=== PATIENT | male | born 1965 | race Caucasian/White ===

== ENCOUNTER 2023-03-16 07:48 | Outpatient (RCR) | payer OTHER, SELFPAY | END 2023-03-18 14:41 | disposition home or self-care (01) | LOC: CR 07:48 | PROVIDERS: PCP Nurse Practitioner Family; Visit Provider Nurse Practitioner Family | DX: I25.10 Atherosclerotic heart disease of native coronary artery without angina pectoris (principal) ==

== ENCOUNTER 2023-03-23 07:52 | Outpatient (OUT) | payer OTHER, SELFPAY ==
[2023-03-23 09:18] LABS: Alanine Aminotransferase 24 U/L (16-63); Anion Gap 13.3; Aspartate Amino Transferase 15 U/L (15-37); BUN Creatinine Ratio 16.9; Calcium 8.9 mg/dL (8.5-10.1); Carbon Dioxide 27.6 mmol/L (21.0-32.0); Chloride 99 mmol/L (98-107); Chol HDL Ratio 2.4; Cholesterol 95 mg/dL (<=200); Estimated GFR (African America >60 (>=60); Estimated GFR (Non-African Ame >60 (>=60); Glucose 151 mg/dL (74-106); HDL Cholesterol 39 mg/dL (40-60); Potassium 3.9 mmol/L (3.5-5.1); Sodium 136 mmol/L (136-145); Triglycerides 44 mg/dL (<=150); VLDL CHOLESTEROL 8.8 mg/dL
== END 2023-03-23 07:53 ==
LOC: LAB 07:54
PROVIDERS: PCP Nurse Practitioner Family
DX: I25.10 Atherosclerotic heart disease of native coronary artery without angina pectoris (principal); I25.5 Ischemic cardiomyopathy; E78.2 Mixed hyperlipidemia
CPT/HCPCS: 36415; 80048; 80061; 83880; 84450; 84460

== ENCOUNTER 2024-05-19 09:08 | Outpatient (OUT) | payer OTHER, SELFPAY ==
[2024-05-19 09:56] LABS: Basophils Absolute Auto 0.1 10^3/uL (0.0-0.1); Eosinophils Absolute Auto 0.2 10^3/uL (0.0-0.7); Eosinophils Percent Auto 2.5 % (0.9-7.0); Hematocrit 36.9 % (42.0-54.0); Hemoglobin 13.1 g/dL (14.0-18.0); Immature Granulocytes Abs Auto 0.05 10^3/uL (0.00-0.03); Immature Granulocytes Pct Auto 0.6 % (0.0-0.5); Lymphocytes Absolute Auto 1.5 10^3/uL (1.2-3.8); Lymphocytes Percent Auto 17.9 % (20.5-60.0); Mean Corpuscular HGB Conc 35.5 g/dL (29.9-35.2); Mean Corpuscular Hemoglobin 28.9 pg (25.9-34.0); Mean Corpuscular Volume 81.5 fL (80.0-94.0); Mean Platelet Volume 9.4 fL (9.5-13.5); Monocytes Absolute Auto 0.7 10^3/uL (0.3-0.8); Monocytes Percent Auto 8.6 % (1.7-12.0); Neutrophils Absolute Auto 5.6 10^3/uL (1.4-6.5); Neutrophils Percent Auto 69.4 % (43.0-75.0); Platelet Count 276 10^3/uL (150-450); Red Blood Count 4.53 10^6/uL (4.70-6.10); Red Cell Distribution Width 14.4 % (11.0-15.0); White Blood Count 8.1 10^3/uL (4.0-11.0)
[2024-05-19 11:38] LABS: Estimated Average Glucose 108 mg/dL; Glycohemoglobin A1C 5.4 % (4.5-6.2)
[2024-05-19 12:26] LABS: Prostate Specific Antigen Scrn 2.43 ng/mL (<=4.00)
[2024-05-19 12:27] LABS: Alanine Aminotransferase 16 U/L (16-63); Albumin Globulin Ratio 0.9; Albumin Level 3.5 g/dL (3.4-5.0); Alkaline Phosphatase 83 U/L (46-116); Anion Gap 11.7; Aspartate Amino Transferase 11 U/L (15-37); BUN Creatinine Ratio 15.1; Calcium 8.6 mg/dL (8.5-10.1); Carbon Dioxide 27.5 mmol/L (21.0-32.0); Chloride 100 mmol/L (98-107); Chol HDL Ratio 3.1; Cholesterol 126 mg/dL (<=200); Estimated GFR (African America >60 (>=60); Estimated GFR (Non-African Ame >60 (>=60); Free T3 2.48 pg/mL (2.18-3.98); Globulin 3.8 g/dL; Glucose 123 mg/dL (74-106); HDL Cholesterol 41 mg/dL (40-60); LDL Cholesterol Calculated 77.8 mg/dL; Potassium 4.2 mmol/L (3.5-5.1); Sodium 135 mmol/L (136-145); Thyroid Stimulating Hormone 1.186 uIU/mL (0.358-3.740); Total Protein 7.3 g/dL (6.4-8.2); Triglycerides 36 mg/dL (<=150); Uric Acid 3.6 mg/dL (3.5-7.2); VLDL CHOLESTEROL 7.2 mg/dL
[2024-05-20 10:11] LABS: Insulin 10.6 uIU/mL (2.6-24.9)
== END 2024-05-19 09:09 | disposition home or self-care (01) ==
LOC: LAB 09:11
PROVIDERS: PCP Nurse Practitioner Family; Visit Provider Nurse Practitioner Family
DX: R63.4 Abnormal weight loss (principal)
CPT/HCPCS: 36415; 80053; 80061; 83036; 83525; 83540; 84436; 84443; 84481; 84550; 85025; G0103

== ENCOUNTER 2024-10-03 07:33 | Observation (INO) | payer OTHER, SELFPAY ==
[2024-10-03] VITALS (20 sets, daily range): BP systolic 90–128; BP diastolic 46–78; PULSE 61–98; TEMP 36.4–36.8; O2SAT 95–99; BMI 29.8; BMI 30.6
--- OUTSIDE RECORDS SUMMARY | 2024-10-03 07:39 | XMS_ITS | CCD ---
Author Organization [facility] Care Team Providers Care Power Transformer Repairer Name Role Phone MD yLdia Wheat Primary Care Provider [phone] MD Andrew Balbuena Admit Provider MD Andrew Balbuena Attending Provider MD Andrew Balbuena Referring Provider [phone] Lydia Wheat Primary Care Unavailable Andrew Balbuena Referring Unavailable Andrew Balbuena Attending Unavailable Anrdew Balbuena Admitting Unavailable Chelsea Cheatham Unavailable Unavailable Unavailable MISRachel, DR SANDRA Attending Unavailable CHELSEA CHEATHAM Primary Care Unavailable LUIS BERRIOS Consulting Unavailable YOVANA, DR SANDRA Admitting Unavailable CHELSEA CHEATHAM Primary Care Unavailable LUIS BERRIOS Attending Unavailable LUIS BERRIOS Admitting Unavailable LUIS BERRIOS Consulting Unavailable YOVANA, DR SANDRA Attending Unavailable CHELSEA CHEATHAM Consulting Unavailable CHELSEA CHEATHAM Primary Care Unavailable YOVANA, DR SANDRA Admitting Unavailable GLORIA .MADISON Attending Unavailable MADISON BRYANT Admitting Unavailable DR LYDIA ENCISO Primary Care Unavailable DR MELIDA SHEPHERD Consulting Unavailable AFIA Orourke, ROSA Consulting Unavailable GLORIA ., MADISON Consulting Unavailable Gary, Ms. Luis Gavin Attending Paolo Vega, Ms. Luis Gavin Referring Paolo Wheat, Dr. Lydia Kam Primary Care Unavail urbano Vega, Ms. Luis Gavin Attending Paolo Vega, Ms. Luis Gavin Attending Paolo Vega, Ms. Luis Gavin Referring Paolo Wheat, Dr. Lydia Kam Primary Care Unavail urbano Vega, Ms. Luis Gavin Attending Paolo Haile, Dr. Shyam Ruelas Attending Joyce Vega, Ms. Luis Gavin Attending Paolo Vega, MsSharad Gavin Referring Paolo Vega, Ms. Luis Gavin Referring Paolo Vega, MsSharad Gavin Attending Paolo Camp, Dr. Oro Attending Scar Camp, Dr. 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 90 tablet 3 05/25/2024 05/25/2025 Active Start: 11-17-2022 End: 05-25-2024 take 1 tablet by mouth once daily at bedtime atorvastatin (Lipitor) 80 mg tablet Take 1 tablet (80 mg) by mouth once daily at bedtime. 03/15/2023 05/25/2024 Discontinued (Discontinued by another clinician) carvedilol 6.25 mg oral tablet (8 sources) alpha-Adrenergic Keturah, beta-Adrenergic Keturah Start: 06-11-2023 take 1 tablet by mouth twice daily carvedilol (Coreg) 6.25 mg tablet Take 1 tablet (6.25 mg) by mouth 2 times daily (morning and late afternoon). 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 90 tablet 3 11/19/2023 11/18/2024 Active furosemide 20 mg oral tablet (9 sources) Loop Diuretic Start: 07-14-2023 End: 05-25-2024 take 1 tablet by mouth once daily as needed furosemide (Lasix) 20 mg tablet Indications: Cardiomyopathy, ischemic , Essential hypertension, benign Take 1 tablet (20 mg) by mouth once daily as needed (use daily as needed for swelling). 90 tablet 3 07/14/2023 05/25/2024 Discontinued (Discontinued by another clinician) Start: 11-26-2022 Furosemide 20 MG Oral Tablet TAKE 1 TABLET BY MOUTH ONCE DAILY FOR THE NEXT 3 DAYS THEN NEEDED FOR LOWER EXTREMITY EDEMA Quantity: 30 Refills: 2 Ordered: 26-Nov-2022 Romaine Vega APRN-Luis [facility] Start : 26-Nov-2022 Active metFORMIN hydrochloride 500 mg oral tablet (1 source) Biguanide End: 04-01-2023 take 1 tablet by mouth twice daily metFORMIN HCl - 500 MG Oral Tablet Take 1 tablet twice daily Quantity: 28 Refills: 0 Ordered: 18-Mar-2023 DO End : 01-Apr-2023 Active nitroglycerin 0.4 mg sublingual tablet (7 sources) Nitrate Vasodilator Start: 06-23-2023 nitroglycerin (Nitrostat) 0.[address] 1 tablet (0.4 mg) under the tongue every 5 minutes if needed. 06/23/2023 Active Start: 11-26-2022 Nitroglycerin 0.4 MG Sublingual Tablet Sublingual DISSOLVE 1 TABLET UNDER THE TONGUE NEEDED FOR CHEST PAIN. 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 06/11/2023 05/25/2024 Discontinued (Discontinued by another clinician) Start: 11-17-2022 take 25 mg by mouth once daily Spironolactone Active 25 MG PO Daily November 17, 2022 12:00am ticagrelor 90 mg oral tablet (7 sources) Start: 11-17-2022 End: 11-19-2023 take 1 tablet by mouth twice daily Brilinta 90 mg tablet Take 1 tablet (90 mg) by mouth 2 times a day. 0 02/16/2023 11/19/2023 Discontinued (Therapy completed) valsartan 80 mg oral tablet (8 sources) Angiotensin 2 Receptor Keturah Start: 11-24-2023 take 1 tablet by mouth twice daily valsartan (Diovan) 80 mg tablet Indications: Essential hypertension, benign TAKE 1 TABLET BY MOUTH TWICE A DAY 180 tablet 3 11/24/2023 Active Start: 06-11-2023 take 1 tablet by caleb th twice daily valsartan (Diovan) 80 mg tablet Take 1 tablet (80 mg) by mouth 2 times a day. 0 06/11/2023 Active Start: 11-17-2022 take 80 mg by mouth twice kelton y Valsartan Active 80 MG PO Twice daily 60 November 17, 2022 12:00am Problems Active Problems Problem Classification Problem Date Documented Da te Episodic/Chronic Acute myocardial infarction (19 sources) Acute myocardial infarction of anterior wall; Translations: [ST elevation (STEMI) myocardial infarction involving other coronary artery of anterior wall] Onset: 11-15-2022 11-15-2022 Chronic Congestive heart failure; nonhypertensive (2 sources) Heart failure with reduced ejection fraction; Translations: [Unspecified systolic (congestive) heart failure] Onset: 11-15-2022 11-15-2022 Chronic Coronary atherosclerosis and other heart disease (20 sources) Coronary arteriosclerosis; Translations: [Atherosclerotic heart disease of lytton coronary artery without angina pectoris] Onset: 11-15-2022 11-15-2022 Chronic Disorders of lipid metabolism (13 sources) Mixed hyperlipidemia; Translations: [Mixed hyperlipidemia] Onset: 12-11-2022 11-19-2023 Chronic Essential hypertension (11 sources) Benign hypertension; Translations: [Benign essential hypertension] Onset: 07-09-2023 11-19-2023 Chronic Nonspecific chest pain (3 sources) Other chest pain; Translations: [OTHER CHEST PAIN] Onset: 11-15-2022 Episodic Other lower respiratory disease (1 source) Acute pulmonary edema; Translations: [ACUTE PULMONARY EDEMA] Onset: 11-18-2022 Episodic Other nutritional; endocrine; and metabolic disorders (2 sources) Body mass index (BMI) 32.0-32.9, adult; Translations: [Body mass index (BMI) 32.0-32.9, adult] Onset: 05-25-2024 Chronic Other nutritional; endocrine; and metabolic disorders (2 sources) Body mass index 30+ - obesity; Translations: [Body mass index (BMI) 32.0-32.9, adult] Onset: 05-25-2024 05-25-2024 Chronic Residual codes; unclassified (4 sources) Chews tobacco ; Translations: [Tobacco use disorder] Episodic Substance-related disorders (4 sources) Nicotine dependence, chewing tobacco, uncomplicated; Translations: [Nicotine dependence] Onset: 05-25-2024 Chronic Unclassified (1 source) CONTACT W/AND (SUSP) EXPOS COVID-19; Translations: [CONTACT W/AND (SUSP) EXPOS COVID-19] Onset: 11-18-2022 Past or Other Problems Problem Classification Problem Date Documented Da te Episodic/Chronic Coronary atherosclerosis and other heart disease (3 sources) Stented coronary artery; Translations: [Coronary angioplasty status] Onset: 11-19-2023 11-15-2022 Episodic Other nutritional; endocrine; and metabolic disorders (7 sources) Obesity; Translations: [Obesity, unspecified] Onset: 07-09-2023 Resolved: 11-19-2023 11-19-2023 Chronic Other screening for suspected conditions (not mental disorders or infectious disease) (7 sources) Echocardiogram abnormal; Translations: [Nonspecific (abnormal) findings on radiological and other examination of other intrathoracic organs] Onset: 07-09-2023 Resolved: 11-19-2023 11-19-2023 Episodic Unclassified (5 sources) Never smoked tobacco; Translations: [Never a smoker] Results Test Name Value Interpretation Reference Range Facility Tobacco Screening.on 023 Tobacco use status CPHS a) Yes M [facility] [address] DO Work Phone: Tobacco Screening. Yes [facility] [address] DO Work Phone: Echocardiogramon 04-29-[address], [address] [place] [address] TRANSTHORACIC ECHOCARDIOGRAM REPORT Patient Name: CARSON Joey Physician: [id number] Israel Funez MD, [facility] Study Date: 04/29/2023 Referring Physician: LUIS VEGA MRN/PID: [id number] PCP: Accession/Order#: [id number] Department Location: [facility] Date of : 1965 Fellow: Gender: M Nurse: Dayne Wilkins RN Admit Date: Area Relief Pilot: Chata Solitario [facility], T Height: 180.34 cm CC Report to: Weight: 113.85 kg Study Type: Echocardiogram BSA: 2.32 m2 Blood Pressure: 118 /72 mmHg Diagnosis/ICD: I25.10-Atheroscleroti c heart disease of lytton coronary artery without angina pectoris; I25.5-Ischemic cardiomyopathy Indication: Hyperlipidemia, [place] and PTCA-11/15/2022, Chewing Tobacco Use, HTN, Obesity Procedure/CPT: Echo Limited-09412 Study Detail: The following Echo studies were performed: 2D and M-Mode. Optison used as a contrast agent for endocardial border definition. Total contrast used for this procedure was 0.7 mL via IV push. PHYSICIAN INTERPRETATION: Left Ventricle: Left ventricular systolic function is normal, with an estimated ejection fraction of 60-65%. There are no regional wall motion abnormalities. The left ventricular cavity size is normal. Left ventricular diastolic filling was not assessed. Left Atrium: The left atrium is upper limits of normal in size. Right Ventricle: The right ventricle is normal in size. There is normal right ventricular global systolic function. Right Atrium: The right atrium is normal in size. Aortic Valve: The aortic valve appears structurally normal. Aortic valve regurgitation was not assessed. Mitral Valve: The mitral valve is normal in structure. Mitral valve regurgitation was not assessed. Tricuspid Valve: The tricuspid valve is structurally normal. Tricuspid regurgitation was not assessed. Pulmonic Valve: The pulmonic valve is structurally normal. The pulmonic valve regurgitation was not assessed. Pericardium: There is no pericardial effusion noted. Aorta: The aortic root is normal. Systemic Veins: The inferior vena cava appears to be of normal size. In comparison to the previous echocardiogram(s): When compared to a study from 11/16/2022, the previously reported wall motion abnormalities in the LAD territory has completely recovered and ejection fraction has improved from 40% up to 65%. CONCLUSIONS: 1. Left ventricular systolic function is normal with a 60-65% estimated ejection fraction. 2. When compared to a study from 11/16/2022, the previously reported wall motion abnormalities in the LAD territory has completely recovered and ejection fraction has improved from 40% up to 65%. QUANTITATIVE DATA SUMMARY: 2D MEASUREMENTS: Normal Ranges: Ao Root d: 2.90 cm (2.0-3.7cm) LAs: 4.10 cm (2.7-4.0cm) RVIDd: 2.80 cm (0.9-3.6cm) IVSd: 1.10 cm (0.6-1.1cm) LVPWd: 1.10 cm (0.6-1.1cm) LVIDd: 5.10 cm (3.9-5.9cm) LVIDs: 3.80 cm LV Mass Index: 92.1 g/m2 LV % FS 25.5 % LV SYSTOLIC FUNCTION BY 2D PLANIMETRY (MOD): Normal Ranges: EF-A4C View: 60.1 % (>=55%) AORTIC VALVE: Normal Ranges: LVOT Diameter: 2.30 cm (1.8-2.4cm) [id number] Israel Funez MD, [facility] Electronically signed on 04/29/2023 at 3:33:21 PM Final Normal [facility] Tobacco Screening.on 023 Tobacco use status CPHS b) No M [facility] [address] DO Work Phone: Cardiac Stress Teston 2022 Cardiac Stress Test [facility] [place] [address] [facility], [address] [facility], [place] [address] Exercise Stress Test Patient Name: CARSON Ordering Physician: KAMI Study Date: 12/12/2022 Reading Physician: [id number] Wendy Camp MD MRN/PID: [id number] Supervising Physician: [id number] Shruti Flores MD Accession/Order#: [id number] Referring Physician: LUIS VEGA Date of : 1965 PCP: Gender: M Fellow: Height: 180.34 cm Nurse: Faina Moreira RN Weight: 113.85 kg Area Relief Pilot: N/A BSA: 2.32 m2 Technologist: BMI: 35.01 kg/m2 Additional Staff: Age: 57 years cc report to: Study Type: Cardiac Stress Test Diagnosis/ICD: I25.10-Atheroscleroti c heart disease; I21.09-ST elevation (STEMI) myocardial infarction involving other coronary artery of anterior wall Indication: STEMI Procedure/CPT: Stress Test Supervision-[id number] Falls Risk: Low: Patient has low risk for sustaining a fall; environmental safety interventions in place. Study Details: Correct procedure and correct patient verified verbally. Patient Performance: The peak heart rate achieved was 112 bpm, which was 69 % of the age predicted target heart rate of 163 bpm. The resting blood pressure was 100/60 mmHg with a heart rate of 80 bpm. The standing blood pressure was 114/60 mmHg with a heart rate of 84 bpm. The blood pressure response was normal. The test was terminated due to: fatigue. Mild sinus tachycardia. Double Product (HR x BP): 152. Baseline ECG: Resting ECG showed normal sinus rhythm with left anterior fascicular block. Normal sinus rhythm with nondiagnostic ST-T changes. Stress Stage Data: + +-- -+------+-------+ HR Sys BP Mendes BP + +-- -+------+-------+ Baseline Resting 80 100 60 + +-- -+------+-------+ Baseline Standing 84 114 60 + +-- -+------+-------+ Modified 98 120 60 + +-- -+------+-------+ Stage 1/2 109 110 60 + +-- -+------+-------+ Stage I 112 114 60 + +-- -+------+-------+ + +---+--- ---+-------+ HR Sys BP Mendes BP + +---+--- ---+-------+ Recovery I 112 100 60 + +---+--- ---+-------+ Recovery II 103 136 64 + +---+--- ---+-------+ Recovery III 90 130 80 + +---+--- ---+-------+ Recovery IV 86 130 80 + +---+--- ---+-------+ Summary: 1. Submaximal graded exercise stress test with nondiagnostic ST-T changes for ischemia. 2. Patient is reported atypical chest pain during recovery but not during exercise. 3. Appropriate hemodynamic response to exercise. 4. Limited exercise tolerance. 5. Recommend referral to cardiac rehab. [id number] Wendy Camp MD Electronically signed on 12/12/2022 at 3:55:12 PM Final Normal [facility] Cardiac Stress Test [facility] [place] [facility] [address] DO Work Phone: LIPID PROFILEon 12-10-2022 CHOL-HDL RATIO NORM SEE BELOW Normal [facility] Comment on above: Result Comment: 3.3 - 4.4 LOW RISK 4.4 - 7.1 AVERAGE RISK 7.1 - 11.0 MODERATE RISK >11.0 HIGH RISK Performed By: #### A LT, LIPID, AST ####[facility] [address] [place] [id number]. Martin Mello Cholesterol [Mass/Vol] 87 mg/dL Normal <=200 [facility] Comment on above: Performed By: #### A LT, LIPID, AST ####[facility] [address] [place] [id number]. Martin Mello Cholesterol in HDL [Mass/Vol] 33 mg/dL Critically low 40-60 [facility] Comment on above: Performed By: #### A LT, LIPID, AST ####[facility] [address] [place] [id number]. Martin Mello Cholesterol in LDL [Mass/Vol] 45.2 mg/dL Normal [facility] Comment on above: Performed By: #### A LT, LIPID, AST ####[facility] [address] [place] [id number]. Martin Mello Cholesterol.total/Choles terol in HDL [Mass ratio] 2.6 {ratio} Normal [facility] Comment on above: Performed By: #### A LT, LIPID, AST ####[facility] [address] [place] [id number]. Martin Mello HDL NORMAL > or = 60 mg/dl - LO W CARDIOVASCULAR RISK <40 mg/dl - HIGH CARDIOVASCULAR RISK Normal [facility] Comment on above: Performed By: #### A LT, LIPID, AST ####[facility] [address] [place], [place] [address]Yx. Martin Mello LDL CALC NORMAL SEE BELOW Normal [facility] Comment on above: Result Comment: <100 mg/dl OPTIMAL 100 - 129 mg/dl NEAR OR ABOVE OPTIMAL 130 - 159 mg/dl BORDERLINE HIGH 160 - 189 mg/dl HIGH >190 mg/dl VERY HIGH Performed By: #### A LT, LIPID, AST ####[facility] [address] [place] [id number]. Martin Mello Triglyceride [Mass/Vol] 44 mg/dL Normal <=150 [facility] Comment on above: Performed By: #### A LT, LIPID, AST ####[facility] [address] [place] [id number]. Martin Mello VLDL CALC 8.8 mg/dL Normal [facility] Comment on above: Performed By: #### A LT, LIPID, AST ####[facility] [address] [place] [id number]. Martin Mello SGOTon 12-10-2022 AST [Catalytic activity/Vol] 16 U/L Normal 15-37 [facility] Comment on above: Performed By: #### A LT, LIPID, AST ####[facility] [address] [place] [id number]. Martin Mello SGPTon 12-10-2022 ALT [Catalytic activity/Vol] 30 U/L Normal 16-63 [facility] Comment on above: Performed By: #### A LT, LIPID, AST ####[facility] [address] [place] [id number]. Martin Mello GLYCOHEMOGLOBIN A1Con 2022 ADA RECOMMENDATION SEE BELOW Normal [facility] Comment on above: Result Comment: ADA RECOMMENDED LIMIT 4.0 - 6.0 ADA THERAPEUTIC TARGET < 7.0 ACTION SUGGESTED > 7.0 Performed By: #### A 1C #### [facility] [address] [place] [address] Dr. Martin Mello Glucose [Mass/Vol] 163 mg/dL Normal [facility] Comment on above: Performed By: #### A 1C #### [facility] [address] [place] [address] Dr. Martin Mello HbA1c (Bld) [Mass fraction] 7.3 % Critically high 4.5-6.2 [facility] Comment on above: Performed By: #### A 1C #### [facility] [address] [place] [address] Dr. Martin Mello PROF CHEM 8 (BAS METB)on Anion gap [Moles/Vol] 12.4 mmol/L Normal [facility] Comment on above: Performed By: #### B MP #### [facility] [address] [place] [address] Dr. Martin Mello Calcium [Mass/Vol] 9.2 mg/dL Normal 8.5-10.1 [facility] Comment on above: Performed By: #### B MP #### [facility] [address] [place] [address] Dr. Martin Mello Chloride [Moles/Vol] 102 mmol/L Normal 98-107 [facility] Comment on above: Performed By: #### B MP #### [facility] [address] [place] [address] Dr. Martin Mello CO2 [Moles/Vol] 26.6 mmol/L Normal 21.0-32.[address] [facility] Comment on above: Performed By: #### B MP #### [facility] [address] [place] [address] Dr. Martin Mello Creatinine [Mass/Vol] 0.81 mg/dL Normal 0.70-1.30 [facility] Comment on above: Performed By: #### B MP #### [facility] [address] [place] [address] Dr. Martin Mello EGFR-AF SWAZI >60 Normal >=[address] [facility] Comment on above: Performed By: #### B MP #### [facility] [address] [place] [address] [address] Martin Mello EGFR-NON AF SWAZI >60 Normal >=60 [facility] Comment on above: Performed By: #### B MP #### [facility] [address] [place] [address] [address] Martin Mello Glucose [Mass/Vol] 205 mg/dL Critically high 74-106 [facility] Comment on above: Performed By: #### B MP #### [facility] [address] [place] [address] [address] Martin Mello Potassium [Moles/Vol] 4.0 mmol/L Normal 3.5-5.1 [facility] Comment on above: Performed By: #### B MP #### [facility] [address] [place] [address] [address] Martin Mello Sodium [Moles/Vol] 137 mmol/L Normal 136-145 [facility] Comment on above: Performed By: #### B MP #### [facility] [address] [place] [address] [address] Martin Mello Urea nitrogen [Mass/Vol] 10.0 mg/dL Normal 7.0-18.0 [facility] Comment on above: Performed By: #### B MP #### [facility] [address] [place] [address] [address] Martin Mello Urea nitrogen/Creatinine [Mass ratio] 12.3 mg/mg Normal [facility] Comment on above: Performed By: #### B MP #### [facility] [address] [place] [address] [address] Martin Mello Tobacco Screening.on 023 Adult depression screening assessment No [facility] [address] DO Work Phone: [phone] Fall risk assessment c) Not medically indicated [facility] [place] [address] [place] Work Phone: [phone] Tobacco use status CPHS b) No M [facility] [address] DO Work Phone: [phone] Anisocytosis LM Ql (Bld)Orde red By: Andrew Balbuena on 11-17-2022 Anisocytosis Ql (Bld) Moderate [facility] Basic Metabolic Panelon 11-05 Anion gap [Moles/Vol] 9.9 mmol/L Normal 6.0-15.0 [facility] Comment on above: Order Comment: FASTI NG Y Performed By: #### S CAN CBC, BMP, LIPID #### [facility] [address] Calcium [Mass/Vol] 8.8 mg/dL Normal 8.2-10.2 [facility] Comment on above: Order Comment: FASTI NG Y Performed By: #### S CAN CBC, BMP, LIPID #### [facility] [address] Chloride [Moles/Vol] 97 mmol/L Normal 95-114 [facility] Comment on above: Order Comment: FASTI NG Y Performed By: #### S CAN CBC, BMP, LIPID #### [facility] [address] [place] [address] CO2 [Moles/Vol] 27.1 mmol/L Normal 22.0-30.0 [facility] Comment on above: Order Comment: FASTI NG Y Performed By: #### S CAN CBC, BMP, LIPID #### [facility] [address] [place] [address] Creatinine [Mass/Vol] 0.96 mg/dL Normal 0.64-1.27 [facility] Comment on above: Order Comment: FASTI NG Y Performed By: #### S CAN CBC, BMP, LIPID #### [facility] [address] [place] [address] Creatinine Clr Calc Pharmacy 116.86 [facility] Comment on above: Order Comment: FASTI NG Y Performed By: #### S CAN CBC, BMP, LIPID #### [facility] [address] [place] [address] Estimated GFR ( Consuelo > 60 [facility] Comment on above: Order Comment: FASTI NG Y Result Comment: GFR estimated reference range: According to KDOQI guidelines, <60 ml/min/1.73m2 is sufficient to diagnose a patient with chronic kidney disease. Performed By: #### S CAN CBC, BMP, LIPID #### [facility] [address] [place] [address] [place] Estimated GFR (Non- Am > 60 Normal [facility] Comment on above: Order Comment: FASTI NG Y Performed By: #### S CAN CBC, BMP, LIPID #### [facility] [address] [place] [address] [place] Glucose [Mass/Vol] 262 mg/dL High 70-100 [facility] Comment on above: Order Comment: FASTI NG Y Result Comment: [facility] Glucose Reference Range is dependent on time and content of last meal. Glucose of more than 200 mg/dL in a nonstressed, ambulatory subject supports the diagnosis of Diabetes Mellitus. ADA recommended reference range Performed By: #### S CAN CBC, BMP, LIPID #### [facility] [address] Potassium [Moles/Vol] 4.0 mmol/L Normal 3.5-5.1 [facility] Comment on above: Order Comment: FASTI NG Y Performed By: #### S CAN CBC, BMP, LIPID #### [facility] [address] [place] [address] [place] Sodium [Moles/Vol] 130 mmol/L Low 136-146 [facility] Comment on above: Order Comment: FASTI NG Y Performed By: #### S CAN CBC, BMP, LIPID #### [facility] [address] [place] [address] [place] Urea nitrogen [Mass/Vol] 14 mg/dL Normal 9-23 [facility] Comment on above: Order Comment: FASTI NG Y Performed By: #### S CAN CBC, BMP, LIPID #### [facility] [address] [place] [address] [place] Basophils Auto (Bld) [#/Vol] Ordered By: Andrew Balbuena on 11-17-2022 Basophils (Bld) [#/Vol] 0.1 10*3/uL 0.0-0.2 [facility] Basophils/100 WBC Auto (Bld) Ordered By: Andrew Balbuena on 11-17-2022 Basophils/100 WBC (Bld) 0.6 % . [facility] Cholesterol [Mass/volume] in Serum or PlasmaOrdered By: Wendy Camp on 11-17-2022 Cholesterol [Mass/Vol] 107 mg/dL 140-200 [facility] Comment on above: Chol less than 200 m g/dl low riskChol 201-239 mg/dl borderline riskChol 240 mg/dl and greater high risk Cholesterol in LDL Calc [Mas s/Vol]Ordered By: Wendy Camp on 11-17-2022 Cholesterol in LDL [Mass/Vol] 69 mg/dL 0-100 [facility] Comment on above: LDL ATP III CLASSIFI CATIONLDL less than 100 mg/dL OptimalLDL 100-129 mg/dL Near or above optimalLDL 130-159 mg/dL Borderline highLDL 160-189 mg/dL HighLDL greater than 189 mg/dL Very high Cholesterol in VLDL Calc [Ma ss/Vol]Ordered By: Wendy Camp on 11-17-2022 Cholesterol in VLDL [Mass/Vol] 11 mg/dL [facility] Creatinine and Glomerular fi ltration rate.predicted panel (S/P/Bld)Ordered By: Andrew Balbuena on 11-17-2022 Creatinine [Mass/Vol] 0.96 mg/dL 0.64-1.27 [facility] ECH echo transthoracicon ECH echo transthoracic [place] [address] Echocardiogram Signed Patient: Carson Mendoza MR#: [id number] : 1965 Acct:[id number] Age/Sex: 57 / M ADM Date: 11/15/22 Loc: Room: [address] [place] [address] Type: ADM IN Attending Dr: Andrew Balbuena MD Ordering Provider: Andrew Balbuena MD Date of Service: 11/16/2209/26/500 ECH/ECH echo transthoracic: ANTERIOR STEMI Copies to: Israel Funez MD, [facility] Andrew Balbuena MD BSA: 2.5 m2 BP: 121/72 mmHg HR: 105 Reason For Study: ANTERIOR STEMI History: No cardiac history per patient Interpretation Summary Mild concentric left ventricular hypertrophy. There are regional wall motion abnormalities as specified. There is akinesis involving the distal two thirds of the septum extending into the left ventricular apex and the distal lateral wall Ejection Fraction = 40-45%. A variety of Doppler measurements indicate impaired left ventricular relaxation, which is associated with grade I/IV or mild diastolic dysfunction. There is no prior echocardiogram noted for this patient. Procedure/Quality: A two-dimensional transthoracic echocardiogram with color flow, Doppler and injection of contrast agent Definity was performed. The study was technically fair in quality. There is no prior echocardiogram noted for this patient. Left Ventricle: Mild concentric left ventricular hypertrophy. Ejection Fraction = 40-45%. A variety of Doppler measurements indicate impaired left ventricular relaxation, which is associated with grade I/IV or mild diastolic dysfunction. There are regional wall motion abnormalities as specified. There is akinesis involving the distal two thirds of the septum extending into the left ventricular apex and the distal lateral wall. Left Atrium: The left atrium appears normal in size. The atrial septum appears normal. Right Atrium: The right atrium appears normal in size. Right Ventricle: The right ventricular size, thickness and function are normal. Aortic Valve: The aortic valve is normal in structure and function. Mitral Valve: The mitral valve is normal in structure and function. Tricuspid Valve: The tricuspid valve is normal in structure and function. Pulmonic Valve: The pulmonic valve is not well seen, but is grossly normal. Arteries: The aortic root is normal size. Pericardium/Pleura: No pericardial effusion seen. There is no pleural effusion. IVC/Hepatic Viens: The IVC is normal in size with an inspiratory collapse of greater then 50%, suggesting normal right atrial pressure. Miscellaneous: No thrombus, vegetation or mass is seen. Measurements with Normals IVSd: 1.3 cm (0.7-1.1 cm)LVIDd: 4.0 cm (3.7-5.4 cm) LVPWd: 1.4 cm (0.7-1.1 cm)LVIDs: 2.6 cm (2.3-3.6 cm) LA dimension: 4.0 cm (2.3-4.0 cm)Ao root diam: 3.4 cm(2.0-3.6 cm) asc Aorta Diam: 3.5 cm(2.1-3.4cm) Doppler with Normals RVSP(TR): 21.6 mmHg (18-35mmHg) MV E max antonio: 86.5 cm/sec(0.8-1.3m/s) MV A max antonio: 53.1 cm/sec(0.0-0.0m/s) MV E/A: 1.6 (<1.5) MMode/2D Measurements Calculations RVDd: 2.8 cm FS: 34.3 % Ao root area: LVLd ap4: 8.9 cm TAPSE: 1.9 cm EDV(Teich): 9.0 cm2 EDV(MOD-sp4): RV S Antonio: 70.9 ml 200.0 ml 21.5 cm/sec ESV(Teich): LVLs ap4: 7.7 cm 25.6 ml ESV(MOD-sp4): EF(Teich): 63.9 % 131.0 ml EF(MOD-sp4): 34.5 % __ SV(MOD-sp4): LAV(MOD-sp4): LA A4 area: 12.5 cm2 69.0 ml 32.5 ml LA length (vol): 3.6 cm Doppler Measurements Calculations E/E' lat: 9.1 TV max P.0 mmHg TR max antonio: 203.6 cm/sec E/E' med: 11.2 TR max P.6 mmHg RAP systole: 5.0 mmHg Transcribed By: SCV Performed At: 11/17/22 0948 Signed By: Israel Funez MD, [facility] 11/17/22 1052 Normal [facility] Eosinophils Auto (Bld) [#/Vo l]Ordered By: Andrew Balbuena on 11-17-2022 Eosinophils (Bld) [#/Vol] 0.2 10*3/uL 0.0-0.45 [facility] Eosinophils/100 WBC Auto (Bl d)Ordered By: Andrew Balbuena on 11-17-2022 Eosinophils/100 WBC (Bld) 1.3 % . [facility] Erythrocyte distribution wid th Auto (RBC) [Ratio]Ordered By: Andrew Balbuena on 11-17-2022 Erythrocyte distribution width (RBC) [Ratio] 14.2 % 12.0-14.8 [facility] Estimated glomerular filtrat ion rate (GFR) non- AmericanOrdered By: Andrew Balbuena on 11-17-2022 GFR/1.73 sq M.predicted among non-blacks MDRD (S/P/Bld) [Vol rate/Area] > 60 mL/Min [facility] Hematocrit Auto (Bld) [Volum e fraction]Ordered By: Andrew Balbuena on 11-17-2022 Hematocrit (Bld) [Volume fraction] 43.1 % 38.8-50.0 [facility] Hemoglobin [Mass/volume] in BloodOrdered By: Andrew Balbuena on 11-17-2022 Hemoglobin (Bld) [Mass/Vol] 14.9 g/dL 13.0-17.0 [facility] Leukocytes [#/volume] correc nunu for nucleated erythrocytes in Blood by Automated counOrdered By: Andrew Balbuena on 11-17-2022 WBC corrected for nucl RBC Auto (Bld) [#/Vol] 14.0 10*3/uL 4.1-10.5 [facility] Lipid Panelon 11-17-2022 Cholesterol [Mass/Vol] 107 mg/dL Low 140-200 [facility] Comment on above: Order Comment: YOMI Daniels Result Comment: Chol less than 200 mg/dl low risk Chol 201-239 mg/dl borderline risk Chol 240 mg/dl and greater high risk Performed By: #### S CAN CBC, CMP, HS TROP #### [facility] [address] Cholesterol in HDL [Mass/Vol] 26 mg/dL Low 29-71 [facility] Comment on above: Order Comment: YOMI Daniels Result Comment: HDL CHOL ATP-III CLASSIFICATION Cardiovascular Risk HDL > or equal to 60 mg/dL LOW HDL < 40 mg/dL HIGH Performed By: #### S CAN CBC, CMP, HS TROP #### [facility] [address] Cholesterol.total/Choles terol in HDL [Mass ratio] 4.1 {ratio} Normal <5.0 [facility] Comment on above: Order Comment: YOMI Daniels Result Comment: PERF ORMED BY: [place] [address] PATHOLOGIST [employer] JANIYA SERRANO M.D. Performed By: #### S CAN CBC, CMP, HS TROP #### [facility] [address] LDL Cholesterol,Calculated 69 mg/dL Normal 0-100 [facility] Comment on above: Order Comment: YOMI Daniels Result Comment: LDL ATP III CLASSIFICATION LDL less than 100 mg/dL Optimal LDL 100-129 mg/dL Near or above optimal LDL 130-159 mg/dL Borderline high LDL 160-189 mg/dL High LDL greater than 189 mg/dL Very high Performed By: #### S CAN CBC, CMP, HS TROP #### [address] Triglyceride w/Reflex 59 mg/dL Normal 35-149 [facility] Comment on above: Order Comment: YOMI Daniels Result Comment: TRIG ATP III CLASSIFICATION TRIG less than 150 mg/dL Normal TRIG 150-199 mg/dL Borderline high TRIG 200-500 mg/dL High TRIG greater than 500 mg/dL Very high Standard traceable to the Center for Disease Conrtrol and Prevention (CDC) test method. Performed By: #### S CAN CBC, CMP, HS TROP #### [facility] [address] [place] [address] VLDL CHOLESTEROL 11 mg/dL Normal [facility] Comment on above: Order Comment: YOMI Daniels Performed By: #### S CAN CBC, CMP, HS TROP #### [facility] [address] [place] [address] [place] Lymphocytes Auto (Bld) [#/Vo l]Ordered By: Andrew Balbuena on 11-17-2022 Lymphocytes (Bld) [#/Vol] 2.9 10*3/uL 1.00-4.8 [facility] Lymphocytes/100 WBC Auto (Bl d)Ordered By: Andrew Balbuena on 11-17-2022 Lymphocytes/100 WBC (Bld) 20.9 % . [facility] MCH Auto (RBC) [Entitic mass ]Ordered By: Andrew Balbuena on 11-17-2022 MCH (RBC) [Entitic mass] 27.8 pg 27.5-35.2 [facility] MCHC Auto (RBC) [Mass/Vol]Or dered By: Andrew Balbuena on 11-17-2022 MCHC (RBC) [Mass/Vol] 34.6 g/dL 32.5-35.6 [facility] MCV Auto (RBC) [Entitic vol] Ordered By: Andrew Balbuena on 11-17-2022 MCV (RBC) [Entitic vol] 80.4 fL 83.5-101 [facility] Microcytes LM Ql (Bld)Ordere d By: Andrew Balbuena on 11-17-2022 Microcytes Ql (Bld) Moderate [facility] Monocytes Auto (Bld) [#/Vol] Ordered By: Andrew Balbuena on 11-17-2022 Monocytes (Bld) [#/Vol] 1.6 10*3/uL 0.0-0.8 [facility] Monocytes/100 WBC Auto (Bld) Ordered By: Andrew Balbuena on 11-17-2022 Monocytes/100 WBC (Bld) 11.8 % . [facility] Neutrophils Auto (Bld) [#/Vo l]Ordered By: Andrew Balbuena on 11-17-2022 Neutrophils (Bld) [#/Vol] 9.1 10*3/uL 1.8-7.7 [facility] Neutrophils/100 WBC Auto (Bl d)Ordered By: Andrew Balbuena on 11-17-2022 Neutrophils/100 WBC (Bld) 65.4 % . [facility] No Panel InformationOrdered By: Andrew Balbuena on 11-17-2022 Estimated GFR () > 60 mL/Min [facility] Comment on above: GFR estimated refere nce range: According to KDOQI guidelines, <60 ml/min/1.73m2 is sufficient to diagnose a patient with chronic kidney disease. Pharmacy Creatinine Clearance (Chem 116.86 [facility] Nucleated erythrocytes [Pres ence] in Blood by Automated countOrdered By: Andrew Balbuena on 11-17-2022 Nucleated RBC Auto Ql (Bld) 0.1 /100{WBC} 0-0.5 [facility] Platelet adequacy [Presence] in Blood by Light microscopyOrdered By: Andrew Balbuena on 11-17-2022 Platelets LM Ql (Bld) Normal Normal [facility] Platelet mean volume Auto (B ld) [Entitic vol]Ordered By: Andrew Balbuena on 11-17-2022 Platelet mean volume (Bld) [Entitic vol] 7.9 fL 6.6-10.1 [facility] Platelet morphology finding [Identifier] in BloodOrdered By: Andrew Balbuena on 11-17-2022 Platelet morphology finding Nom (Bld) Normal Normal [facility] Platelets Auto (Bld) [#/Vol] Ordered By: Andrew Balbuena on 11-17-2022 Platelets (Bld) [#/Vol] 347 10*3/uL 150-450 [facility] RBC Auto (Bld) [#/Vol]Ordere d By: Andrew Balbuena on 11-17-2022 RBC (Bld) [#/Vol] 5.36 10*6/uL 3.90-5.60 [facility] RBC morphologyOrdered By: St destini Balbuena on 11-17-2022 RBC morphology finding Nom (Bld) N/A [facility] Scan and CBCon 11-17-2022 Anisocytosis Ql (Bld) Moderate Normal [facility] Comment on above: Performed By: #### S CAN CBC, CMP, HS TROP #### [facility] [address] [place] [address] [place] Basophils (Bld) [#/Vol] 0.1 10*3/uL Normal 0.0-0.2 [facility] Comment on above: Performed By: #### S CAN CBC, CMP, HS TROP #### [facility] [address] [place] [address] [place] Basophils/100 WBC (Bld) 0.6 % Normal . [facility] Comment on above: Performed By: #### S CAN CBC, CMP, HS TROP #### [facility] [address] [place] [address] [place] Eosinophils (Bld) [#/Vol] 0.2 10*3/uL Normal 0.0-0.45 [facility] Comment on above: Performed By: #### S CAN CBC, CMP, HS TROP #### [facility] [address] [place] [address] [place] Eosinophils/100 WBC (Bld) 1.3 % Normal . [facility] Comment on above: Performed By: #### S CAN CBC, CMP, HS TROP #### [facility] [address] [place] [address] Erythrocyte distribution width (RBC) [Ratio] 14.2 % Normal 12.0-14.8 [facility] Comment on above: Performed By: #### S CAN CBC, CMP, HS TROP #### [address] Hematocrit (Bld) [Volume fraction] 43.1 % Normal 38.8-50.0 [facility] Comment on above: Performed By: #### S CAN CBC, CMP, HS TROP #### [address] Hemoglobin (Bld) [Mass/Vol] 14.9 g/dL Normal 13.0-17.0 [facility] Comment on above: Performed By: #### S CAN CBC, CMP, HS TROP #### [place] [address] [place] Lymphocytes (Bld) [#/Vol] 2.9 10*3/uL Normal 1.00-4.8 [facility] Comment on above: Performed By: #### S CAN CBC, CMP, HS TROP #### [place] [address] [place] Lymphocytes/100 WBC (Bld) 20.9 % Normal . [facility] Comment on above: Performed By: #### S CAN CBC, CMP, HS TROP #### [address] MCH (RBC) [Entitic mass] 27.8 pg Normal 27.5-35.2 [facility] Comment on above: Performed By: #### S CAN CBC, CMP, HS TROP #### [facility] [address] [place] [address] [place] MCV (RBC) [Entitic vol] 80.4 fL Low 83.5-101 [facility] Comment on above: Performed By: #### S CAN CBC, CMP, HS TROP #### [facility] [address] Mean Corpuscular HGB Conc 34.6 g/dL Normal 32.5-35.6 [facility] Comment on above: Performed By: #### S CAN CBC, CMP, HS TROP #### [facility] [address] Microcytosis Moderate Normal [facility] Comment on above: Performed By: #### S CAN CBC, CMP, HS TROP #### [facility] [address] [place] [address] [place] Monocytes (Bld) [#/Vol] 1.6 10*3/uL High 0.0-0.8 [facility] Comment on above: Performed By: #### S CAN CBC, CMP, HS TROP #### [facility] [address] [place] [address] [place] Monocytes/100 WBC (Bld) 11.8 % Normal . [facility] Comment on above: Performed By: #### S CAN CBC, CMP, HS TROP #### [facility] [address] [place] [address] [place] Neutrophils (Bld) [#/Vol] 9.1 10*3/uL High 1.8-7.7 [facility] Comment on above: Performed By: #### S CAN CBC, CMP, HS TROP #### [facility] [address] [place] [address] [place] Neutrophils/100 WBC (Bld) 65.4 % Normal . [facility] Comment on above: Performed By: #### S CAN CBC, CMP, HS TROP #### [facility] [address] [place] [address] [place] NRBC% 0.1 /100{WBC} Normal 0-0.5 [facility] Comment on above: Performed By: #### S CAN CBC, CMP, HS TROP #### [facility] [address] [place] [address] Platelet Estimate Normal Normal Normal [facility] Comment on above: Performed By: #### S CAN CBC, CMP, HS TROP #### [facility] [address] Platelet mean volume (Bld) [Entitic vol] 7.9 fL Normal 6.6-10.1 [facility] Comment on above: Performed By: #### S CAN CBC, CMP, HS TROP #### [facility] [address] Platelet Morphology Normal Normal Normal [facility] Comment on above: Result Comment: PERF ORMED BY: [place] [address] PATHOLOGIST [employer] JANIYA SERRANO M.D. Performed By: #### S CAN CBC, CMP, HS TROP #### [address] Platelets (Bld) [#/Vol] 347 10*3/uL Normal 150-450 [facility] Comment on above: Performed By: #### S CAN CBC, CMP, HS TROP #### [address] RBC (Bld) [#/Vol] 5.36 10*6/uL Normal 3.90-5.60 [facility] Comment on above: Performed By: #### S CAN CBC, CMP, HS TROP #### [address] WBC (Bld) [#/Vol] 14.0 10*3/uL High 4.1-10.5 [facility] Comment on above: Performed By: #### S CAN CBC, CMP, HS TROP #### [facility] [address] [place] [address] Serum or plasma anion gap de terminationOrdered By: Andrew Balbuena on 11-17-2022 Anion gap [Moles/Vol] 9.9 mmol/L 6.0-15.0 [facility] Serum or plasma calcium eva urement (mass/volume)Ordered By: Andrew Balbuena on 11-17-2022 Calcium [Mass/Vol] 8.8 mg/dL 8.2-10.2 [facility] Serum or plasma chloride caleb surement (moles/volume)Ordered By: Andrew Balbuena on 11-17-2022 Chloride [Moles/Vol] 97 mmol/L 95-114 [facility] Serum or plasma glucose eva urement (mass/volume)Ordered By: Andrew Balbuena on 11-17-2022 Glucose [Mass/Vol] 262 mg/dL 70-100 [facility] Comment on above: ADA recommended refe rence rangeRandom Glucose Reference Range is dependent on time and content of last meal. Glucose of more than 200 mg/dL in a nonstressed, ambulatory subject supports the diagnosis of Diabetes Mellitus. Serum or plasma high density lipoprotein (HDL) cholesterol measurementOrdered By: Wendy Camp on 11-17-2022 Cholesterol in HDL [Mass/Vol] 26 mg/dL 29-71 [facility] Comment on above: HDL CHOL ATP-III CLA SSIFICATION Cardiovascular RiskHDL > or equal to 60 mg/dL LOWHDL < 40 mg/dL HIGH Serum or plasma potassium me asurement (moles/volume)Ordered By: Andrew Balbuena on 11-17-2022 Potassium [Moles/Vol] 4.0 mmol/L 3.5-5.1 [facility] Serum or plasma sodium measu rement (moles/volume)Ordered By: Andrew Balbuena on 11-17-2022 Sodium [Moles/Vol] 130 mmol/L 136-146 [facility] Serum or plasma total carbon dioxide measurement (moles/volume)Ordered By: Andrew Balbuena on 11-17-2022 CO2 [Moles/Vol] 27.1 mmol/L 22.0-30.0 [facility] Serum or plasma total choles terol/high density lipoprotein (HDL) cholesterol mass ratOrdered By: Wendy Camp on 11-17-2022 Cholesterol.total/Choles terol in HDL [Mass ratio] 4.1 {ratio} <5.0 [facility] Serum or plasma urea nitroge n measurement (mass/volume)Ordered By: Andrew Balbuena on 11-17-2022 Urea nitrogen [Mass/Vol] 14 mg/dL 9- [facility] Triglyceride [Mass/volume] i n Serum or PlasmaOrdered By: Wendy Camp on 11-17-2022 Triglyceride [Mass/Vol] 59 mg/dL 35-149 [facility] Comment on above: TRIG ATP III CLASSIF ICATIONTRIG less than 150 mg/dL NormalTRIG 150-199 mg/dL Borderline highTRIG 200-500 mg/dL High TRIG greater than 500 mg/dL Very highStandard traceable to the Center for Disease Conrtrol and Prevention (CDC) test method. WBC Auto (Bld) [#/Vol]Ordere d By: Andrew Balbuena on 11-17-2022 WBC (Bld) [#/Vol] 14.0 10*3/uL 4.1-10.5 [facility] Body fluid albumin measureme nt (mass/volume)Ordered By: Andrew Balbuena on 11-16-2022 Albumin (Body fld) [Mass/Vol] 3.3 g/dL 3.2-5.5 [facility] Comprehensive Metabolic Pane юлия 11-16-2022 Albumin [Mass/Vol] 3.3 g/dL Normal 3.2-5.5 [facility] Comment on above: Performed By: #### S CAN CBC, CMP, HS TROP #### [facility] [address] [place] [address] [place] Albumin/Globulin [Mass ratio] 0.9 {ratio} Normal [facility] Comment on above: Performed By: #### S CAN CBC, CMP, HS TROP #### [facility] [address] [place] [address] [place] ALP [Catalytic activity/Vol] 70 U/L Normal 32-92 [facility] Comment on above: Performed By: #### S CAN CBC, CMP, HS TROP #### [facility] [address] [place] [address] [place] ALT [Catalytic activity/Vol] 34 U/L Normal 10-60 [facility] Comment on above: Performed By: #### S CAN CBC, CMP, HS TROP #### [facility] [address] [place] [address] [place] Anion gap [Moles/Vol] 11.5 mmol/L Normal 6.0-15.0 [facility] Comment on above: Performed By: #### S CAN CBC, CMP, HS TROP #### [facility] [address] [place] [address] [place] AST [Catalytic activity/Vol] 78 U/L High 10-42 [facility] Comment on above: Performed By: #### S CAN CBC, CMP, HS TROP #### [facility] [address] [place] [address] [place] Bilirubin [Mass/Vol] 2.4 mg/dL High 0.3-1.2 [facility] Comment on above: Result Comment: Samp les from patients who have taken Naproxen have shown spurious elevation in Total Bilirubin levels. A metabolite of Naproxen, O-desmethylnaproxen, has been shown to interfere with the Jendrassik-Grof method for measuring Total Bilirubin. Performed By: #### S CAN CBC, CMP, HS TROP #### [facility] [address] [place] [address] [place] Calcium [Mass/Vol] 8.8 mg/dL Normal 8.2-10.2 [facility] Comment on above: Performed By: #### S CAN CBC, CMP, HS TROP #### [facility] [address] [place] [id number] [place] Chloride [Moles/Vol] 97 mmol/L Normal 95-114 [facility] Comment on above: Performed By: #### S CAN CBC, CMP, HS TROP #### [facility] [address] [place] [id number] [place] CO2 [Moles/Vol] 24.0 mmol/L Normal 22.0-30.0 [facility] Comment on above: Performed By: #### S CAN CBC, CMP, HS TROP #### [facility] [address] [place] [id number] [place] Creatinine [Mass/Vol] 0.84 mg/dL Normal 0.64-1.27 [facility] Comment on above: Performed By: #### S CAN CBC, CMP, HS TROP #### [facility] [address] Creatinine Clr Calc Pharmacy 133.78 [facility] Comment on above: Result Comment: PERF ORMED BY: [place] [address] PATHOLOGIST [employer] JANIYA SERRANO M.D. Performed By: #### S CAN CBC, CMP, HS TROP #### [facility] [address] Estimated GFR ( Consuelo > 60 [facility] Comment on above: Result Comment: GFR estimated reference range: According to KDOQI guidelines, <60 ml/min/1.73m2 is sufficient to diagnose a patient with chronic kidney disease. Performed By: #### S CAN CBC, CMP, HS TROP #### [facility] [address] [place] [address] Estimated GFR (Non- Am > 60 [facility] Comment on above: Performed By: #### S CAN CBC, CMP, HS TROP #### [facility] [address] [place] [address] Globulin (S) [Mass/Vol] 3.8 g/dL Normal [facility] Comment on above: Performed By: #### S CAN CBC, CMP, HS TROP #### [facility] [address] [place] [address] Glucose [Mass/Vol] 231 mg/dL High 70-100 [facility] Comment on above: Result Comment: [place] Glucose Reference Range is dependent on time and content of last meal. Glucose of more than 200 mg/dL in a nonstressed, ambulatory subject supports the diagnosis of Diabetes Mellitus. ADA recommended reference range Performed By: #### S CAN CBC, CMP, HS TROP #### [facility] [address] [place] [address] Potassium [Moles/Vol] 3.5 mmol/L Normal 3.5-5.1 [facility] Comment on above: Performed By: #### S CAN CBC, CMP, HS TROP #### [facility] [address] [place] [address] [place] Protein [Mass/Vol] 7.1 g/dL Normal 6.1-7.9 [facility] Comment on above: Performed By: #### S CAN CBC, CMP, HS TROP #### [facility] [address] [place] [address] [place] Sodium [Moles/Vol] 129 mmol/L Low 136-146 [facility] Comment on above: Performed By: #### S CAN CBC, CMP, HS TROP #### [facility] [address] [place] [address] [facility] Urea nitrogen [Mass/Vol] 10 mg/dL Normal 06-27 [facility] Comment on above: Performed By: #### S CAN CBC, CMP, HS TROP #### [facility] [address] [place] [id number] [facility] ECG 12 lead ECGon 11-16-2022 ECG 12 lead ECG [facility] [place] [address] [place] [address] Electrocardiograph Report Signed Patient: Carson Mendoza MR#: [id number] : 1965 Acct:[id number] Age/Sex: 57 / M ADM Date: 11/15/22 Loc: Room: [address] [place] [address] Type: ADM IN Attending Dr: Andrew Balbuena MD Ordering Provider: Andrew Balbuena MD Date of Service: 11/16/2209/26/500 ECG/ECG 12 lead ECG: Post Angioplasty Procedure in AM Copies to: Test Reason : Blood Pressure : / mmHG Vent. Rate : 099 BPM Atrial Rate : 099 BPM P-R Int : 174 ms QRS Dur : 118 ms QT Int : 398 ms P-R-T Axes : 052 -73 080 degrees QTc Int : 510 ms Normal sinus rhythm Incomplete right bundle branch block Left anterior fascicular block Cannot rule out Anteroseptal infarct , age undetermined Prolonged QT Abnormal ECG No previous ECGs available Confirmed by DOMI KELLEY, WENDY ([facility]) on 11/16/2022 11:15:53 AM Referred By: Andrew Tann Electronically Signed By:WENDY CAMP MD Transcribed By: MUS Signed By Wendy Camp MD 0 11/16/22 1115 Normal [facility] Globulin Calc (S) [Mass/Vol] Ordered By: Andrew Balbuena on 11-16-2022 Globulin (S) [Mass/Vol] 3.8 g/dL [facility] Polychromasia [Presence] in Blood by Light microscopyOrdered By: Andrew Balbuena on 11-16-2022 Polychromasia LM Ql (Bld) Slight [facility] Protein [Mass/volume] in Ser um or PlasmaOrdered By: Andrew Balbuena on 11-16-2022 Protein [Mass/Vol] 7.1 g/dL 6.1-7.9 [facility] Scan and CBCon 11-16-2022 Basophils (Bld) [#/Vol] 0.1 10*3/uL Normal 0.0-0.2 [facility] Comment on above: Performed By: #### S CAN CBC, CMP, HS TROP #### [facility] [address] [place] [address] [place] Basophils/100 WBC (Bld) 0.5 % Normal . [facility] Comment on above: Performed By: #### S CAN CBC, CMP, HS TROP #### [facility] [address] [place] [address] [place] Eosinophils (Bld) [#/Vol] 0.1 10*3/uL Normal 0.0-0.45 [facility] Comment on above: Performed By: #### S CAN CBC, CMP, HS TROP #### [facility] [address] [place] [id number] [place] Eosinophils/100 WBC (Bld) 0.6 % Normal . [facility] Comment on above: Performed By: #### S CAN CBC, CMP, HS TROP #### [facility] [address] [place] [address] [place] Erythrocyte distribution width (RBC) [Ratio] 14.3 % Normal 12.0-14.8 [facility] Comment on above: Performed By: #### S CAN CBC, CMP, HS TROP #### [facility] [address] Hematocrit (Bld) [Volume fraction] 41.9 % Normal 38.8-50.0 [facility] Comment on above: Performed By: #### S CAN CBC, CMP, HS TROP #### [facility] [address] Hemoglobin (Bld) [Mass/Vol] 14.7 g/dL Normal 13.0-17.0 [facility] Comment on above: Performed By: #### S CAN CBC, CMP, HS TROP #### [facility] [address] Lymphocytes (Bld) [#/Vol] 3.4 10*3/uL Normal 1.00-4.8 [facility] Comment on above: Performed By: #### S CAN CBC, CMP, HS TROP #### [facility] [address] [place] [address] Lymphocytes/100 WBC (Bld) 20.4 % Normal . [facility] Comment on above: Performed By: #### S CAN CBC, CMP, HS TROP #### [facility] [address] MCH (RBC) [Entitic mass] 27.9 pg Normal 27.5-35.2 [facility] Comment on above: Performed By: #### S CAN CBC, CMP, HS TROP #### [facility] [address] [place] [address] MCV (RBC) [Entitic vol] 79.4 fL Low 83.5-101 [facility] Comment on above: Performed By: #### S CAN CBC, CMP, HS TROP #### [facility] [address] Mean Corpuscular HGB Conc 35.1 g/dL Normal 32.5-35.6 [facility] Comment on above: Performed By: #### S CAN CBC, CMP, HS TROP #### [facility] [address] [place] [address] [place] Monocytes (Bld) [#/Vol] 1.7 10*3/uL High 0.0-0.8 [facility] Comment on above: Performed By: #### S CAN CBC, CMP, HS TROP #### [facility] [address] [place] [address] [place] Monocytes/100 WBC (Bld) 10.5 % Normal . [facility] Comment on above: Performed By: #### S CAN CBC, CMP, HS TROP #### [facility] [address] Neutrophils (Bld) [#/Vol] 11.3 10*3/uL High 1.8-7.7 [facility] Comment on above: Performed By: #### S CAN CBC, CMP, HS TROP #### [facility] [address] [place] [address] Neutrophils/100 WBC (Bld) 68.0 % Normal . [facility] Comment on above: Performed By: #### S CAN CBC, CMP, HS TROP #### [facility] [address] [place] [address] NRBC% 0.5 /100{WBC} Normal 0-0.5 [facility] Comment on above: Performed By: #### S CAN CBC, CMP, HS TROP #### [facility] [address] [place] [address] Platelet Estimate Normal Normal Normal [facility] Comment on above: Performed By: #### S CAN CBC, CMP, HS TROP #### [facility] [address] [place] [address] Platelet mean volume (Bld) [Entitic vol] 7.8 fL Normal 6.6-10.1 [facility] Comment on above: Performed By: #### S CAN CBC, CMP, HS TROP #### [facility] [address] [place] [address] Platelet Morphology Normal Normal Normal [facility] Comment on above: Result Comment: PERF ORMED BY: [place] [address] PATHOLOGIST [employer] JANIYA SERRANO M.D. Performed By: #### S CAN CBC, CMP, HS TROP #### [facility] [address] [place] [address] [place] Platelets (Bld) [#/Vol] 357 10*3/uL Normal 150-450 [facility] Comment on above: Performed By: #### S CAN CBC, CMP, HS TROP #### [facility] [address] Polychromasia Slight Normal [facility] Comment on above: Performed By: #### S CAN CBC, CMP, HS TROP #### [facility] [address] RBC (Bld) [#/Vol] 5.28 10*6/uL Normal 3.90-5.60 [facility] Comment on above: Performed By: #### S CAN CBC, CMP, HS TROP #### [facility] [address] RBC morphology finding Nom (Bld) Normal Normal Normal [facility] Comment on above: Performed By: #### S CAN CBC, CMP, HS TROP #### [facility] [address] WBC (Bld) [#/Vol] 16.6 10*3/uL High 4.1-10.5 [facility] Comment on above: Performed By: #### S CAN CBC, CMP, HS TROP #### [facility] [address] Serum or plasma alanine urias otransferase measurement without P-5'-P (enzymatic activiOrdered By: Andrew Balbuena on 11-16-2022 ALT No additional P-5'-P [Catalytic activity/Vol] 34 U/L 10-60 [facility] Serum or plasma albumin/glob ulin mass ratioOrdered By: Andrew Balbuena on 11-16-2022 Albumin/Globulin [Mass ratio] 0.9 {ratio} [facility] Serum or plasma alkaline yoni sphatase measurement (enzymatic activity/volume)Ordered By: Andrew Balbuena on 11-16-2022 ALP [Catalytic activity/Vol] 70 U/L 32-92 [facility] Serum or plasma aspartate am inotransferase measurement (enzymatic activity/volume)Ordered By: Andrew Balbuena on 11-16-2022 AST [Catalytic activity/Vol] 78 U/L 10-42 [facility] Serum or plasma total biliru bin measurement (mass/volume)Ordered By: Andrew Balbuena on 11-16-2022 Bilirubin [Mass/Vol] 2.4 mg/dL 0.3-1.2 [facility] Comment on above: Samples from patient s who have taken Naproxen have shown spurious elevation in Total Bilirubin levels. A metabolite of Naproxen, O-desmethylnaproxen, has been shown to interfere with the Todik-Lazaro method for measuring Total Bilirubin. Troponin I High Sensitivityo n 11-16-2022 Troponin I High Sensitivity 82463 pg/mL Off scale high 0-20 [facility] Comment on above: Result Comment: Resu lts called at 0512 on 11/16/22 PERFORMED BY: [place] [address] PATHOLOGIST [employer] J[employer]OR JANIYA SERRANO M.D. Performed By: #### S CAN CBC, CMP, HS TROP #### [facility] [address] Troponin I.cardiac [Mass/vol ume] in Serum or Plasma by High sensitivity methodOrdered By: Andrew Balbuena on 11-16-2022 Troponin I.cardiac High sensitivity method [Mass/Vol] 73434 pg/mL 0-20 [facility] Comment on above: Results calledat 051 2 on 11/16/22 BNPon 11-15-2022 Natriuretic peptide B (Bld) [Mass/Vol] 2281.0 pg/mL Critically high <=900.0 [facility] Comment on above: Performed By: #### B MARKET PRESIDENT, CMADM, CMP #### [facility] [address] [place], [place] [address] Dr. Martin Mello CARDIAC ANICETO ADMITon 023 CK [Catalytic activity/Vol] 705 U/L Critically high 39-308 [facility] Comment on above: Performed By: #### B MARKET PRESIDENT, CMADM, CMP ####[facility] [address] [place], [place] [address]Bx. Martin Mello CK.MB [Mass/Vol] 33.94 ng/mL Critically high <=3.60 [facility] Comment on above: Performed By: #### B MARKET PRESIDENT, CMADM, CMP ####[facility] [address] [place] [address]DrSharad Mello HSTROP 48208.6 pg/mL Critically high 4.0-76.1 [facility] Comment on above: Result Comment: CUT- OFF POINTS HAVE BEEN ESTABLISHED BASED ON THE FOURTH UNIVERSAL DEFINITIONS OF MYOCARDIAL INFARCTION. THE UPPER REFERENCE LIMIT (URL) OF TROPONIN, DEFINED THE 99TH PERCENTILE OF cTnI DISTRIBUTION IN A REFERENCE POPULATION, HAS BEEN CONFIRMED THE DECISION THRESHOLD FOR [place] DIAGNOSIS. Performed By: #### B MARKET PRESIDENT, CMADM, CMP ####[facility] [address] [place] [address]DrSharad Mello MARKELL 458 ng/mL Critically high 16-96 [facility] Comment on above: Performed By: #### B MARKET PRESIDENT, CMADM, CMP ####[facility] [address] [place] [address]DrSharad Mello CBC AUTO DIFFon 11-15-2022 BASO # 0.1 103/ul Normal 0.0-0.1 [facility] Comment on above: Performed By: #### C BC #### [facility] [address] [place] [address] [address] Martin Mello Basophils/100 WBC (Bld) 0.5 % Normal 0.2-2.0 [facility] Comment on above: Performed By: #### C BC #### [facility] [address] [place] [address] [address] Martin Mello EO # 0.1 103/ul Normal 0.0-0.7 [facility] Comment on above: Performed By: #### C BC #### [facility] [address] [place] [address] [address] Martin Mello Eosinophils/100 WBC (Bld) 0.3 % Critically low 0.9-7.0 [facility] Comment on above: Performed By: #### C BC #### [facility] [address] [place] [address] Dr. Martin Mello Erythrocyte distribution width (RBC) [Ratio] 13.3 % Normal 11.0-15.0 [facility] Comment on above: Performed By: #### C BC #### [facility] [address] [place] [address] Dr. Martin Mello Hematocrit (Bld) [Volume fraction] 44.1 % Normal 42.0-54.0 [facility] Comment on above: Performed By: #### C BC #### [facility] [address] [place] [address] Dr. Martin Mello Hemoglobin (Bld) [Mass/Vol] 16.0 g/dL Normal 14.0-18.0 [facility] Comment on above: Performed By: #### C BC #### [facility] [address] [place] [address] Dr. Martin Mello IG # 0.11 10e3/ul Critically high 0.00-0.03 [facility] Comment on above: Performed By: #### C BC #### [facility] [address] [place] [address] Dr. Martin Mello IG % 0.7 % Critically high 0.0-0.5 [facility] Comment on above: Performed By: #### C BC #### [facility] [address] [place] [address] Dr. Martin Mello LYMPH # 2.1 103/ul Normal 1.2-3.8 [facility] Comment on above: Performed By: #### C BC #### [facility] [address] [place] [address] Dr. Martin Mello Lymphocytes/100 WBC (Bld) 12.4 % Critically low 20.5-60.0 [facility] Comment on above: Performed By: #### C BC #### [facility] [address] [place] [address] Dr. Martin Mello MANUAL DIFF REQ NO Normal [facility] Comment on above: Performed By: #### C BC #### [facility] [address] [place] [address] Dr. Martin Mello MCH (RBC) [Entitic mass] 28.1 pg Normal 25.9-34.0 [facility] Comment on above: Performed By: #### C BC #### [facility] [address] [place] [address] [address] Martin Mello MCHC (RBC) [Mass/Vol] 36.3 g/dL Critically high 29.9-35.2 [facility] Comment on above: Performed By: #### C BC #### [facility] [address] [place] [address] Dr. Martin Mello MCV (RBC) [Entitic vol] 77.5 fL Critically low 80.0-94. 0 [facility] Comment on above: Performed By: #### C BC #### [facility] [address] [place] [address] Dr. Martin Mello MONO # 1.0 103/ul Critically high 0.3-0.8 [facility] Comment on above: Performed By: #### C BC #### [facility] [address] [place] [address] Dr. Martin Mello Monocytes/100 WBC (Bld) 6.0 % Normal 1.7-12.0 [facility] Comment on above: Performed By: #### C BC #### [facility] [address] [place] [address] Dr. Martin Mello NEUT # 13.3 103/ul Critically high 1.4-6.[address] [facility] Comment on above: Performed By: #### C BC #### [facility] [address] [place] [address] Dr. Martin Mello Neutrophils/100 WBC (Bld) 80.1 % Critically high 43.0-75.0 [facility] Comment on above: Performed By: #### C BC #### [facility] [address] [place] [address] Dr. Martin Mello Platelet mean volume (Bld) [Entitic vol] 9.3 fL Critically low 9.5-13.5 [facility] Comment on above: Performed By: #### C BC #### [facility] [address] [place] [address] [address] Martin Mello PLT 375 103/ul Normal 150-450 [facility] Comment on above: Performed By: #### C BC #### [facility] [address] [place] [address] Dr. Martin Mello RBC 5.69 106/ul Normal 4.70-6.10 [facility] Comment on above: Performed By: #### C BC #### [facility] [address] [place] [address] [address] Martin Mello WBC 16.6 103/ul Critically high 4.0-11.[address] [facility] Comment on above: Performed By: #### C BC #### [facility] [address] [place] [address] Dr. Martin Mello Covid-19 PCR (CVDTB)on 11-05 SARS-CoV-2 (COVID-19) RNA PRIYANKA+probe Ql (Unsp spec) Not detected Normal NOT DETECTED [facility] Comment on above: Result Comment: When diagnostic testing is negative, the possibility of a false negative should be considered in the context of a patient's recent exposures and the presence of clinical signs and symptoms consistent with SARS-CoV-2. This test is not yet approved or cleared by the [place] FDA. When there are no FDA-approved or cleared tests available, and other criteria are met, FDA can make tests available under an emergency access mechanism called an Emergency Use Authorization (EUA). The EUA for this test is supported by the [place] of Health and Human Service's declaration that circumstances exist to justify the emergency use of in vitro diagnostics for the detection and/or diagnosis of the virus that causes COVID-19. This EUA will remain in effect for the duration of the COVID-19 declaration justifying emergency of IVDs, unless it is terminated or revoked by the FDA (after which the test may no longer be used). Performed By: #### C VDTBH #### [facility] [address] [place] [address] Dr. Martin Mello D-DIMERon 11-15-2022 D-DIMER 0.33 mg/L FEU Normal <=0.59 [facility] Comment on above: Performed By: #### D DIM #### [facility] [address] [place] [address] [address] Martin Mello D-DIMER COMMENTS SEE BELOW Normal [facility] Comment on above: Result Comment: Incr eases in D-Dimer concentration observed with thromboembolic events can be variable due to localization, size, and age of the thrombus. Therefore, a thromboembolic event cannot be diagnosed with certainty on the basis of the reference range. D-Dimers may also be elevated for a variety of disorders including: advanced age, , coronary disease, cancer, liver disease, infection, inflammation, hematoma, DIC, trauma, post-surgery, diabetes, thrombolytic or anticoagulant therapy, stress, and generalized hospitalization. Performed By: #### D DIM #### [facility] [address] [place] [address] [address] Martin Mello ECG 12 lead ECGon 11-15-2022 ECG 12 lead ECG [facility] [address] Electrocardiograph Report Signed Patient: Carson Mendoza MR#: [id number] : 1965 Acct:[id number] Age/Sex: 57 / M ADM Date: 11/15/22 Loc: Room: [address] [place] [address] Type: ADM IN Attending Dr: Andrew Balbuena MD Ordering Provider: Andrew Balbuena MD Date of Service: 11/15/2208/27/1017 ECG/ECG 12 lead ECG: Post Angioplasty Procedure Copies to: Test Reason : Blood Pressure : / mmHG Vent. Rate : 103 BPM Atrial Rate : 103 BPM P-R Int : 184 ms QRS Dur : 120 ms QT Int : 382 ms P-R-T Axes : 059 -66 084 degrees QTc Int : 500 ms Sinus tachycardia Left anterior fascicular block Anteroseptal infarct Abnormal ECG No previous ECGs available Confirmed by WENDY CAMP MD ([id number]) on 11/16/2022 6:58:05 AM Referred By: Andrew Balbuena Electronically Signed By:WENDY CAMP MD Transcribed By: MUS Signed By Wendy Camp MD 0 11/16/22 0658 Normal [facility] PROF 14(COMP METB)on 023 Albumin [Mass/Vol] 3.5 g/dL Normal 3.4-5.0 [facility] Comment on above: Performed By: #### B MARKET PRESIDENT, CMADM, CMP #### [facility] [address] [place] [address] [address] Martin Mello Albumin/Globulin [Mass ratio] 0.8 {ratio} Normal [facility] Comment on above: Performed By: #### B MARKET PRESIDENT, CMADM, CMP #### [facility] [address] [place] [address] [address] Martin Mello ALP [Catalytic activity/Vol] 94 U/L Normal 46-116 [facility] Comment on above: Performed By: #### B MARKET PRESIDENT, CMADM, CMP #### [facility] [address] [place] [address] Dr. Martin Mello ALT [Catalytic activity/Vol] 27 U/L Normal 16-63 [facility] Comment on above: Performed By: #### B MARKET PRESIDENT, CMADM, CMP #### [facility] [address] [place] [address] [address] Martin Mello Anion gap [Moles/Vol] 16.0 mmol/L Normal [facility] Comment on above: Performed By: #### B MARKET PRESIDENT, CMADM, CMP #### [facility] [address] [place] [address] [address] Martin Mello AST [Catalytic activity/Vol] 96 U/L Critically high 15-37 [facility] Comment on above: Performed By: #### B MARKET PRESIDENT, CMADM, CMP #### [facility] [address] [place] [address] [address] Martin Mello Bilirubin [Mass/Vol] 1.2 mg/dL Critically high 0.2-1.0 [facility] Comment on above: Performed By: #### B MARKET PRESIDENT, CMADM, CMP #### [facility] [address] [place] [address] [address] Martin Mello Calcium [Mass/Vol] 9.2 mg/dL Normal 8.5-10.1 [facility] Comment on above: Performed By: #### B MARKET PRESIDENT, CMADM, CMP #### [facility] [address] [place] [address] [address] Martin Mello Chloride [Moles/Vol] 97 mmol/L Critically low 98-107 [facility] Comment on above: Performed By: #### B MARKET PRESIDENT, CMADM, CMP #### [facility] [address] [place] [address] [address] Martin Mello CO2 [Moles/Vol] 25.6 mmol/L Normal 21.0-32.0 [facility] Comment on above: Performed By: #### B MARKET PRESIDENT, CMADM, CMP #### [facility] [address] [place] [address] Dr. Martin Mello Creatinine [Mass/Vol] 0.80 mg/dL Normal 0.70-1.30 [facility] Comment on above: Performed By: #### B MARKET PRESIDENT, CMADM, CMP #### [facility] [address] [place] [address] Dr. Martin Mello EGFR-AF SWAZI >60 Normal >=60 [facility] Comment on above: Performed By: #### B MARKET PRESIDENT, CMADM, CMP #### [facility] [address] [place] [address] Dr. Martin Mello EGFR-NON AF SWAZI >60 Normal >=60 [facility] Comment on above: Performed By: #### B MARKET PRESIDENT, CMADM, CMP #### [facility] [address] [place] [address] Dr. Martin Mello Globulin (S) [Mass/Vol] 4.6 g/dL Normal [facility] Comment on above: Performed By: #### B MARKET PRESIDENT, CMADM, CMP #### [facility] [address] [place] [address] Dr. Martin Mello Glucose [Mass/Vol] 248 mg/dL Critically high 74-106 [facility] Comment on above: Performed By: #### B MARKET PRESIDENT, CMADM, CMP #### [facility] [address] [place] [address] Dr. Martin Mello Potassium [Moles/Vol] 3.6 mmol/L Normal 3.5-5.1 [facility] Comment on above: Performed By: #### B MARKET PRESIDENT, NELY, CMP #### [facility] [address] [place] [address] Dr. Martin Mello Protein [Mass/Vol] 8.1 g/dL Normal 6.4-8.2 [facility] Comment on above: Performed By: #### B MARKET PRESIDENT, NELY, CMP #### [facility] [address] [place] [address] [address] Martin Mello Sodium [Moles/Vol] 135 mmol/L Critically low 136-145 [facility] Comment on above: Performed By: #### B MARKET PRESIDENT, NELY, CMP #### [facility] [address] [place] [address] Dr. Martin Mello Urea nitrogen [Mass/Vol] 8.0 mg/dL Normal 7.0-18.0 [facility] Comment on above: Performed By: #### B MARKET PRESIDENT, NELY, CMP #### [facility] [address] [place] [address] Dr. Martin Mello Urea nitrogen/Creatinine [Mass ratio] 10.0 mg/mg Normal [facility] Comment on above: Performed By: #### B MARKET PRESIDENT, NELY, CMP #### [facility] [address] [place] [address] Dr. Martin Mello PROTIMEon 11-15-2022 INR Coag (PPP) [Relative time] 1.01 {INR} Normal [facility] Comment on above: Performed By: #### P TT, PT #### [facility] [address] [place] [address] Dr. Martin Mello INR GUIDELINES SEE BELOW Normal [facility] Comment on above: Result Comment: DANELLE RED INR: 2.0 - 3.0 CONDITIONS NOT LISTED BELOW 2.5 - 3.5 FOR PROSTHETIC HEART VALVE REPLACEMENT 2.5 - 3.5 RECURRENT THROMBOSIS Performed By: #### P TT, PT #### [facility] Laboratory [address] [place] [address] Dr. Martin Mello PT Coag (PPP) [Time] 10.7 s Normal 9.0-11.6 [facility] Comment on above: Performed By: #### P TT, PT #### [facility] [address], [place] [address] Dr. Martin Mello PTTon 11-15-2022 aPTT Coag (Bld) [Time] 29.4 s Normal 22.3-36.2 Th [facility] Comment on above: Performed By: #### P TT, PT #### [facility] [address], [place] [address] Dr. Martin Mello Troponin I High Sensitivityo n 11-15-2022 Troponin I High Sensitivity 91784 pg/mL Off scale high 0-20 [facility] Comment on above: Result Comment: Critical value result called at 2039 on 11/15/22 PERFORMED BY: [place] [address] PATHOLOGIST CORONER'S JUROR JANIYA SERRANO M.D. Performed By: #### H S TROP #### [facility] [address] [place] [address] Troponin I High Sensitivity 72712 pg/mL Off scale high 0-20 [facility] Comment on above: Result Comment: Critical value result called at 1726 on 11/15/22 PERFORMED BY: [place] [address] PATHOLOGIST CORONER'S JUROR JANIYA SERRANO M.D. Performed By: #### H S TROP #### [facility] [address] [place] [address] Troponin I High Sensitivity 421572 pg/mL Off scale high 0-20 [facility] Comment on above: Result Comment: Critical value result called at 1527 on 11/15/22 PERFORMED BY: [place] [address] PATHOLOGIST CORONER'S JUROR JANIYA SERRANO M.D. Performed By: #### S CAN CBC, CMP, HS TROP #### [facility] [address] [place] [address] [place] Troponin I High Sensitivity 789575 pg/mL Off scale high 0-20 [facility] Comment on above: Result Comment: Resu lts called at 1303 on 11/15/22 PERFORMED BY: [place] [address] PATHOLOGIST CORONER'S JUROR JANIYA SERRANO M.D. Performed By: #### H S TROP #### [address] XR CHEST 1 Von 11-15-2022 XR CHEST 1 V EXAMINATION: XR CHES T 1 V HISTORY: CHEST PAIN, UNSPECIFIED COMPARISON: No relevant comparison available. FINDINGS: LUNGS: Mild haziness throughout the lungs with diffuse stranding within lung bases. VASCULATURE: No increased pulmonary vasculature. PLEURA: No pneumothorax, effusion, or pleural thickening. CARDIAC: No cardiomegaly or cardiac silhouette abnormality. MEDIASTINUM: No visible mass or adenopathy. BONES: No fracture or visible bone lesion. OTHER: Negative. IMPRESSION: 1. Bilateral moderate pulmonary edema versus multifocal pneumonia. Electronically authenticated by: MELIDA SHEPHERD Date: 2022-11-15 07:48 Normal [facility] Vital Signs Date Time Vital Sign Value Performing Clinician Facility 05-25-2024 10:12040 Body height 182.9 cm Shyam Haile DO Work Phone: [facility] 05-25-2024 10:12-040 Body mass index (BMI) [Ratio] 32.36 kg/m2 Shyam Haile DO Work Phone: [facility] 05-25-2024 10:12 Body weight 108.23 kg Shyam Haile DO Work Phone: [facility] 05-25-2024 10:12-040 Diastolic blood pressure 70 mm[Hg] Shyam Haile DO Work Phone: [facility] 05-25-2024 10:12-040 Heart rate 72 /min Shyam Haile DO Work Phone: [facility] 05-25-2024 10:12-040 Systolic blood pressure 120 mm[Hg] Shyam Haile DO Work Phone: [facility] 11-19-2023 11:41-0500 Body height 182.9 cm Shyam Haile DO Work Phone: [facility] 11-19-2023 11:41-0500 Body mass index (BMI) [Ratio] 35.26 kg/m2 Shyam Haile DO Work Phone: [facility] 11-19-2023 11:41-0500 Body weight 117.94 kg Shyam Haile DO Work Phone: [facility] 11-19-2023 11:41-0500 Diastolic blood pressure 66 mm[Hg] Shyam Haile DO Work Phone: [facility] 11-19-2023 11:41-0500 Heart rate 82 /min Shyam Haile DO Work Phone: [facility] 11-19-2023 11:41-0500 Systolic blood pressure 112 mm[Hg] Shyam Haile DO Work Phone: [facility] 05-04-2023 09:14-0400 Body height 180.34 cm Chelsea S Ki Work Phone: [facility] DO Work Phone: 05-04-2023 09:14-0400 Body mass index (BMI) [Ratio] 35.57 kg/m2 Chelsea S Ki Work Phone: [facility] 250 DO Work Phone: 05-04-2023 09:14-0400 Body surface area Derived from formula 2.34 m2 Chelsea S Ki Work Phone: [facility] [facility] DO Work Phone: 05-04-2023 09:14-0400 Body weight 115.67 kg Chelsea S Ki Work Phone: [facility] DO Work Phone: 05-04-2023 09:14-0400 Diastolic blood pressure 86 mm[Hg] Chelsea S Ki Work Phone: [facility] DO Work Phone: 05-04-2023 09:14-0400 Heart rate 94 /min Chelsea S Ki Work Phone: [facility] DO Work Phone: 05-04-2023 09:14-0400 Systolic blood pressure 114 mm[Hg] Chelsea S Ki Work Phone: [facility] DO Work Phone: 03-18-2023 09:28-0400 Body height 180.34 cm Chelsea S Ki Work Phone: [facility] DO Work Phone: 03-18-2023 09:28-0400 Body mass index (BMI) [Ratio] 35.01 kg/m2 Chelsea S Ki Work Phone: [facility] DO Work Phone: 03-18-2023 09:28-0400 Body surface area Derived from formula 2.32 m2 Chelsea S Ki Work Phone: [facility] DO Work Phone: 03-18-2023 09:28-0400 Body weight 113.85 kg Chelsea S Ki Work Phone: [facility] DO Work Phone: 03-18-2023 09:28-0400 Diastolic blood pressure 68 mm[Hg] Chelsea S Ki Work Phone: [facility] [facility] DO Work Phone: 03-18-2023 09:28-0400 Heart rate 100 /min Chelsea S Ki Work Phone: [facility] DO Work Phone: 03-18-2023 09:28-0400 Systolic blood pressure 112 mm[Hg] Chelsea S Ki Work Phone: [facility] DO Work Phone: 11-26-2022 09:56-0500 Body height 180.34 cm Chelsea Presleymer Work Phone: [facility] 250 DO Work Phone: 11-26-2022 09:56-0500 Body mass index (BMI) [Ratio] 35.01 kg/m2 Chelsea Presleymer Work Phone: [facility] 250 DO Work Phone: 11-26-2022 09:56-0500 Body surface area Derived from formula 2.32 m2 Chelsea Presleymer Work Phone: [facility] [facility] DO Work Phone: 11-26-2022 09:56-0500 Body weight 113.85 kg Chelsea Cheatham Work Phone: [facility] DO Work Phone: 11-26-2022 09:56-0500 Diastolic blood pressure 70 mm[Hg] Chelsea Presleymer Work Phone: [facility] [facility] DO Work Phone: 11-26-2022 09:56-0500 Heart rate 68 /min Chelsea Presleymer Work Phone: [facility] [facility] DO Work Phone: 11-26-2022 09:56-0500 Systolic blood pressure 112 mm[Hg] Chelsea Mckeon Ki Work Phone: [facility] DO Work Phone: 11-17-2022 08:00-0500 Body temperature 98.6 [degF] MD Lydia Wheat Work Phone: [facility] 11-17-2022 08:00-0500 Diastolic blood pressure 72 mm[Hg] MD Lydia Wheat Work Phone: [facility] 11-17-2022 08:00-0500 Heart rate 104 /min MD Lydia Wheat Work Phone: [facility] 11-17-2022 08:00-0500 Respiratory rate 22 /min MD Lydia Wheat Work Phone: [facility] 11-17-2022 08:00-0500 SaO2% (BldA) [Mass fraction] 95 % MD Lydia Wheat Work Phone: [facility] 11-17-2022 08:00-0500 Systolic blood pressure 121 mm[Hg] MD Lydia Wheat Work Phone: [facility] 11-17-2022 06:00-0500 Body weight 126.4 kg MD Lydia Wheat Work Phone: [facility] 11-16-2022 00:00-0500 45 1 Chelsea Cheatham Work Phone: [facility] [facility] DO Work Phone: Comment on above: [id number] 11-15-2022 12:00-0500 Body height 182.88 cm MD Lydia Wheat Work Phone: [facility] Encounters Encounter Date Encounter Type Care Provider Facility Start: 05-25-2024 End: 05-25-2024 ambulatory [facility] Ambulatory Start: 05-25-2024 End: 05-25-2024 Office outpatient visit 25 minutes Shyam Haile DO Work Phone: [facility] Comment on above: Coronary artery dise ase involving lytton coronary 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; ST elevation myocardial infarction (STEMI) of anterolateral wall (Multi); H/O percutaneous transluminal coronary angioplasty; Mixed hyperlipidemia; Essential hypertension; BMI 32.0-32.9,adult; Chewing tobacco nicotine dependence without complication Start: 11-19-2023 End: 11-19-2023 Office outpatient visit 15 minutes Shyam Haile DO Work Phone: [facility] Comment on above: 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 Luis Vega Facility: Start: 05-04-2023 Office outpatient vi sit 15 minutes Chelsea S Ki Work Phone: [facility] [facility] DO Work Phone: Start: 05-04-2023 Patient encounter procedure Chelsea S Ki Work Phone: [facility] [facility] DO Work Phone: Start: 04-30-2023 Chart Update Chelsea S Crame r Work Phone: [facility] [facility] DO Work Phone: Start: 04-29-2023 ambulatory Ms. Luis Vega Facility:[id number] Start: 03-18-2023 ambulatory Ms. Luis Vega Facility: Start: 03-18-2023 Office outpatient vi sit 25 minutes Chelsea S Ki Work Phone: [facility] DO Work Phone: Start: 02-17-[address] Shyam Haile Facility: Start: 12-25-[address] DOCTOR YEN Facility :H1 Start: 12-23-2022 ambulatory Ms. Luis Vega Facility: Start: 12-15-2022 Chart Update Chelsea S Crame r Work Phone: [facility] [facility] DO Work Phone: Start: 12-12-2022 ambulatory Ms. Luis Vega Facility:[id number] Start: 12-10-2022 End: 12-11-2022 ambulatory CHELSEA CHEATHAM Facility:H1 Start: 11-28-2022 End: 11-29-[address] DOCTOR YEN Facility:H1 Start: 11-26-2022 ambulatory Ms. Luis Vega Facility: Start: 11-17-[address] Wendy Camp Facility:90 Start: 11-16-[address] Wendy Camp Facility:[id number] Start: 11-15-2022 End: 11-17-2022 Evaluation and management of inpatient Lydia Wheat Facility:[facility] Start: 11-15-2022 End: 11-17-2022 Evaluation and management of inpatient MD Lydia Wheat Work Phone: [facility] Work Phone: Start: 11-15-2022 End: 11-15-2022 ambulatory MADISON CASTRO . Facility:H1 Procedures Date Procedure Procedure Detail Performing Clinician Start: 11-19-2023 Lipid panel SHYAM FAIRCHILD Start: 11-19-2023 History of percutane ous transluminal coronary angioplasty H/O percutaneous transluminal coronary angioplasty Shyam Haile DO Work Phone: Start: 04-29-2023 Echocardiography Chelsea Cheatham Work Phone: Start: 11-15-2022 CL LHC & COR Angio MD Jessie Wheat Work Phone: Start: 11-15-2022 CL PCI AMI 1st Vesse l LAD SUMMER MD Lydia Wheat Work Phone: Start: 11-15-2022 MD Lydia Wheat Work Phone: Cardiac catheterization Tamie Serrato Work Phone: History of percutane ous transluminal coronary angioplasty H/O percutaneous transluminal coronary angioplasty Shyam Haile DO Work Phone: Operative procedure on knee Chelsea Cheatham Work Phone: NEGATED: Highlighted row has not occurred! Total colonoscopy Chelsea Cheatham Work Phone: Plan of Treatment Date Care Activity Detail Author Start: 05-25-2025 End: 05-25-2025 Patient encounter procedure 05/25/2025 10:00 AM EDT Office Visit [facility] [address] [facility] [address] [place] [id number] Shyam Halie DO [address] [facility] [address] [place] [address] [facility] Start: 06-05-2024 Influenza vaccination Influenza Vacc ine (#1) [facility] Start: 05-25-2024 End: 05-25-2024 Patient encounter procedure 05/25/2024 10:00 AM EDT Office Visit [facility] [address] [facility] [address] [place] [id number] Shyam Haile DO [address] [facility] [address], [facility] [address] [place] [address] [facility] Start: 05-19-2024 End: 11-19-2024 Lipid 1996 panel - Serum or Plasma Lipid Panel Lab Routine Coronary artery disease involving lytton coronary 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 Mixed hyperlipidemia H/O percutaneous transluminal coronary angioplasty Expected: 05/19/2024 (Approximate), Expires: 11/19/2024 [facility] Service Area Work Phone: Comment on above: Expected: 05/19/2024 (Approximate), Expires: 11/19/2024 Start: 11-04-2023 FUV, Provider: Shyam Haile, Status: Pen, Time: 9:50 AM FUV, Provider: Shyam Haile, Status: Pen, Time: 9:50 AM [facility] 250 DO Work Phone: Start: 06-05-2023 COVID-19 Vaccine ( season) COVID-19 Vaccine ( season) [facility] Start: 06-05-2023 Influenza vaccination Influenza Vacc ine (#1) [facility] Start: 05-04-2023 FUV, Provider: Luis Duenas, Status: Pen, Time: 9:00 AM FUV, Provider: Luis Duenas, Status: Pen, Time: 9:00 AM -[facility] [facility] DO Work Phone: Start: 04-22-2023 FUV, Provider: Luis Duenas, Status: Pen, Time: 10:30 AM FUV, Provider: Luis Duenas, Status: Pen, Time: 10:30 AM [facility] [facility] DO Work Phone: Start: 04-17-2023 ECHO, Provider: TORI TIERNEY [facility] 01,[id number], Status: Pen, Time: 8:30 AM ECHO, Provider: [facility] 01,[id number], Status: Pen, Time: 8:30 AM -[facility] DO Work Phone: Start: 02-17-2023 FUV, Provider: Shyam Haile, Status: Pen, Time: 10:00 AM FUV, Provider: Shyam Haile, Status: Pen, Time: 10:00 AM [facility] 250 DO Work Phone: Start: 12-23-2022 FUV, Provider: Luis Duenas, Status: Pen, Time: 1:00 PM FUV, Provider: uLis Duenas, Status: Pen, Time: 1:00 PM -[facility] [facility] DO Work Phone: Start: 11-20-2022 Blood chemistry [facility] Start: 11-20-2022 [facility] Start: 11-19-2022 Blood chemistry [facility] Start: 11-19-2022 [facility] Start: 11-18-2022 Blood chemistry [facility] Start: 11-18-2022 [facility] Start: 11-17-2022 [facility] Start: 11-15-2022 Referral to cardiac rehabilitation program [facility] Start: 11-15-2022 [facility] Start: 11-15-2022 Hospital admission [facility] Start: 2015 Zoster Vaccines (1 of 2) Zoster Vacc doni (1 of 2) [facility] Start: 1987 DTaP/Tdap/Td Vaccine s (1 - Tdap) DTaP/Tdap/Td Vaccines (1 - Tdap) [facility] Start: 1984 Hepatitis B Vaccines (1 of 3 - 19+ 3-dose series) Hepatitis B Vaccines (1 of 3 - 19+ 3-dose series) [facility] Start: 1983 Diabetes mellitus screening Diabetes Screening [facility] Start: 1983 Hepatitis C screening Hepatitis C Sc reening [facility] Start: 1971 Pneumococcal Vaccine : Pediatrics (0 to 5 Years) and At-Risk Patients (6 to 64 Years) (1 - PCV) Pneumococcal Vaccine: Pediatrics (0 to 5 Years) and At-Risk Patients (6 to 64 Years) (1 - PCV) [facility] Start: 1971 Pneumococcal Vaccine : Pediatrics (0 to 5 Years) and At-Risk Patients (6 to 64 Years) (1 of 2 - PCV) Pneumococcal Vaccine: Pediatrics (0 to 5 Years) and At-Risk Patients (6 to 64 Years) (1 of 2 - PCV) [facility] Start: 1966 MMR Vaccines (1 of 1 - Standard series) MMR Vaccines (1 of 1 - Standard series) [facility] Start: 04-13-1966 COVID-19 Vaccine (#1) COVID-19 Vacci ne (#1) [facility] Start: 1965 Hepatitis B Vaccines (1 of 3 - 3-dose series) Hepatitis B Vaccines (1 of 3 - 3-dose series) [facility] Start: 1965 HIV screening HIV Screening [facility] Start: 1965 Lipid panel Lipid Panel [facility] Start: 1965 Screening for malign ant neoplasm of colon [facility] Start: 1965 Yearly Adult Physical Yearly Adult P hysical [facility] Patient Education Coronary Angio plasty (DC) Coronary Stenting (DC) Angina (DC) Chest Pain (DC) Drug Eluting Stents [facility] Work Phone: Patient referral [facility] Work Phone: Payers Date Payer Category Payer Self-pay 2020 Unknown 1965 Unknown [id number] 2.16.84 [id number] 1965 Unknown [id number] 2.16.84 [id number] 1965 Unknown [id number] 2.16.84 [id number] 1965 Unknown [id number] 2.16.84 [id number] 1965 Unknown [id number] 2.16.8 [id number] 1965 Unknown [id number] 2.16.8 [id number] 1965 Unknown [id number] 2.16. [id number] 1965 Unknown [id number] 2.16. [id number] 1965 Unknown [id number] 2.16. [id number] 1965 Unknown [id number] 2.16. [id number] 1965 Unknown [id number] 2.16. [id number] 1965 Unknown [id number] 2.16. [id number] 1965 Unknown [id number] 2.16. [id number] 1965 Unknown [id number] 2.16. [id number] 1965 Unknown [id number] 2.16.8 [id number] 1965 Unknown [id number] 2.16.8 [id number] 1959 Medicaid [id number] Medicaid [id number] Unknown [id number] 2.16.8 [id number] Social History Date Type Detail Facility Start: 11-15-2022 Tobacco smoking stat us TNIS Unknown if ever smoked [facility] Start: 1965 Sex Assigned At Male F [facility] Start: 11-19-2023 Never a smoker Never a smoker -[facility] [place] 250 DO Work Phone: Comment on above: Mt Dew rarely non ca ffeined soda; Start: 11-19-2023 End: 05-25-2024 Tobacco smoking status NHIS Never smoked tobacco [facility] Start: 11-19-2023 Tobacco use and exposure Smokeless tobacco non-user [facility] Work Phone: Start: 11-19-2023 End: 05-25-2024 Alcohol intake Lifetime non-drinker (finding) [facility] Work Phone: Start: 1965 Sex Assigned At Not on file [facility] Work Phone: Start: 11-19-2023 Gender identity Not on file [facility] Work Phone: Start: 11-09-2023 End: 05-25-2024 Exposure to SARS-CoV-2 (event) Not sure [facility] Start: 05-25-2024 Tobacco use and exposure User of smokeless tobacco [facility] Work Phone: History of tobacco use Snuff User [facility] Work Phone: Medical Equipment Procedure Code Equipment Code Equipment Origin al Text Equipment Identifier Dates Drug-eluting coronary artery stent, vbo-[id number]-el lymer-coated ([id number] FDA Start: 11-15-2022 Goals Date Patient Goal Desired Activity /State Functional Status Date Assessment Result Facility 11-17-2022 Functional status [facility] at [facility] Work Phone: Mental Status Date Assessment Result Facility 11-17-2022 Cognitive function Cognitive Sta tus Patient at Baseline [facility] Work Phone: Clinical Notes 11-15-2022 to 05-25-2024 Shyam Haile, DO - 05/25/2024 10:00 AM EDTPatient InstructionsAttachTiffanie Haile, DO - 11/19/2023 11:40 AM ESTPatient Instructions Note Date & Type Note Facility 05-25-2024 History of Present illness Narrative Subjective Carson Mendoza is a 58 y.o. male Chief Complaint Follow-up 58-year-old gentleman returns for annual follow-up he is doing well he denies any cardiovascular events, complaints, nitrate usage or hospitalizations. He remains on appropriate GDMT other than for some reason atorvastatin is fallen off his list. He is undergoing GI workup for lack of appetite. There is no history of diabetes, he does smoke marijuana and chews snuff and we have counseled him for 3 to 5 minutes today on abstention from inhaled products including nicotine products. He has a history of large anterior WA in November [address] Balbuena with primary revascularization of the ostial/proximal LAD initially with severe LV dysfunction and subsequent normalization of his LV function There is no evidence of heart failure or recurrent ACS or anginal complaints or nitrate usage Recommendations: Obtain lipid panel, continue counseling on dietary discretion weight loss and aerobic activity and exercise, reinitiate atorvastatin 40 mg daily with lipid panel to follow, follow-up in 1 year Review of Systems Cardiovascular: Positive for chest pain. Vitals: 05/25/24 1012 BP: 120/70 BP Location: Right arm Patient Position: Sitting Pulse: 72 Weight: 108 kg (238 lb 9.6 oz) Height: 1.829 m (6') Objective Physical Exam Constitutional: Appearance: Normal appearance. HENT: Nose: Nose normal. Neck: Vascular: No carotid bruit. Cardiovascular: Rate and Rhythm: Normal rate. Pulses: Normal pulses. Heart sounds: Normal heart sounds. Pulmonary: Effort: Pulmonary effort is normal. Abdominal: General: Bowel sounds are normal. Palpations: Abdomen is soft. Musculoskeletal: General: Normal range of motion. Cervical back: Normal range of motion. Right lower leg: No edema. Left lower leg: No edema. Skin: General: Skin is warm and dry. Neurological: General: No focal deficit present. Mental Status: He is alert. Psychiatric: Mood and Affect: Mood normal. Behavior: Behavior normal. Thought Content: Thought content normal. Judgment: Judgment normal. Allergies Patient has no known allergies. Current Medications Current Outpatient Medications: aspirin 81 mg chewable tablet, TAKE 1 TABLET BY MOUTH EVERY DAY, Disp: 90 tablet, Rfl: 3 carvedilol (Coreg) 6.25 mg tablet, Take 1 tablet (6.25 mg) by mouth 2 times daily (morning and late afternoon)., Disp: , Rfl: clopidogrel (Plavix) 75 mg tablet, Take 1 tablet (75 mg) by mouth once daily., Disp: 90 tablet, Rfl: 3 furosemide (Lasix) 20 mg tablet, Take 1 tablet (20 mg) by mouth if needed (as needed for lower extremity edema)., Disp: 90 tablet, Rfl: 0 nitroglycerin (Nitrostat) 0.4 mg SL tablet, Place 1 tablet (0.4 mg) under the tongue every 5 minutes if needed., Disp: , Rfl: valsartan (Diovan) 80 mg tablet, TAKE 1 TABLET BY MOUTH TWICE A DAY, Disp: 180 tablet, Rfl: 3 atorvastatin (Lipitor) 40 mg tablet, Take 1 tablet (40 mg) by mouth once daily., Disp: 90 tablet, Rfl: 3 Assessment/Plan 1. Coronary artery disease involving lytton coronary 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 Follow Up In Cardiology atorvastatin (Lipitor) 40 mg tablet Follow Up In Cardiology 2. ST elevation myocardial infarction (STEMI) of anterolateral wall (Multi) Follow Up In Cardiology atorvastatin (Lipitor) 40 mg tablet 3. H/O percutaneous transluminal coronary angioplasty atorvastatin (Lipitor) 40 mg tablet 4. Mixed hyperlipidemia atorvastatin (Lipitor) 40 mg tablet 5. Essential hypertension 6. BMI 32.0-32.9,adult 7. Chewing tobacco nicotine dependence without complication Scribe Attestation By signing my name below, I, Neela Tank JONES , Scribe attest that this documentation has been prepared under the direction and in the presence of Shyam Haile DO. Provider Attestation - Scribe documentation All medical record entries made by the Scribe were at my direction and personally dictated by me. I have reviewed the chart and agree that the record accurately reflects my personal performance of the history, physical exam, discussion and plan. documented in this encounter [facility] Work Phone: 05-25-2024 Instructions Neela Rodriguez LPN - 05/25/2024 10:00 AM EDT Please bring all medicines, vitamins, and herbal supplements with you when you come to the office. Prescriptions will not be filled unless you are compliant with your follow up appointments or have a follow up appointment scheduled as per instruction of your physician. Refills should be requested at the time of your visit. BMI was above normal measurement. Current weight: 108 kg (238 lb 9.6 oz) Weight change since last visit (-) denotes wt loss -21.4 lbs Weight loss needed to achieve BMI 25: 54.7 Lbs Weight loss needed to achieve BMI 30: 17.9 Lbs Provided instructions on dietary changes Provided instructions on exercise. The following attachments cannot be sent through Care Everywhere.Heart Healthy Diet (South Korean)documented in this encounter [facility] Work Phone: 11-19-2023 History of Present illness Narrative Subjective Carson Mendoza is a 58 y.o. male Chief Complaint Follow-up 58-year-old gentleman seen for the first time by myself, with a previous history of large anterior WA in November [address] Balbuena with primary revascularization of the ostial/proximal LAD initially with severe LV dysfunction and subsequent normalization of his LV function on guideline directed medical therapies. He is a non-smoker, nondiabetic, maintaining compliance with medical therapies He is followed up with nurse practitioner x 4 over the past year now seeing me on the 1 year anniversary. He remains modestly overweight, does not exercise on a regular basis, performed cardiac rehab sparingly. Recommendations: Discontinue ticagrelor, switch to clopidogrel once his ticagrelor prescription is completed in the next 60 days, continue GDMT as reviewed, obtain appropriate laboratories follow-up in 6 months Review of Systems All other systems reviewed and are negative. Vitals: 11/19/23 1141 BP: 112/66 BP Location: Left arm Patient Position: Sitting Pulse: 82 Weight: 118 kg (260 lb) Height: 1.829 m (6') Objective Physical Exam Constitutional: Appearance: Normal appearance. He is normal weight. HENT: Nose: Nose normal. Neck: Vascular: No carotid bruit. Cardiovascular: Rate and Rhythm: Normal rate. Pulses: Normal pulses. Heart sounds: Normal heart sounds. Pulmonary: Effort: Pulmonary effort is normal. Abdominal: General: Bowel sounds are normal. Palpations: Abdomen is soft. Genitourinary: Rectum: Normal. Musculoskeletal: General: Normal range of motion. Cervical back: Normal range of motion. Right lower leg: No edema. Left lower leg: No edema. Skin: General: Skin is warm and dry. Neurological: General: No focal deficit present. Mental Status: He is alert. Psychiatric: Mood and Affect: Mood normal. Behavior: Behavior normal. Thought Content: Thought content normal. Judgment: Judgment normal. Allergies Patient has no known allergies. Current Medications Current Outpatient Medications: aspirin 81 mg chewable tablet, Chew 1 tablet (81 mg) once daily., Disp: , Rfl: atorvastatin (Lipitor) 80 mg tablet, Take 1 tablet (80 mg) by mouth once daily at bedtime., Disp: , Rfl: carvedilol (Coreg) 6.25 mg tablet, Take 1 tablet (6.25 mg) by mouth 2 times a day with meals., Disp: , Rfl: furosemide (Lasix) 20 mg tablet, Take 1 tablet (20 mg) by mouth once daily as needed (use daily as needed for swelling)., Disp: 90 tablet, Rfl: 3 furosemide (Lasix) 20 mg tablet, Take 1 tablet (20 mg) by mouth if needed (as needed for lower extremity edema)., Disp: 90 tablet, Rfl: 0 nitroglycerin (Nitrostat) 0.4 mg SL tablet, Place 1 tablet (0.4 mg) under the tongue every 5 minutes if needed., Disp: , Rfl: spironolactone (Aldactone) 25 mg tablet, Take 1 tablet (25 mg) by mouth once daily., Disp: , Rfl: valsartan (Diovan) 80 mg tablet, Take 1 tablet (80 mg) by mouth 2 times a day., Disp: , Rfl: Scribe Attestation By signing my name below, I, Neela Fu LPN , Scribe attest that this documentation has been prepared under the direction and in the presence of Shyam Haile DO. Assessment/Plan 1. Coronary artery disease involving lytton coronary 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 2. Cardiomyopathy, ischemic 3. Essential hypertension, benign 4. Mixed hyperlipidemia 5. ST elevation myocardial infarction (STEMI) of anterolateral wall (CMS/HCC) 6. H/O percutaneous transluminal coronary angioplasty documented in this encounter [facility] Work Phone: 11-19-2023 Instructions Neela Rodriguez LPN - 11/19/2023 11:40 AM EST Please bring all medicines, vitamins, and herbal supplements with you when you come to the office. Prescriptions will not be filled unless you are compliant with your follow up appointments or have a follow up appointment scheduled as per instruction of your physician. Refills should be requested at the time of your visit. Finish brilinta then fill rx for plavix 75mg daily BMI was above normal measurement. Current weight: 118 kg (260 lb) Weight change since last visit (-) denotes wt loss 5 lbs Weight loss needed to achieve BMI 25: 76.1 Lbs Weight loss needed to achieve BMI 30: 39.3 Lbs Provided instructions on dietary changes Provided instructions on exercise. documented in this encounter [facility] Work Phone: 11-17-2022 Discharge summary Note Date/Time November 17, 2022 10:17am [facility] [address] [place] [address] Discharge Summary Signed Patient: Carson Mendoza MR#: [id number] : 1965 Acct:[id number] Age/Sex: 57 / M Adm Date: 3 Loc: Room: [address] [place] [address]: Andrew Balbuena MD Copies to: MD Andrew Magaña MD W Scott Sheldon, DO~ Providers Date of Discharge: 11/17/22 Discharging Provider: Gato Haile Primary Care Provider: Lydia Wheat Consults: 11/15/22 10:17 Consult to Cardiac Rehabilitation Routine Discharge Diagnosis (1) ST elevation myocardial infarction (STEMI) of anterior wall: Final Diagnosis Final Discharge Diagnosis: 1. Anterior STEMI 2. Severe ischemic cardiomyopathy 3. Nicotine use Summary Hospital Course Hospital course: 57-year-old gentleman transferred from [facility] Thursday morning with ST elevation myocardial infarction involving anterior wall and underwent rapid revascularization of proximal LAD with drug-eluting stent with Dr. Andrew Juarez. Left ventricular function is severely reduced at 20 to 25% with anteroapical akinesis. Patient has had no postinfarction complications, remains on appropriate guideline directed medical therapies He is a non-smoker but chews tobacco Smoking cessation counseling performed for 3 to 10 minutes this morning, counseling on medication compliance, follow-up in cardiac rehab also performed Patient be discharged on current therapies as reviewed, follow-up with cardiology within the next 1 to 2 weeks. Work-related weight limitations will be imposed and discussed with the patient including workout exercises (bench pressing etc.) Time spent discussing smoking cessation with patient: 3 to 10 minutes Condition Condition at Discharge: Stable Status at Discharge Functional status at discharge: independent ambulation Overall status at discharge: patient is progressing back to baseline Time Spent with Patient Time spent providing/coordinating discharge services (# min): 30 Specific discharge activities: Light duty Surgeries and Procedures Operation Date: 11/15/22 09:00 Actual Procedures p CL LHC & COR Angio - Andrew Balbuena MD p CL PCI AMI 1st Vessel LAD SUMMER - Andrew Balbuena MD Complications Complications: None Diagnostic Studies Completed and Pending Studies Pending studies at discharge: 11/15/22 10:17 CPR cardiac rehab ed Routine 11/16/22 05:00 ECH echo transthoracic IN AM 11/18/22 05:00 Basic Metabolic Panel [CHEM] IN AM Complete Blood Count Auto Diff IN AM 11/19/22 05:00 Basic Metabolic Panel [CHEM] IN AM Complete Blood Count Auto Diff IN AM 11/20/22 05:00 Basic Metabolic Panel [CHEM] IN AM Complete Blood Count Auto Diff IN AM Labs on day of discharge: 11/17/22 03:55: PHA Creatinine Clear 116.86, Sodium 130 L, Potassium 4.0, Chloride 97, Carbon Dioxide 27.1, Anion Gap 9.9, BUN 14, Creatinine 0.96, Est GFR ( Amer) > 60, Est GFR (Non-Af Amer) > 60, Glucose 262 H, Calcium 8.8, Triglycerides 59, Cholesterol 107 L, LDL Cholesterol, Calc 69, VLDL Cholesterol 11, HDL Cholesterol 26 L, Cholesterol/HDL Ratio 4.1 11/17/22 03:55: Corrected WBC 14.0 H, Uncorrected WBC Count 14.0 H, RBC 5.36, Hgb 14.9, Hct 43.1, MCV 80.4 L, MCH 27.8, MCHC 34.6, RDW 14.2, Plt Count 347, MPV 7.9, Neut % (Auto) 65.4, Lymph % (Auto) 20.9, Wilbarger % (Auto) 11.8, Eos % (Auto) 1.3, Baso % (Auto) 0.6, Nucleat RBC Rel Count 0.1, Neut # (Auto) 9.1 H, Lymph # (Auto) 2.9, Wilbarger # (Auto) 1.6 H, Eos # (Auto) 0.2, Baso # (Auto) 0.1, Platelet Estimate Normal, Plt Morphology Comment Normal, RBC Morphology N/A, Anisocytosis Moderate, Microcytosis Moderate Exam Physical Exam Vital Signs: Temp Pulse Resp BP Pulse Ox O2 Del Method 98.6 F 104 H 22 121/72 95 Room Air 11/17/22 08:00 11/17/22 08:00 11/17/22 08:00 11/17/22 08:00 11/17/22 08:00 11/17/22 08:00 Discharge Plan Discharge Plan Patient Disposition: Home Diet: Low-Cholesterol Additional Instructions: DISCHARGE INSTRUCTIONS FOR ANGIOPLASTY/CORONARY/PERIPHERAL/STENT IMPLANT FOR ADULT ANTICOAGULATION -Since the greatest risk of a blood clot forming with the stent occurs in the first 2-3 weeks after implantation, you will need to take anticoagulants for at least 1 year ANTICOAGULATION MEDICATION [INSERT MEDICATION NAME: Aspirin 81mg once a day, Ticagrelor (Brilinta) 90mg twice a day] STATIN MEDICATION [INSERT MEDICATION NAME: atorvastatin (Lipitor) 80 mg [Drug-Eluting Stent (SUMMER) duration] DO NOT discontinue Brilinta/Aspirin during the first few months regardless of what you are advised by your family doctor or pharmacist, without first calling the outbound sales executive who implanted the stent. If you require pain relief during this time, please take only ACETAMINOPHEN (TYLENOL)- NO additional aspirin or ibuprofen. DISCHARGE ACTIVITIES ARE FOLLOWS: First week after discharge: -Take it easy at home, no strenuous activity. -Do not lift or pull objects over 10-15 pounds, including children, and groceries for four weeks. If puncture site is at wrist do NOT lift more than three pounds for three days. - May walk up stairs. -May shower. -No excessive scrubbing of the affected site (groin). -May ride in car. -May resume sexual intercourse after 1-2 weeks. -No MRI for 12 days. -May drive in 4-7 days. -If puncture site is at the wrist do not manipulate the wrist for 24 hours, and no soaking wrist for three days. Second Week: -May take a bath -May start walking 3 times a week for 15-20 minutes at a leisurely pace. You should be able to carry on a conversation comfortably without feeling winded. -No strenuous activity as in jogging, running, weight lifting, stair steppers, etc. until the outbound sales executive approves these activities. Check with the outbound sales executive on your first follow-up visit.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 use and encouraged to abstain. * Would benefit from cardiac rehab and once again encouraged him to attend. * Overall patient is pleased with current state of cardiovascular health. At this time there are no indications for additional cardiovascular testing or need for medication changes. 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 DATE CREATED AUTHOR AUTHOR'S ORGANIZ ATION 05/01/2023 [facility] DATE CREATED AUTHOR AUTHOR'S ORGANIZ ATION 05/04/[address] [facility] DATE CREATED AUTHOR AUTHOR'S ORGANIZ ATION 05/27/2024 [facility] Ambulatory Reason for Visit (unrecogniz ed section and content) Reason Comments Follow-up 6 month Reason Comments Follow-up 6m Specialty Diagnoses / Procedures Referred By Janet t Referred To Contact Cardiology Diagnoses Coronary artery disease involving lytton coronary 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 ST elevation myocardial infarction (STEMI) of anterolateral wall (Multi) Procedures Follow Up In Cardiology Shyam Haile, [address] [facility] 2, [address] [place] [address] Shyam Haile, DO [address] [place] [address] Referral ID Status Reason Start Date Expiration Date V isits Requested Visits Authorized [id number] Authorized 11/19/2023 11/18/2024 1 1 FOR RECORDS PERTAINING TO PATIENTS WHO ARE OR HAVE BEEN ENROLLED IN A CHEMICAL DEPENDENCY/SUBSTANCEABUSE PROGRAM, SOME INFORMATION MAY BE OMITTED. This clinical summary was aggregated from multiple sources. Caution should be exercised in using it in the provision of clinical care. This summary normalizes information from multiple sources, and as a consequence, information in this document may materially change the coding, format and clinical context of patient data. In addition, data may be omitted in some cases. CLINICAL DECISIONS SHOULD BE BASED ON THE PRIMARY CLINICAL RECORDS. [facility]. provides no warranty or guarantee of the accuracy or completeness of information in this document.
--- NOTE | 2024-10-03 07:45 | ECG_ITS ---
[facility] Test Date: 2024-10-03 Pat Name: CARSON MENDOZA Department: Room: - Gender: Male Credit Representative: : 1965 Requested By: CY CHEATHAM Order Number: [id number] Reading MD: CATHIE SEVERINO Measurements Intervals Tamiment Rate: 78 P: 21 SC: 186 QRS: -41 QRSD: 118 T: 67 QT: 408 QTc: 441 Interpretive Statements 1100 Sinus rhythm 2440 Incomplete right bundle branch block 3434 Septal myocardial infarction, age undetermined 7200 Abnormal left axis deviation 8102 Low QRS voltage in chest leads 9150 abnormal ECG Electronically Signed On 10-04-2024 6:58:46 EST by CATHIE SEVERINO
--- NOTE | 2024-10-03 07:45 | XR_ITS ---
[address] [address] Patient Name: CARSON MENDOZA MRN: [id number] date: 1965 Sex: M Assigned Patient Location: ER Current Patient Location: ED.MAIN Accession/Order Number: [id number] Exam Date: 10/03/2024 08:00 Report Date: 10/03/2024 08:18 At the request of: JORGE ONEAL Procedure: XR chest 1V EXAMINATION: XR chest 1V HISTORY: syncope COMPARISON: XR chest 11/15/2022 FINDINGS: LUNGS: No significant pulmonary parenchymal abnormalities. VASCULATURE: No increased pulmonary vasculature. PLEURA: No pneumothorax, effusion, or pleural thickening. CARDIAC: No cardiomegaly or cardiac silhouette abnormality. MEDIASTINUM: No visible mass or adenopathy. BONES: No fracture or visible bone lesion. OTHER: Negative. XR/XR chest 1V IMPRESSION: 1. No acute cardiopulmonary process. Electronically authenticated by: MELIDA SHEPHERD Date: 10/03/2024 08:18
--- NOTE | 2024-10-03 07:47 | CT_ITS ---
[address] [address] Patient Name: CARSON MENDOZA MRN: [id number] date: 1965 Sex: M Assigned Patient Location: ER Current Patient Location: ER Accession/Order Number: [id number] Exam Date: 10/03/2024 08:00 Report Date: 10/03/2024 08:38 At the request of: JORGE ONEAL Procedure: CT cervical spine wo con EXAMINATION: CT cervical spine wo con HISTORY: fall COMPARISON: No relevant comparison available. TECHNIQUE: Axial, Coronal, and Sagittal images were created without IV contrast. Dose reduction techniques were achieved by using automated exposure control and/or adjustment of mA and/or kV according to patient size and/or use of iterative reconstruction technique. FINDINGS: VERTEBRAL BODIES: No fracture or spondylolisthesis. Multilevel mild-moderate degenerative facet arthropathy. Prominent uncovertebral joint spurring projecting into the right C3-4 foramen causing marked stenosis. FACET JOINTS: No disruption or abnormal widening. DISCS: Multilevel mild narrowing. CENTRAL CANAL: No evidence of hemorrhage. PARASPINAL AREA: No visible mass. CT/CT cervical spine wo con IMPRESSION: 1. No appreciable acute abnormality. 2. Degenerative changes as detailed above. Electronically authenticated by: MELIDA SHEPHERD Date: 10/03/2024 08:38
--- NOTE | 2024-10-03 07:47 | CT_ITS ---
[address] [address] Patient Name: CARSON MENDOZA MRN: [id number] date: 1965 Sex: M Assigned Patient Location: ER Current Patient Location: ER Accession/Order Number: [id number] Exam Date: 10/03/2024 08:00 Report Date: 10/03/2024 08:24 At the request of: JORGE ONEAL Procedure: CT head/brain wo con EXAMINATION: CT head/brain wo con HISTORY: syncope head injury COMPARISON: No relevant comparison available. TECHNIQUE: Axial CT images were obtained without IV contrast. Dose reduction techniques were achieved by using automated exposure control and/or adjustment of mA and/or kV according to patient size and/or use of iterative reconstruction technique. FINDINGS: BRAIN: No edema, hemorrhage, mass, acute infarction, or inappropriate atrophy. CSF SPACES: No hydrocephalus, subarachnoid hemorrhage, or mass. Appropriate for age. SKULL: No fracture, mass, or other significant visible lesion. SINUSES: No significant mucosal thickening or fluid on the limited views. ORBITS: No appreciable abnormality on the limited views. OTHER: Negative CT/CT head/brain wo con IMPRESSION: 1. Normal CT appearance of the brain. 2. No fracture of the calvarium or scalp hematoma. Electronically authenticated by: MELIDA SHEPHERD Date: 10/03/2024 08:24
--- NOTE | 2024-10-03 07:52 | ED_ITS ---
HPI HPI - General Adult General Chief complaint: Weakness Stated complaint: DIZZINESS FALL Time Seen by Provider: 10/03/24 07:34 Source: patient Mode of arrival: walk-in Limitations: no limitations History of Present Illness HPI narrative: Patient presents to ED complaining of syncopal episode with head injury. Apparently he yelled out for his at home and she got up out of bed to find him and he was laying on the floor in the bathroom. He thinks he was trying to use the bathroom but he does not remember passing out. She said there was blood on the floor and blood in the doorway and he has a scrape on the top of his head. He said lately he has been feeling more fatigued and he has been losing weight. He does have a history of an ME with stent placement about a year ago, last November. He said last night when he laid down in bed he had a little bit of chest pain but that went away. He said he could not sleep all night because he was lightheaded. He said the dog kept him up all night. No fever no cough no shortness of breath. He said he was diaphoretic when the found him she said his shirt was wet and he was very sweaty. Pain. He does have a scrape on the top of his head. He denies neck pain. No weakness in his arms or legs. The does report he has been losing recently and he reports his appetite is decreased. He denies any dark stool or blood in the stool. He is on aspirin and Plavix status post stents Related Data Home Medications ?Medication ?Instructions ?Recorded ?Confirmed aspirin 81 mg chewable tablet 81 mg PO DAILY 10/03/24 10/03/24 (Emy Chewable Low Dose Aspirin) atorvastatin 40 mg tablet 40 mg PO DAILY 10/03/24 10/03/24 clopidogrel 75 mg tablet 75 mg PO DAILY 10/03/24 10/03/24 valsartan 80 mg tablet 80 mg PO Q12H 10/03/24 10/03/24 Allergies Allergy/AdvReac Type Severity Reaction Status Date / Time No Known Drug Allergies Allergy Verified 10/03/24 07:37 Opioid HPI Opioid Management Most Recent Opioid Data: No Data to Display Review of Systems ROS Status of ROS 10 or more systems reviewed and unremark able except as noted in history and below PFSH PFSH Social History Little interest or pleasure in doing things: not at all Feeling down, depressed, or hopeless: not at all Exam Narrative Exam Narrative: Time Seen: [] Vital Signs: [Per nurse's notes.] General: [Alert] Skin: [Warm, dry, no rash.] Head: [Normocephalic, atraumatic.] Neck: [Supple, trachea midline.] Eye: [Pupils are equal, round and reactive to light, extraocular movements are intact, normal conjunctiva.] Ears, nose, mouth and throat: oral mucosa moist. Cardiovascular: [Regular rate and rhythm, no murmur.] Respiratory: [Lungs are clear to auscultation, respirations are non-labored, breath sounds are equal.] Chest wall: [No tenderness, no deformity.] Gastrointestinal: [Soft, nontender, non distended, normal bowel sounds.] MSK: 5 out of 5 muscle strength x 4 extremities no calf pain or edema Lymphatics: [No lymphadenopathy.] Psychiatric: [Cooperative, appropriate mood & affect.] Neurological: [Alert and oriented to person, place, time, and situation, no focal neurological deficit observed.] Constitutional Vital Signs, click to edit/add: Last Vital Signs Temp 97.9 F 10/03/24 07:37 Pulse 71 10/03/24 08:20 Resp 13 10/03/24 08:20 BP 108/65 10/03/24 08:30 Pulse Ox 99 10/03/24 08:20 O2 Del Method Room Air 10/03/24 07:37 Course Vital Signs Vital signs: Vital Signs Temperature 97.9 F 10/03/24 07:37 Pulse Rate 80 10/03/24 07:37 Respiratory Rate 18 10/03/24 07:37 Blood Pressure 103/66 10/03/24 07:37 Pulse Oximetry 99 10/03/24 07:37 Oxygen Delivery Method Room Air 10/03/24 07:37 Temperature 97.9 F 10/03/24 07:37 Pulse Rate 71 10/03/24 08:20 Respiratory Rate 13 10/03/24 08:20 Blood Pressure 108/65 10/03/24 08:30 Pulse Oximetry 99 10/03/24 08:20 Oxygen Delivery Method Room Air 10/03/24 07:37 Medical Decision Making MDM Narrative Medical decision making narrative: Patient CT brain and CT C-spine were negative for any acute findings. Labs are negative for any acute findings as well. Given the fact that this patient had a syncopal episode with head injury and unknown length of loss of consciousness, he should be admitted for further evaluation and monitoring. Patient's troponins negative x 1 although he did have some mild chest pain last night while he was trying to go to bed. I spoke to Dr. Wheat and he agrees. He was in ED to evaluate the patient. Patient and family were updated that the patient will be staying for observation and further cardiac monitoring. They are comfortable with care plan for admission. Differential Diagnosis Differential Diagnosis: Syncope, head injury, ACS, electrolyte abnormality, anemia Lab Data Lab results reviewed: Yes I reviewed the patient's lab results Labs: Lab Results 10/03/24 10/03/24 10/03/24 Range/Units 07:45 07:47 07:58 WBC 10.7 (4.0-11.0) 10^3/uL RBC 4.45 L (4.70-6.10) 10^6/uL Hgb 12.9 L (14.0-18.0) g/dL Hct 36.8 L (42.0-54.0) % MCV 82.7 (80.0-94.0) fL MCH 29.0 (25.9-34.0) pg MCHC 35.1 (29.9-35.2) g/dL RDW 13.6 (11.0-15.0) % Plt Count 312 (150-450) 10^3/uL MPV 9.3 L (9.5-13.5) fL Neut % (Auto) 54.0 (43.0-75.0) % Lymph % (Auto) 33.0 (20.5-60.0) % [place] % (Auto) 8.4 (1.7-12.0) % Eos % (Auto) 2.7 (0.9-7.0) % Baso % (Auto) 1.2 (0.2-2.0) % Neut # (Auto) 5.8 (1.4-6.5) 10^3/uL Lymph # (Auto) 3.5 (1.2-3.8) 10^3/uL [place] # (Auto) 0.9 H (0.3-0.8) 10^3/uL Eos # (Auto) 0.3 (0.0-0.7) 10^3/uL Baso # (Auto) 0.1 (0.0-0.1) 10^3/uL Abs Immat Gran (auto) 0.07 H (0.00-0.03) 10^3/uL Imm/Tot Granulo (auto) 0.7 H (0.0-0.5) % PT (9.0-11.6) sec INR Sodium 141 (136-145) mmol/L Potassium 3.3 L (3.5-5.1) mmol/L Chloride 103 (98-107) mmol/L Carbon Dioxide 28.8 (21.0-32.0) mmol/L Anion Gap 12.5 BUN 9.0 (7.0-18.0) mg/dL Creatinine 1.07 (0.70-1.30) mg/dL Est GFR ( Amer) >60 (>=60 mL/min/1.73m^2) Est GFR (Non-Af Amer) >60 (>=60 mL/min/1.73m^2) BUN/Creatinine Ratio 8.4 Glucose 181 H (74-106) mg/dL Calcium 8.8 (8.5-10.1) mg/dL Total Bilirubin 1.1 H (0.2-1.0) mg/dL AST 12 L (15-37) U/L ALT 15 L (16-63) U/L Alkaline Phosphatase 106 (46-116) U/L Troponin I High Sens 18.1 (4.0-76.1) pg/mL Total Protein 7.1 (6.4-8.2) g/dL Albumin 3.6 (3.4-5.0) g/dL Globulin 3.5 g/dL Albumin/Globulin Ratio 1.0 Influenza Type A Ag Negative Influenza Type B Ag Negative SARS-CoV-2 Ag (CV2AG) Negative (NEGATIVE) POC Glucose 179 H (74-106) mg/dL 10/03/24 Range/Units 08:15 WBC (4.0-11.0) 10^3/uL RBC (4.70-6.10) 10^6/uL Hgb (14.0-18.0) g/dL Hct (42.0-54.0) % MCV (80.0-94.0) fL MCH (25.9-34.0) pg MCHC (29.9-35.2) g/dL RDW (11.0-15.0) % Plt Count (150-450) 10^3/uL MPV (9.5-13.5) fL Neut % (Auto) (43.0-75.0) % Lymph % (Auto) (20.5-60.0) % [place] % (Auto) (1.7-12.0) % Eos % (Auto) (0.9-7.0) % Baso % (Auto) (0.2-2.0) % Neut # (Auto) (1.4-6.5) 10^3/uL Lymph # (Auto) (1.2-3.8) 10^3/uL [place] # (Auto) (0.3-0.8) 10^3/uL Eos # (Auto) (0.0-0.7) 10^3/uL Baso # (Auto) (0.0-0.1) 10^3/uL Abs Immat Gran (auto) (0.00-0.03) 10^3/uL Imm/Tot Granulo (auto) (0.0-0.5) % PT 11.3 (9.0-11.6) sec INR 1.07 Sodium (136-145) mmol/L Potassium (3.5-5.1) mmol/L Chloride (98-107) mmol/L Carbon Dioxide (21.0-32.0) mmol/L Anion Gap BUN (7.0-18.0) mg/dL Creatinine (0.70-1.30) mg/dL Est GFR ( Amer) (>=60 mL/min/1.73m^2) Est GFR (Non-Af Amer) (>=60 mL/min/1.73m^2) BUN/Creatinine Ratio Glucose (74-106) mg/dL Calcium (8.5-10.1) mg/dL Total Bilirubin (0.2-1.0) mg/dL AST (15-37) U/L ALT (16-63) U/L Alkaline Phosphatase (46-116) U/L Troponin I High Sens (4.0-76.1) pg/mL Total Protein (6.4-8.2) g/dL Albumin (3.4-5.0) g/dL Globulin g/dL Albumin/Globulin Ratio Influenza Type A Ag Influenza Type B Ag SARS-CoV-2 Ag (CV2AG) (NEGATIVE) POC Glucose (74-106) mg/dL Imaging Data Chest x-ray: Radiologist's impression: ITS Impressions Chest X-Ray 10/03/24 07:45 IMPRESSION: 1. No acute cardiopulmonary process. Electronically authenticated by: MELIDA SHEPHERD Date: 10/03/2024 08:[address] 10/03/24 07:47 IMPRESSION: 1. No appreciable acute abnormality. 2. Degenerative changes as detailed above. Electronically authenticated by: MELIDA SHEPHERD Date: 10/03/2024 08:[address] 10/03/24 07:47 IMPRESSION: 1. Normal CT appearance of the brain. 2. No fracture of the calvarium or scalp hematoma. Electronically authenticated by: MELIDA SHEPHERD Date: 10/03/2024 08:24 ECG Data Attestation: I personally reviewed and interpreted this ECG as follows: Interpretation: EKG INTERPRETATION Time: [] 740 Rate: [] 78 Rhythm: _ [] Normal sinus rhythm ST segments: _ [] T waves: _ [] Ectopy: _ [] P wave/VA interval: _ [] QRS interval: _ [] QT interval: _ [] Comparison: _ [] Comparison EKG date: [] Performed by: [self] incomplete right bundle branch block no acute ST elevation or depression Discharge Plan Discharge Chief Complaint: Weakness Clinical Impression: Syncope, Weakness Patient Disposition: Admitted as Observation Time of Disposition Decision: 09:37 Condition: Fair Prescriptions / Home Meds: No Action aspirin [Emy Chewable Aspirin] 81 mg tablet,chewable 81 mg PO DAILY atorvastatin 40 mg tablet 40 mg PO DAILY clopidogrel 75 mg tablet 75 mg PO DAILY valsartan 80 mg tablet 80 mg PO Q12H Print Language: Bengali Referrals: CY CHEATHAM [Primary Care Provider] - 1 week
[2024-10-03 07:55] LABS: Glucometer 179 mg/dL (74-106)
[2024-10-03 07:57] LABS: Basophils Absolute Auto 0.1 10^3/uL (0.0-0.1); Basophils Percent Auto 1.2 % (0.2-2.0); Eosinophils Absolute Auto 0.3 10^3/uL (0.0-0.7); Eosinophils Percent Auto 2.7 % (0.9-7.0); Hematocrit 36.8 % (42.0-54.0); Hemoglobin 12.9 g/dL (14.0-18.0); Immature Granulocytes Abs Auto 0.07 10^3/uL (0.00-0.03); Immature Granulocytes Pct Auto 0.7 % (0.0-0.5); Lymphocytes Absolute Auto 3.5 10^3/uL (1.2-3.8); Mean Corpuscular HGB Conc 35.1 g/dL (29.9-35.2); Mean Corpuscular Volume 82.7 fL (80.0-94.0); Mean Platelet Volume 9.3 fL (9.5-13.5); Monocytes Absolute Auto 0.9 10^3/uL (0.3-0.8); Monocytes Percent Auto 8.4 % (1.7-12.0); Neutrophils Absolute Auto 5.8 10^3/uL (1.4-6.5); Platelet Count 312 10^3/uL (150-450); Red Blood Count 4.45 10^6/uL (4.70-6.10); Red Cell Distribution Width 13.6 % (11.0-15.0); White Blood Count 10.7 10^3/uL (4.0-11.0)
[2024-10-03] MEDS: 0.9 % SODIUM CHLORIDE 500 ML IV (08:00)
[2024-10-03 08:16] LABS: Alanine Aminotransferase 15 U/L (16-63); Albumin Level 3.6 g/dL (3.4-5.0); Alkaline Phosphatase 106 U/L (46-116); Anion Gap 12.5; Aspartate Amino Transferase 12 U/L (15-37); BUN Creatinine Ratio 8.4; Bilirubin Total 1.1 mg/dL (0.2-1.0); Calcium 8.8 mg/dL (8.5-10.1); Carbon Dioxide 28.8 mmol/L (21.0-32.0); Chloride 103 mmol/L (98-107); Estimated GFR (African America >60 (>=60 mL/min/1.73m^2); Estimated GFR (Non-African Ame >60 (>=60 mL/min/1.73m^2); Globulin 3.5 g/dL; Glucose 181 mg/dL (74-106); Potassium 3.3 mmol/L (3.5-5.1); Sodium 141 mmol/L (136-145); Total Protein 7.1 g/dL (6.4-8.2); Troponin I High Sensitivity 18.1 pg/mL (4.0-76.1)
[2024-10-03 08:33] LABS: Influenza Virus A Antigen Negative; Influenza Virus B Antigen Negative; Internal Control Within Normal Limits; SARS-CoV-2 Ag NEGATIVE (NEGATIVE)
[2024-10-03 08:34] LABS: INR 1.07; Prothrombin Time 11.3 sec (9.0-11.6)
[2024-10-03] MEDS: POTASSIUM CHLORIDE 10 MEQ ER TABLET 40 MEQ PO (09:05)
--- NOTE | 2024-10-03 09:54 | P.HP_ITS ---
HPI H&P: HPI History of Present Illness Chief complaint: DIZZINESS FALL Narrative: Patient states he had a normal day yesterday, not been sleeping as much lately, went to the bathroom no other suspecting around 8:00, does not remember getting off the toilet, remembers waking up on the floor this is approximately 45 minutes later as estimated by family, at that time patient was still he states very weak, does not remember all the exact details, family agreed just generalized weakness, no focal neurological deficits When I saw patient in the emergency room, still having a lot of lethargy, is alert and oriented, this is my first time seeing him, but family agrees still seems very fatigued Opioid HPI Opioid Management Most Recent Pain and Opioid Data: No Data to Display Review of Systems ROS Status of ROS 10 or more systems reviewed and unremark able except as noted in history and below PFSH PFSH Social History Little interest or pleasure in doing things: not at all Feeling down, depressed, or hopeless: not at all Meds Home Medications and Allergies Home Medications ?Medication ?Instructions ?Recorded ?Confirmed ?Type aspirin 81 mg chewable tablet 81 mg PO DAILY 10/03/24 10/03/24 History (Emy Chewable Low Dose Aspirin) atorvastatin 40 mg tablet 40 mg PO DAILY 10/03/24 10/03/24 History clopidogrel 75 mg tablet 75 mg PO DAILY 10/03/24 10/03/24 History valsartan 80 mg tablet 80 mg PO Q12H 10/03/24 10/03/24 History Allergies Allergy/AdvReac Type Severity Reaction Status Date / Time No Known Drug Allergies Allergy Verified 10/03/24 07:37 Exam Constitutional Vital Signs, click to edit/add: Last Vital Signs Temp 97.9 F 10/03/24 07:37 Pulse 71 10/03/24 08:20 Resp 13 10/03/24 08:20 BP 108/65 10/03/24 08:30 Pulse Ox 99 10/03/24 08:20 O2 Del Method Room Air 10/03/24 07:37 Documenting provider has reviewed patient's vital signs: yes Common normals: no apparent distress (Seems very fatigued, no slurred speech but very slow) HENMT Common normals: negative for normocephalic (Abrasion on top of head) Lymph Lymphatic: no lymphadenopathy noted Chest Common normals: inspection of chest normal Respiratory Common normals: normal respiratory effort and no retractions Cardio Common normals: regular rate and regular rhythm GI Common normals: Normal to inspection, nondistended, normoactive bowel sounds present and soft to palpation Neuro Common normals: oriented x3, CN's II-XII intact bilaterally, moves all extremities and no focal motor deficits Sensorium/orientation: awake (But very fatigued) Results Labs Labs: Short CBC 10/03/24 Range/Units 07:45 WBC 10.7 (4.0-11.0) 10^3/uL Hgb 12.9 L (14.0-18.0) g/dL Hct 36.8 L (42.0-54.0) % Plt Count 312 (150-450) 10^3/uL BMP 10/03/24 07:45 Sodium 141 Potassium 3.3 L Chloride 103 Carbon Dioxide 28.8 BUN 9.0 Creatinine 1.07 Glucose 181 H Calcium 8.8 Liver Function 10/03/24 Range/Units 07:45 Total Bilirubin 1.1 H (0.2-1.0) mg/dL AST 12 L (15-37) U/L ALT 15 L (16-63) U/L Alkaline Phosphatase 106 (46-116) U/L Albumin 3.6 (3.4-5.0) g/dL Assessment and Plan Assessment and Plan (1) Weakness: (2) Syncope: Plan Admission findings: Head abrasion, CT scans all negative, does have some mild iron deficiency anemia and hypokalemia but patient very slow with his speech, no focal neurological deficits Syncope-possible seizure and currently in a postictal state, will place patient on telemetry, consulted teleneurology, check EEG, check urine drug screen, if he improves over the next 2 to 3 hours with suspect seizure, no history of seizures Coronary artery disease-status post [place] in the past, no chest pain no shortness of breath like he had when he had heart trouble Hypertension-continue with home medications Hypercholesterolemia continue with home medications Admission status: Patient with syncopal episode, placed on telemetry, EEG, teleneurology, medically necessary treatment likely to span only 1 midnight, observation status, if anything comes of the workup and medically necessary treatment will then span 2 midnights, will change patient to inpatient status
--- OUTSIDE RECORDS SUMMARY | 2024-10-03 10:35 | XMS_ITS | CCD ---
Author Organization [facility] Care Team Providers Care Senior Materials Planner Name Role Phone MD Lydia Wheat Primary Care Provider [phone] MD Andrew Balbuena Admit Provider MD Andrew Balbuena Attending Provider MD Andrew Balbuena Referring Provider Lydia Wheat Primary Care Unavailable Andrew Balbuena Referring Unavailable Andrew Balbuena Attending Unavailable Andrew Balbuena Admitting Unavailable Chelsea Cheatham Unavailable Unavailable [...] Scar Camp, Dr. Oro Attending Scar Cheatham PURCHASING MANAGER-Chelsea [facility] Primary Care Provider SHYAM HAILE Attending [...] chewable tablet Indications: Coronary artery disease involving [place] coronary artery of [place] heart without angina pectoris TAKE 1 TABLET BY MOUTH EVERY DAY 90 tablet 3 12/29/2023 Active Start: 06-18-2023 aspirin 81 mg chewable tablet Chew 1 tablet (81 mg) once daily. 0 06/18/2023 Active Start: 11-17-2022 take 1 tablet by caelb once daily Aspirin (Children's Aspirin) 81 mg Tablet,Chewable Active 81 MG PO Daily 90 90 November 17, 2022 12:00am atorvastatin 40 mg oral tablet (9 sources) HMG-CoA Reductase Inhibitor Start: 05-25-2024 End: 05-25-2025 take 1 tablet by mouth once daily atorvastatin (Lipitor) 40 mg tablet Indications: Coronary artery disease involving [place] coronary artery of [place] heart without angina pectoris , ST elevation [...] mg tablet Indications: Coronary artery disease involving [place] coronary artery of [place] heart without angina pectoris , ST elevation [...] 1 Refills: 3 Ordered: 26-Nov-2022 Romaine Vega PURCHASING MANAGER-ACCIDENT INVESTIGATOR Luis Start : 26-Nov-2022 Active spironolactone 25 [...] Coronary arteriosclerosis; Translations: [Atherosclerotic heart disease of savoonga coronary artery without angina pectoris] Onset: 11-15-2022 [...] Tobacco use status CPHS a) Yes M [facility] [place] [address] DO Work Phone: Tobacco Screening. Yes MP-[facility] [address] [place] Work Phone: Echocardiogramon 04-29-[address], [address] [place] [address] TRANSTHORACIC ECHOCARDIOGRAM REPORT Patient Name: CARSON Joey Physician: [id number] Israel Funez MD, [facility] Study Date: 04/29/2023 Referring Physician: LUIS VEGA MRN/PID: [id number] PCP: Accession/Order#: [id number] Department Location: [facility] Date of : 1965 Fellow: Gender: M Nurse: Dayne Wilkins RN Admit Date: Clutch Operator: Chata Solitario [facility], T Height: 180.34 cm CC Report to: Weight: 113.85 kg Study Type: Echocardiogram BSA: 2.32 m2 Blood Pressure: 118 /72 mmHg Diagnosis/ICD: I25.10-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 [place] [address], [address] [facility] [place] [address] Exercise Stress Test Patient Name: CARSON Ordering Physician: KAMI Study Date: 12/12/2022 Reading Physician: [id number] Wendy Camp MD MRN/PID: [id number] Supervising Physician: [id number] Shruti Flores MD Accession/Order#: [id number] Referring Physician: LUIS VEGA Date of : 1965 PCP: Gender: M Fellow: Height: 180.34 cm Nurse: Faina Moreira RN Weight: 113.85 kg Clutch Operator: N/A BSA: 2.32 m2 Technologist: BMI: 35.01 kg/m2 Additional Staff: Age: 57 years cc report to: Study Type: Cardiac Stress Test Diagnosis/ICD: I25.10-Atheroscleroti c heart disease; I21.09-ST elevation (STEMI) myocardial infarction involving other coronary artery of anterior wall Indication: STEMI Procedure/CPT: Stress Test Supervision-[id number] Falls Risk: Low: Patient has low risk [...] tolerance. 5. Recommend referral to cardiac rehab. [id number] Wendy Camp MD Electronically signed on 12/12/2022 at 3:55:12 PM Final Normal [facility] Cardiac Stress Test [facility] [address] DO Work Phone: LIPID PROFILEon 12-10-2022 CHOL-HDL RATIO NORM SEE BELOW Normal [facility] Comment on above: Result Comment: 3.3 - 4.4 LOW RISK 4.4 - 7.1 AVERAGE RISK 7.1 - 11.0 MODERATE RISK >11.0 HIGH RISK Performed By: #### A LT, LIPID, AST ####[facility] [address] [place] [id number]. Martin Mello Cholesterol [Mass/Vol] 87 mg/dL Normal <=200 [facility] Comment on above: Performed By: #### A LT, LIPID, AST ####[facility] [address] [place] [id number]. Martin Mello Cholesterol in HDL [Mass/Vol] 33 mg/dL Critically low 40-60 [facility] Comment on above: Performed By: #### A LT, LIPID, AST ####[facility] [address] [place] [id number]. Martin Mello Cholesterol in LDL [Mass/Vol] 45.2 mg/dL Normal [facility] Comment on above: Performed By: #### A LT, LIPID, AST ####[facility] [address] [place] [id number]. Martin Mello Cholesterol.total/Choles terol in HDL [Mass ratio] 2.6 {ratio} Normal [facility] Comment on above: Performed By: #### A LT, LIPID, AST ####[facility] [address] [place] [id number]. Martin Mello HDL NORMAL > or = 60 mg/dl - LO W CARDIOVASCULAR RISK <40 mg/dl - HIGH CARDIOVASCULAR RISK Normal [facility] Comment on above: Performed By: #### A LT, LIPID, AST ####[facility] [address] [place], [place] [address]Fo. Martin Mello LDL CALC NORMAL SEE BELOW Normal [facility] Comment on above: Result Comment: <100 mg/dl OPTIMAL 100 - 129 mg/dl NEAR OR ABOVE OPTIMAL 130 - 159 mg/dl BORDERLINE HIGH 160 - 189 mg/dl HIGH >190 mg/dl VERY HIGH Performed By: #### A LT, LIPID, AST ####[facility] [address] [place] [id number]. Martin Mello Triglyceride [Mass/Vol] 44 mg/dL Normal <=150 [facility] Comment on above: Performed By: #### A LT, LIPID, AST ####[facility] [address] [place] [id number]. Martin Mello VLDL CALC 8.8 mg/dL Normal [facility] Comment on above: Performed By: #### A LT, LIPID, AST ####[facility] [address] [place] [id number]. Martin Mello SGOTon 12-10-2022 AST [Catalytic activity/Vol] 16 U/L Normal 15-37 [facility] Comment on above: Performed By: #### A LT, LIPID, AST ####[facility] [address] [place] [id number]. Martin Mello SGPTon 12-10-2022 ALT [Catalytic activity/Vol] 30 U/L Normal 16-63 [facility] Comment on above: Performed By: #### A LT, LIPID, AST ####[facility] [address] [place] [id number]. Martin Mello GLYCOHEMOGLOBIN A1Con 2022 ADA RECOMMENDATION SEE BELOW Normal [facility] Comment on above: Result Comment: ADA RECOMMENDED LIMIT 4.0 - 6.0 ADA THERAPEUTIC TARGET < 7.0 ACTION SUGGESTED > 7.0 Performed By: #### A 1C #### [facility] [address] [place] [address] Dr. Martin Mello Glucose [Mass/Vol] 163 mg/dL Normal [facility] Comment on above: Performed By: #### A 1C #### [facility] [address] [place] [address] Dr. Martin Mello HbA1c (Bld) [Mass fraction] 7.3 % Critically high 4.5-6.2 [facility] Comment on above: Performed By: #### A 1C #### [facility] [address] [place] [address] Dr. Martin Mello PROF CHEM 8 (BAS METB)on Anion gap [Moles/Vol] 12.4 mmol/L Normal [facility] Comment on above: Performed By: #### B MP #### [facility] [address] [place] [address] Dr. Martin Mello Calcium [Mass/Vol] 9.2 mg/dL Normal 8.5-10.1 [facility] Comment on above: Performed By: #### B MP #### [facility] [address] [place] [address] Dr. Martin Mello Chloride [Moles/Vol] 102 mmol/L Normal 98-107 [facility] Comment on above: Performed By: #### B MP #### [facility] [address] [place] [address] Dr. Martin Mello CO2 [Moles/Vol] 26.6 mmol/L Normal 21.0-32.0 [facility] Comment on above: Performed By: #### B MP #### [facility] [address] [place] [address] Dr. Martin Mello Creatinine [Mass/Vol] 0.81 mg/dL Normal 0.70-1.30 [facility] Comment on above: Performed By: #### B MP #### [facility] [address] [place] [address] Dr. Martin Mello EGFR-AF CHINESE >60 Normal >=60 [facility] Comment on above: Performed By: #### B MP #### [facility] [address] [place] [address] [address] Martin Mello EGFR-NON AF CHINESE >60 Normal >=60 [facility] Comment on above: Performed By: #### B MP #### [facility] [address] [place] [address] [address] Martin Mello Glucose [Mass/Vol] 205 mg/dL Critically high 74-106 [facility] Comment on above: Performed By: #### B MP #### [facility] [address] [place] [address] [address] Martin Mello Potassium [Moles/Vol] 4.0 mmol/L Normal 3.5-5.1 [facility] Comment on above: Performed By: #### B MP #### [facility] [address] [place] [address] [address] Martin Mello Sodium [Moles/Vol] 137 mmol/L Normal 136-145 [facility] Comment on above: Performed By: #### B MP #### [facility] [address] [place] [address] [address] Martin Mello Urea nitrogen [Mass/Vol] 10.0 mg/dL Normal 7.0-18.0 [facility] Comment on above: Performed By: #### B MP #### [facility] [address] [place] [address] [address] Martin Mello Urea nitrogen/Creatinine [Mass ratio] 12.3 mg/mg Normal [facility] Comment on above: Performed By: #### B MP #### [facility] [address] [place] [address] [address] Martin Mello Tobacco Screening.on 023 Adult depression screening assessment No [facility] [address] DO Work Phone: [phone] risk assessment c) Not medically indicated [facility] [place] [address] [place] Work Phone: [phone] Tobacco use status CPHS b) No M [facility] [address] DO Work Phone: [phone] Anisocytosis LM Ql (Bld)Orde red By: Andrew Balbuena on 11-17-2022 Anisocytosis Ql (Bld) Moderate [facility] Basic Metabolic Panelon 11-05 Anion gap [Moles/Vol] 9.9 mmol/L Normal 6.0-15.0 [facility] Comment on above: Order Comment: FASTI NG Y Performed By: #### S CAN CBC, BMP, LIPID #### [facility] [address] Calcium [Mass/Vol] 8.8 mg/dL Normal 8.2-10.2 [facility] Comment on above: Order Comment: FASTI NG Y Performed By: #### S CAN CBC, BMP, LIPID #### [facility] [address] Chloride [Moles/Vol] 97 mmol/L Normal 95-114 [facility] Comment on above: Order Comment: FASTI NG Y Performed By: #### S CAN CBC, BMP, LIPID #### [facility] [address] [place] [address] CO2 [Moles/Vol] 27.1 mmol/L Normal 22.0-30.0 [facility] Comment on above: Order Comment: FASTI NG Y Performed By: #### S CAN CBC, BMP, LIPID #### [facility] [address] [place] [address] Creatinine [Mass/Vol] 0.96 mg/dL Normal 0.64-1.27 [facility] Comment on above: Order Comment: FASTI NG Y Performed By: #### S CAN CBC, BMP, LIPID #### [facility] [address] [place] [address] Creatinine Clr Calc Pharmacy 116.86 [facility] Comment on above: Order Comment: FASTI NG Y Performed By: #### S CAN CBC, BMP, LIPID #### [facility] [address] [place] [address] Estimated GFR ( Consuelo > 60 [facility] Comment on above: Order Comment: FASTI NG Y Result Comment: GFR estimated reference range: According to KDOQI guidelines, <60 ml/min/1.73m2 is sufficient to diagnose a patient with chronic kidney disease. Performed By: #### S CAN CBC, BMP, LIPID #### [facility] [address] [place] [address] [place] Estimated GFR (Non- Am > 60 [facility] Comment on above: Order Comment: FASTI NG Y Performed By: #### S CAN CBC, BMP, LIPID #### [facility] [address] [place] [address] [place] Glucose [Mass/Vol] 262 mg/dL High 70-100 [facility] Comment on above: Order Comment: FASTI NG Y Result Comment: [facility] Glucose Reference Range is dependent on time and content of last meal. Glucose of more than 200 mg/dL in a nonstressed, ambulatory subject supports the diagnosis of Diabetes Mellitus. ADA recommended reference range Performed By: #### S CAN CBC, BMP, LIPID #### [facility] [address] Potassium [Moles/Vol] 4.0 mmol/L Normal 3.5-5.1 [facility] Comment on above: Order Comment: FASTI NG Y Performed By: #### S CAN CBC, BMP, LIPID #### [facility] [address] [place] [address] [place] Sodium [Moles/Vol] 130 mmol/L Low 136-146 [facility] Comment on above: Order Comment: FASTI NG Y Performed By: #### S CAN CBC, BMP, LIPID #### [facility] [address] [place] [address] [place] Urea nitrogen [Mass/Vol] 14 mg/dL Normal 9-23 [facility] Comment on above: Order Comment: FASTI NG Y Performed By: #### S CAN CBC, BMP, LIPID #### [facility] [address] [place] [address] [place] Basophils Auto (Bld) [#/Vol] Ordered By: Andrew Balbuena on 11-17-2022 Basophils (Bld) [#/Vol] 0.1 10*3/uL 0.0-0.2 [facility] Basophils/100 WBC Auto (Bld) Ordered By: Andrew Balbuena on 11-17-2022 Basophils/100 WBC (Bld) 0.6 % . [facility] Cholesterol [Mass/volume] in Serum or PlasmaOrdered By: Wendy Camp on 11-17-2022 Cholesterol [Mass/Vol] 107 mg/dL 140-200 [facility] Comment on above: Chol less than 200 m g/dl low riskChol 201-239 mg/dl borderline riskChol 240 mg/dl and greater high risk Cholesterol in LDL Calc [Mas s/Vol]Ordered By: Wendy Camp on 11-17-2022 Cholesterol in LDL [Mass/Vol] 69 mg/dL 0-100 [facility] Comment on above: LDL ATP III CLASSIFI CATIONLDL less than 100 mg/dL OptimalLDL 100-129 mg/dL Near or above optimalLDL 130-159 mg/dL Borderline highLDL 160-189 mg/dL HighLDL greater than 189 mg/dL Very high Cholesterol in VLDL Calc [Ma ss/Vol]Ordered By: Wendy Camp on 11-17-2022 Cholesterol in VLDL [Mass/Vol] 11 mg/dL [facility] Creatinine and Glomerular fi ltration rate.predicted panel (S/P/Bld)Ordered By: Andrew Balbuena on 11-17-2022 Creatinine [Mass/Vol] 0.96 mg/dL 0.64-1.27 [facility] ECH echo transthoracicon ECH echo transthoracic [facility] [place] [address] Echocardiogram Signed Patient: Carson Mendoza MR#: [id number] : 1965 Acct:[id number] Age/Sex: 57 / M ADM Date: 11/15/22 Loc: Room: [address] [place] [address] Type: ADM IN Attending Dr: Andrew Balbuena MD Ordering Provider: Andrew Balbuena MD Date of Service: 11/16/2209/26/500 ECH/ECH echo transthoracic: ANTERIOR STEMI Copies to: Israel Funez MD, [facility] Andrew Balbuena MD BSA: 2.5 m2 BP: [...] 11/17/22 0948 Signed By: Israel Funez MD, [facility] 11/17/22 1052 Normal [facility] Eosinophils Auto (Bld) [#/Vo l]Ordered By: Andrew Balbuena on 11-17-2022 Eosinophils (Bld) [#/Vol] 0.2 10*3/uL 0.0-0.45 [facility] Eosinophils/100 WBC Auto (Bl d)Ordered By: Andrew Balbuena on 11-17-2022 Eosinophils/100 WBC (Bld) 1.3 % . [facility] Erythrocyte distribution wid th Auto (RBC) [Ratio]Ordered By: Andrew Balbuena on 11-17-2022 Erythrocyte distribution width (RBC) [Ratio] 14.2 % 12.0-14.8 [facility] Estimated glomerular filtrat ion rate (GFR) non- AmericanOrdered By: Andrew Balbuena on 11-17-2022 GFR/1.73 sq M.predicted among non-blacks MDRD (S/P/Bld) [Vol rate/Area] > 60 mL/Min [facility] Hematocrit Auto (Bld) [Volum e fraction]Ordered By: Andrew Balbuena on 11-17-2022 Hematocrit (Bld) [Volume fraction] 43.1 % 38.8-50.0 [facility] Hemoglobin [Mass/volume] in BloodOrdered By: Andrew Balbuena on 11-17-2022 Hemoglobin (Bld) [Mass/Vol] 14.9 g/dL 13.0-17.0 [facility] Leukocytes [#/volume] correc nunu for nucleated erythrocytes in Blood by Automated counOrdered By: Andrew Balbuena on 11-17-2022 WBC corrected for nucl RBC Auto (Bld) [#/Vol] 14.0 10*3/uL 4.1-10.5 [facility] Lipid Panelon 11-17-2022 Cholesterol [Mass/Vol] 107 mg/dL Low 140-200 [facility] Comment on above: Order Comment: YOMI Daniels Result Comment: Chol less than 200 mg/dl low risk Chol 201-239 mg/dl borderline risk Chol 240 mg/dl and greater high risk Performed By: #### S CAN CBC, CMP, HS TROP #### [facility] [address] Cholesterol in HDL [Mass/Vol] 26 mg/dL Low 29-71 [facility] Comment on above: Order Comment: YOMI Daniels Result Comment: HDL CHOL ATP-III CLASSIFICATION Cardiovascular Risk HDL > or equal to 60 mg/dL LOW HDL < 40 mg/dL HIGH Performed By: #### S CAN CBC, CMP, HS TROP #### [facility] [address] Cholesterol.total/Choles terol in HDL [Mass ratio] 4.1 {ratio} Normal <5.0 [facility] Comment on above: Order Comment: YOMI Daniels Result Comment: PERF ORMED BY: [place] [address] PATHOLOGIST FINE DINING SERVER JANIYA SERRANO M.D. Performed By: #### S CAN CBC, CMP, HS TROP #### [facility] [address] LDL Cholesterol,Calculated 69 mg/dL Normal 0-100 [facility] Comment on above: Order Comment: YOMI Daniels Result Comment: LDL ATP III CLASSIFICATION LDL less than 100 mg/dL Optimal LDL 100-129 mg/dL Near or above optimal LDL 130-159 mg/dL Borderline high LDL 160-189 mg/dL High LDL greater than 189 mg/dL Very high Performed By: #### S CAN CBC, CMP, HS TROP #### [address] Triglyceride w/Reflex 59 mg/dL Normal 35-149 [facility] Comment on above: Order Comment: YOMI Daniels Result Comment: TRIG ATP III CLASSIFICATION TRIG less than 150 mg/dL Normal TRIG 150-199 mg/dL Borderline high TRIG 200-500 mg/dL High TRIG greater than 500 mg/dL Very high Standard traceable to the Center for Disease Conrtrol and Prevention (CDC) test method. Performed By: #### S CAN CBC, CMP, HS TROP #### [facility] [address] [place] [address] VLDL CHOLESTEROL 11 mg/dL Normal [facility] Comment on above: Order Comment: YOMI Daniels Performed By: #### S CAN CBC, CMP, HS TROP #### [facility] [address] [place] [address] [place] Lymphocytes Auto (Bld) [#/Vo l]Ordered By: Andrew Balbuena on 11-17-2022 Lymphocytes (Bld) [#/Vol] 2.9 10*3/uL 1.00-4.8 [facility] Lymphocytes/100 WBC Auto (Bl d)Ordered By: Andrew Balbuena on 11-17-2022 Lymphocytes/100 WBC (Bld) 20.9 % . [facility] MCH Auto (RBC) [Entitic mass ]Ordered By: Andrew Balbuena on 11-17-2022 MCH (RBC) [Entitic mass] 27.8 pg 27.5-35.2 [facility] MCHC Auto (RBC) [Mass/Vol]Or dered By: Andrew Balbuena on 11-17-2022 MCHC (RBC) [Mass/Vol] 34.6 g/dL 32.5-35.6 [facility] MCV Auto (RBC) [Entitic vol] Ordered By: Andrew Balbuena on 11-17-2022 MCV (RBC) [Entitic vol] 80.4 fL 83.5-101 F [facility] Microcytes LM Ql (Bld)Ordere d By: Andrew Balbuena on 11-17-2022 Microcytes Ql (Bld) Moderate [facility] Monocytes Auto (Bld) [#/Vol] Ordered By: Andrew Balbuena on 11-17-2022 Monocytes (Bld) [#/Vol] 1.6 10*3/uL 0.0-0.8 [facility] Monocytes/100 WBC Auto (Bld) Ordered By: Andrew Balbuena on 11-17-2022 Monocytes/100 WBC (Bld) 11.8 % . F [facility] Neutrophils Auto (Bld) [#/Vo l]Ordered By: Andrew Balbuena on 11-17-2022 Neutrophils (Bld) [#/Vol] 9.1 10*3/uL 1.8-7.7 [facility] Neutrophils/100 WBC Auto (Bl d)Ordered By: Andrew Balbuena on 11-17-2022 Neutrophils/100 WBC (Bld) 65.4 % . [facility] No Panel InformationOrdered By: Andrew Balbuena on 11-17-2022 Estimated GFR () > 60 mL/Min [facility] Comment on above: GFR estimated refere nce range: According to KDOQI guidelines, <60 ml/min/1.73m2 is sufficient to diagnose a patient with chronic kidney disease. Pharmacy Creatinine Clearance (Chem 116.86 [facility] Nucleated erythrocytes [Pres ence] in Blood by Automated countOrdered By: Andrew Balbuena on 11-17-2022 Nucleated RBC Auto Ql (Bld) 0.1 /100{WBC} 0-0.5 [facility] Platelet adequacy [Presence] in Blood by Light microscopyOrdered By: Andrew Balbuena on 11-17-2022 Platelets LM Ql (Bld) Normal Normal [facility] Platelet mean volume Auto (B ld) [Entitic vol]Ordered By: Andrew Balbuena on 11-17-2022 Platelet mean volume (Bld) [Entitic vol] 7.9 fL 6.6-10.1 [facility] Platelet morphology finding [Identifier] in BloodOrdered By: Andrew Balbuena on 11-17-2022 Platelet morphology finding Nom (Bld) Normal Normal [facility] Platelets Auto (Bld) [#/Vol] Ordered By: Andrew Balbuena on 11-17-2022 Platelets (Bld) [#/Vol] 347 10*3/uL 150-450 [facility] RBC Auto (Bld) [#/Vol]Ordere d By: Andrew Balbuena on 11-17-2022 RBC (Bld) [#/Vol] 5.36 10*6/uL 3.90-5.60 [facility] RBC morphologyOrdered By: St dsetini Balbuena on 11-17-2022 RBC morphology finding Nom (Bld) N/A [facility] Scan and CBCon 11-17-2022 Anisocytosis Ql (Bld) Moderate Normal [facility] Comment on above: Performed By: #### S CAN CBC, CMP, HS TROP #### [facility] [address] [place] [address] [place] Basophils (Bld) [#/Vol] 0.1 10*3/uL Normal 0.0-0.2 [facility] Comment on above: Performed By: #### S CAN CBC, CMP, HS TROP #### [facility] [address] [place] [address] [place] Basophils/100 WBC (Bld) 0.6 % Normal . F [facility] Comment on above: Performed By: #### S CAN CBC, CMP, HS TROP #### [facility] [address] [place] [address] [place] Eosinophils (Bld) [#/Vol] 0.2 10*3/uL Normal 0.0-0.45 [facility] Comment on above: Performed By: #### S CAN CBC, CMP, HS TROP #### [facility] [address] [place] [address] [place] Eosinophils/100 WBC (Bld) 1.3 % Normal . [facility] Comment on above: Performed By: #### S CAN CBC, CMP, HS TROP #### [facility] [address] [place] [address] Erythrocyte distribution width (RBC) [Ratio] 14.2 % Normal 12.0-14.8 [facility] Comment on above: Performed By: #### S CAN CBC, CMP, HS TROP #### [address] Hematocrit (Bld) [Volume fraction] 43.1 % Normal 38.8-50.0 [facility] Comment on above: Performed By: #### S CAN CBC, CMP, HS TROP #### [address] Hemoglobin (Bld) [Mass/Vol] 14.9 g/dL Normal 13.0-17.0 [facility] Comment on above: Performed By: #### S CAN CBC, CMP, HS TROP #### [place] [address] [place] Lymphocytes (Bld) [#/Vol] 2.9 10*3/uL Normal 1.00-4.8 [facility] Comment on above: Performed By: #### S CAN CBC, CMP, HS TROP #### [place] [address] [place] Lymphocytes/100 WBC (Bld) 20.9 % Normal . [facility] Comment on above: Performed By: #### S CAN CBC, CMP, HS TROP #### [address] [facility] (RBC) [Entitic mass] 27.8 pg Normal 27.5-35.2 [facility] Comment on above: Performed By: #### S CAN CBC, CMP, HS TROP #### [facility] [address] [place] [address] [place] MCV (RBC) [Entitic vol] 80.4 fL Low 83.5-101 F [facility] Comment on above: Performed By: #### S CAN CBC, CMP, HS TROP #### [facility] [address] Mean Corpuscular HGB Conc 34.6 g/dL Normal 32.5-35.6 [facility] Comment on above: Performed By: #### S CAN CBC, CMP, HS TROP #### [facility] [address] Microcytosis Moderate Normal [facility] Comment on above: Performed By: #### S CAN CBC, CMP, HS TROP #### [facility] [address] [place] [address] [place] Monocytes (Bld) [#/Vol] 1.6 10*3/uL High 0.0-0.8 [facility] Comment on above: Performed By: #### S CAN CBC, CMP, HS TROP #### [facility] [address] [place] [address] [place] Monocytes/100 WBC (Bld) 11.8 % Normal . F [facility] Comment on above: Performed By: #### S CAN CBC, CMP, HS TROP #### [facility] [address] [place] [address] [place] Neutrophils (Bld) [#/Vol] 9.1 10*3/uL High 1.8-7.7 [facility] Comment on above: Performed By: #### S CAN CBC, CMP, HS TROP #### [facility] [address] [place] [address] [place] Neutrophils/100 WBC (Bld) 65.4 % Normal . [facility] Comment on above: Performed By: #### S CAN CBC, CMP, HS TROP #### [facility] [address] [place] [address] [place] NRBC% 0.1 /100{WBC} Normal 0-0.5 [facility] Comment on above: Performed By: #### S CAN CBC, CMP, HS TROP #### [facility] [address] [place] [address] Platelet Estimate Normal Normal Normal [facility] Comment on above: Performed By: #### S CAN CBC, CMP, HS TROP #### [facility] [address] Platelet mean volume (Bld) [Entitic vol] 7.9 fL Normal 6.6-10.1 [facility] Comment on above: Performed By: #### S CAN CBC, CMP, HS TROP #### [facility] [address] Platelet Morphology Normal Normal Normal [facility] Comment on above: Result Comment: PERF ORMED BY: [place] [address] PATHOLOGIST FINE DINING SERVER JANIYA SERRANO M.D. Performed By: #### S CAN CBC, CMP, HS TROP #### [address] Platelets (Bld) [#/Vol] 347 10*3/uL Normal 150-450 [facility] Comment on above: Performed By: #### S CAN CBC, CMP, HS TROP #### [address] RBC (Bld) [#/Vol] 5.36 10*6/uL Normal 3.90-5.60 [facility] Comment on above: Performed By: #### S CAN CBC, CMP, HS TROP #### [address] WBC (Bld) [#/Vol] 14.0 10*3/uL High 4.1-10.5 [facility] Comment on above: Performed By: #### S CAN CBC, CMP, HS TROP #### [facility] [address] [place] [address] Serum or plasma anion gap de terminationOrdered By: Andrew Balbuena on 11-17-2022 Anion gap [Moles/Vol] 9.9 mmol/L 6.0-15.0 [facility] Serum or plasma calcium eva urement (mass/volume)Ordered By: Andrew Balbuena on 11-17-2022 Calcium [Mass/Vol] 8.8 mg/dL 8.2-10.2 [facility] Serum or plasma chloride caleb surement (moles/volume)Ordered By: Andrew Balbuena on 11-17-2022 Chloride [Moles/Vol] 97 mmol/L 95-114 [facility] Serum or plasma glucose eva urement (mass/volume)Ordered By: Andrew Balbuena on 11-17-2022 Glucose [Mass/Vol] 262 mg/dL 70-100 [facility] Comment on above: ADA recommended refe rence rangeRandom Glucose Reference Range is dependent on time and content of last meal. Glucose of more than 200 mg/dL in a nonstressed, ambulatory subject supports the diagnosis of Diabetes Mellitus. Serum or plasma high density lipoprotein (HDL) cholesterol measurementOrdered By: Wendy Camp on 11-17-2022 Cholesterol in HDL [Mass/Vol] 26 mg/dL 29-71 [facility] Comment on above: HDL CHOL ATP-III CLA SSIFICATION Cardiovascular RiskHDL > or equal to 60 mg/dL LOWHDL < 40 mg/dL HIGH Serum or plasma potassium me asurement (moles/volume)Ordered By: Andrew Balbuena on 11-17-2022 Potassium [Moles/Vol] 4.0 mmol/L 3.5-5.1 [facility] Serum or plasma sodium measu rement (moles/volume)Ordered By: Andrew Balbuena on 11-17-2022 Sodium [Moles/Vol] 130 mmol/L 136-146 [facility] Serum or plasma total carbon dioxide measurement (moles/volume)Ordered By: Andrew Balbuena on 11-17-2022 CO2 [Moles/Vol] 27.1 mmol/L 22.0-30.0 [facility] Serum or plasma total choles terol/high density lipoprotein (HDL) cholesterol mass ratOrdered By: Wendy Camp on 11-17-2022 Cholesterol.total/Choles terol in HDL [Mass ratio] 4.1 {ratio} <5.0 [facility] Serum or plasma urea nitroge n measurement (mass/volume)Ordered By: Andrew Balbuena on 11-17-2022 Urea nitrogen [Mass/Vol] 14 mg/dL 9- [facility] Triglyceride [Mass/volume] i n Serum or PlasmaOrdered By: Wendy Camp on 11-17-2022 Triglyceride [Mass/Vol] 59 mg/dL 35-149 F [facility] Comment on above: TRIG ATP III CLASSIF ICATIONTRIG less than 150 mg/dL NormalTRIG 150-199 mg/dL Borderline highTRIG 200-500 mg/dL High TRIG greater than 500 mg/dL Very highStandard traceable to the Center for Disease Conrtrol and Prevention (CDC) test method. WBC Auto (Bld) [#/Vol]Ordere d By: Andrew Balbuena on 11-17-2022 WBC (Bld) [#/Vol] 14.0 10*3/uL 4.1-10.5 [facility] Body fluid albumin measureme nt (mass/volume)Ordered By: Andrew Balbuena on 11-16-2022 Albumin (Body fld) [Mass/Vol] 3.3 g/dL 3.2-5.5 [facility] Comprehensive Metabolic Pane юлия 11-16-2022 Albumin [Mass/Vol] 3.3 g/dL Normal 3.2-5.5 [facility] Comment on above: Performed By: #### S CAN CBC, CMP, HS TROP #### [facility] [address] [place] [address] [place] Albumin/Globulin [Mass ratio] 0.9 {ratio} Normal [facility] Comment on above: Performed By: #### S CAN CBC, CMP, HS TROP #### [facility] [address] [place] [address] [place] ALP [Catalytic activity/Vol] 70 U/L Normal 32-92 [facility] Comment on above: Performed By: #### S CAN CBC, CMP, HS TROP #### [facility] [address] [place] [address] [place] ALT [Catalytic activity/Vol] 34 U/L Normal 10-60 [facility] Comment on above: Performed By: #### S CAN CBC, CMP, HS TROP #### [facility] [address] [place] [address] [place] Anion gap [Moles/Vol] 11.5 mmol/L Normal 6.0-15.0 [facility] Comment on above: Performed By: #### S CAN CBC, CMP, HS TROP #### [facility] [address] [place] [address] [place] AST [Catalytic activity/Vol] 78 U/L High 10-42 [facility] Comment on above: Performed By: #### S CAN CBC, CMP, HS TROP #### [facility] [address] [place] [address] [place] Bilirubin [Mass/Vol] 2.4 mg/dL High 0.3-1.2 [facility] Comment on above: Result Comment: Samp les from patients who have taken Naproxen have shown spurious elevation in Total Bilirubin levels. A metabolite of Naproxen, O-desmethylnaproxen, has been shown to interfere with the Jendrassik-Grof method for measuring Total Bilirubin. Performed By: #### S CAN CBC, CMP, HS TROP #### [facility] [address] [place] [address] [place] Calcium [Mass/Vol] 8.8 mg/dL Normal 8.2-10.2 [facility] Comment on above: Performed By: #### S CAN CBC, CMP, HS TROP #### [facility] [address] [place] [id number] [place] Chloride [Moles/Vol] 97 mmol/L Normal 95-114 [facility] Comment on above: Performed By: #### S CAN CBC, CMP, HS TROP #### [facility] [address] [place] [id number] [place] CO2 [Moles/Vol] 24.0 mmol/L Normal 22.0-30.0 [facility] Comment on above: Performed By: #### S CAN CBC, CMP, HS TROP #### [facility] [address] [place] [id number] [place] Creatinine [Mass/Vol] 0.84 mg/dL Normal 0.64-1.27 [facility] Comment on above: Performed By: #### S CAN CBC, CMP, HS TROP #### [facility] [address] Creatinine Clr Calc Pharmacy 133.78 [facility] Comment on above: Result Comment: PERF ORMED BY: [place] [address] PATHOLOGIST FINE DINING SERVER JANIYA SERRANO M.D. Performed By: #### S CAN CBC, CMP, HS TROP #### [facility] [address] Estimated GFR ( Consuelo > 60 [facility] Comment on above: Result Comment: GFR estimated reference range: According to KDOQI guidelines, <60 ml/min/1.73m2 is sufficient to diagnose a patient with chronic kidney disease. Performed By: #### S CAN CBC, CMP, HS TROP #### [facility] [address] [place] [address] Estimated GFR (Non- Am > 60 [facility] Comment on above: Performed By: #### S CAN CBC, CMP, HS TROP #### [facility] [address] [place] [address] Globulin (S) [Mass/Vol] 3.8 g/dL Normal [facility] Comment on above: Performed By: #### S CAN CBC, CMP, HS TROP #### [facility] [address] [place] [address] Glucose [Mass/Vol] 231 mg/dL High 70-100 [facility] Comment on above: Result Comment: [facility] Glucose Reference Range is dependent on time and content of last meal. Glucose of more than 200 mg/dL in a nonstressed, ambulatory subject supports the diagnosis of Diabetes Mellitus. ADA recommended reference range Performed By: #### S CAN CBC, CMP, HS TROP #### [facility] [address] [place] [address] Potassium [Moles/Vol] 3.5 mmol/L Normal 3.5-5.1 [facility] Comment on above: Performed By: #### S CAN CBC, CMP, HS TROP #### [facility] [address] [place] [address] [place] Protein [Mass/Vol] 7.1 g/dL Normal 6.1-7.9 [facility] Comment on above: Performed By: #### S CAN CBC, CMP, HS TROP #### [facility] [address] [place] [address] [place] Sodium [Moles/Vol] 129 mmol/L Low 136-146 [facility] Comment on above: Performed By: #### S CAN CBC, CMP, HS TROP #### [facility] [address] [place] [address] [facility] Urea nitrogen [Mass/Vol] 10 mg/dL Normal 06-27 [facility] Comment on above: Performed By: #### S CAN CBC, CMP, HS TROP #### [facility] [address] [place] [id number] [facility] ECG 12 lead ECGon 11-16-2022 ECG 12 lead ECG [facility] [place] [address] [place] [address] Electrocardiograph Report Signed Patient: Carson Mendoza MR#: [id number] : 1965 Acct:[id number] Age/Sex: 57 / M ADM Date: 11/15/22 Loc: Room: [address] [place] [address] Type: ADM IN Attending Dr: Andrew Balbuena [...] ECGs available Confirmed by DOMI KELLEY, WENDY ([facility]) on 11/16/2022 11:15:53 AM Referred By: Andrew Tann Electronically Signed By:WENDY CAMP MD Transcribed By: MUS Signed By Wendy Camp MD 0 11/16/22 1115 Normal [facility] Globulin Calc (S) [Mass/Vol] Ordered By: Andrew Balbuena on 11-16-2022 Globulin (S) [Mass/Vol] 3.8 g/dL F [facility] Polychromasia [Presence] in Blood by Light microscopyOrdered By: Andrew Balbuena on 11-16-2022 Polychromasia LM Ql (Bld) Slight [facility] Protein [Mass/volume] in Ser um or PlasmaOrdered By: Andrew Balbuena on 11-16-2022 Protein [Mass/Vol] 7.1 g/dL 6.1-7.9 [facility] Scan and CBCon 11-16-2022 Basophils (Bld) [#/Vol] 0.1 10*3/uL Normal 0.0-0.2 [facility] Comment on above: Performed By: #### S CAN CBC, CMP, HS TROP #### [facility] [address] [place] [address] [place] Basophils/100 WBC (Bld) 0.5 % Normal . F [facility] Comment on above: Performed By: #### S CAN CBC, CMP, HS TROP #### [facility] [address] [place] [address] [place] Eosinophils (Bld) [#/Vol] 0.1 10*3/uL Normal 0.0-0.45 [facility] Comment on above: Performed By: #### S CAN CBC, CMP, HS TROP #### [facility] [address] [place] [id number] [place] Eosinophils/100 WBC (Bld) 0.6 % Normal . [facility] Comment on above: Performed By: #### S CAN CBC, CMP, HS TROP #### [facility] [address] [place] [address] [place] Erythrocyte distribution width (RBC) [Ratio] 14.3 % Normal 12.0-14.8 [facility] Comment on above: Performed By: #### S CAN CBC, CMP, HS TROP #### [facility] [address] Hematocrit (Bld) [Volume fraction] 41.9 % Normal 38.8-50.0 [facility] Comment on above: Performed By: #### S CAN CBC, CMP, HS TROP #### [facility] [address] Hemoglobin (Bld) [Mass/Vol] 14.7 g/dL Normal 13.0-17.0 [facility] Comment on above: Performed By: #### S CAN CBC, CMP, HS TROP #### [facility] [address] Lymphocytes (Bld) [#/Vol] 3.4 10*3/uL Normal 1.00-4.8 [facility] Comment on above: Performed By: #### S CAN CBC, CMP, HS TROP #### [facility] [address] [place] [address] Lymphocytes/100 WBC (Bld) 20.4 % Normal . [facility] Comment on above: Performed By: #### S CAN CBC, CMP, HS TROP #### [facility] [address] MCH (RBC) [Entitic mass] 27.9 pg Normal 27.5-35.2 [facility] Comment on above: Performed By: #### S CAN CBC, CMP, HS TROP #### [facility] [address] [place] [address] MCV (RBC) [Entitic vol] 79.4 fL Low 83.5-101 F [facility] Comment on above: Performed By: #### S CAN CBC, CMP, HS TROP #### [facility] [address] Mean Corpuscular HGB Conc 35.1 g/dL Normal 32.5-35.6 [facility] Comment on above: Performed By: #### S CAN CBC, CMP, HS TROP #### [facility] [address] [place] [address] [place] Monocytes (Bld) [#/Vol] 1.7 10*3/uL High 0.0-0.8 [facility] Comment on above: Performed By: #### S CAN CBC, CMP, HS TROP #### [facility] [address] [place] [address] [place] Monocytes/100 WBC (Bld) 10.5 % Normal . F [facility] Comment on above: Performed By: #### S CAN CBC, CMP, HS TROP #### [facility] [address] Neutrophils (Bld) [#/Vol] 11.3 10*3/uL High 1.8-7.7 [facility] Comment on above: Performed By: #### S CAN CBC, CMP, HS TROP #### [facility] [address] [place] [address] Neutrophils/100 WBC (Bld) 68.0 % Normal . [facility] Comment on above: Performed By: #### S CAN CBC, CMP, HS TROP #### [facility] [address] [place] [address] NRBC% 0.5 /100{WBC} Normal 0-0.5 [facility] Comment on above: Performed By: #### S CAN CBC, CMP, HS TROP #### [facility] [address] [place] [address] Platelet Estimate Normal Normal Normal [facility] Comment on above: Performed By: #### S CAN CBC, CMP, HS TROP #### [facility] [address] [place] [address] Platelet mean volume (Bld) [Entitic vol] 7.8 fL Normal 6.6-10.1 [facility] Comment on above: Performed By: #### S CAN CBC, CMP, HS TROP #### [facility] [address] [place] [address] Platelet Morphology Normal Normal Normal [facility] Comment on above: Result Comment: PERF ORMED BY: [place] [address] PATHOLOGIST FINE DINING SERVER JANIYA SERRANO M.D. Performed By: #### S CAN CBC, CMP, HS TROP #### [facility] [address] [place] [address] [place] Platelets (Bld) [#/Vol] 357 10*3/uL Normal 150-450 [facility] Comment on above: Performed By: #### S CAN CBC, CMP, HS TROP #### [facility] [address] Polychromasia Slight Normal [facility] Comment on above: Performed By: #### S CAN CBC, CMP, HS TROP #### [facility] [address] RBC (Bld) [#/Vol] 5.28 10*6/uL Normal 3.90-5.60 [facility] Comment on above: Performed By: #### S CAN CBC, CMP, HS TROP #### [facility] [address] RBC morphology finding Nom (Bld) Normal Normal Normal [facility] Comment on above: Performed By: #### S CAN CBC, CMP, HS TROP #### [facility] [address] WBC (Bld) [#/Vol] 16.6 10*3/uL High 4.1-10.5 [facility] Comment on above: Performed By: #### S CAN CBC, CMP, HS TROP #### [facility] [address] Serum or plasma alanine urias otransferase measurement without P-5'-P (enzymatic activiOrdered By: Andrew Balbuena on 11-16-2022 ALT No additional P-5'-P [Catalytic activity/Vol] 34 U/L 10-60 [facility] Serum or plasma albumin/glob ulin mass ratioOrdered By: Andrew Balbuena on 11-16-2022 Albumin/Globulin [Mass ratio] 0.9 {ratio} [facility] Serum or plasma alkaline yoni sphatase measurement (enzymatic activity/volume)Ordered By: Andrew Balbuena on 11-16-2022 ALP [Catalytic activity/Vol] 70 U/L 32-92 [facility] Serum or plasma aspartate am inotransferase measurement (enzymatic activity/volume)Ordered By: Andrew Balbuena on 11-16-2022 AST [Catalytic activity/Vol] 78 U/L 10-42 [facility] Serum or plasma total biliru bin measurement (mass/volume)Ordered By: Andrew Balbuena on 11-16-2022 Bilirubin [Mass/Vol] 2.4 mg/dL 0.3-1.2 [facility] Comment on above: Samples from patient s who have taken Naproxen have shown spurious elevation in Total Bilirubin levels. A metabolite of Naproxen, O-desmethylnaproxen, has been shown to interfere with the Todik-Lazaro method for measuring Total Bilirubin. Troponin I High Sensitivityo n 11-16-2022 Troponin I High Sensitivity 25037 pg/mL Off scale high 0-20 [facility] Comment on above: Result Comment: Resu lts called at 0512 on 11/16/22 PERFORMED BY: [place] [address] PATHOLOGIST FINE DINING SERVER JANIYA SERRANO M.D. Performed By: #### S CAN CBC, CMP, HS TROP #### [facility] [address] Troponin I.cardiac [Mass/vol ume] in Serum or Plasma by High sensitivity methodOrdered By: Andrew Balbuena on 11-16-2022 Troponin I.cardiac High sensitivity method [Mass/Vol] 06351 pg/mL 0-20 [facility] Comment on above: Results calledat 051 2 on 11/16/22 BNPon 11-15-2022 Natriuretic peptide B (Bld) [Mass/Vol] 2281.0 pg/mL Critically high <=900.0 [facility] Comment on above: Performed By: #### B ESTHETICIAN AND MANAGER MEDICAL SPA, CMADM, CMP #### [facility] [address] [place], [place] [address] Dr. Martin Mello CARDIAC ANICETO ADMITon 023 CK [Catalytic activity/Vol] 705 U/L Critically high 39-308 [facility] Comment on above: Performed By: #### B ESTHETICIAN AND MANAGER MEDICAL SPA, CMADM, CMP ####[facility] [address] [place], [place] [address]Hq. Martin Mello CK.MB [Mass/Vol] 33.94 ng/mL Critically high <=3.60 [facility] Comment on above: Performed By: #### B ESTHETICIAN AND MANAGER MEDICAL SPA, CMADM, CMP ####[facility] [address] [place] [address]DrSharad Mello HSTROP 988[address].6 pg/mL Critically high 4.0-76.1 [facility] Comment on above: Result Comment: CUT- OFF POINTS HAVE BEEN ESTABLISHED BASED ON THE FOURTH UNIVERSAL DEFINITIONS OF MYOCARDIAL INFARCTION. THE UPPER REFERENCE LIMIT (URL) OF TROPONIN, DEFINED THE 99TH PERCENTILE OF cTnI DISTRIBUTION IN A REFERENCE POPULATION, HAS BEEN CONFIRMED THE DECISION THRESHOLD FOR [place] DIAGNOSIS. Performed By: #### B ESTHETICIAN AND MANAGER MEDICAL SPA, CMADM, CMP ####[facility] [address] [place] [address]DrSharad Mello MARKELL 458 ng/mL Critically high 16-96 [facility] Comment on above: Performed By: #### B ESTHETICIAN AND MANAGER MEDICAL SPA, CMADM, CMP ####[facility] [address] [place] [address]DrSharad Mello CBC AUTO DIFFon 11-15-2022 BASO # 0.1 103/ul Normal 0.0-0.1 [facility] Comment on above: Performed By: #### C BC #### [facility] [address] [place] [address] [address] Martin Mello Basophils/100 WBC (Bld) 0.5 % Normal 0.2-2.0 [facility] Comment on above: Performed By: #### C BC #### [facility] [address] [place] [address] [address] Martin Mello EO # 0.1 103/ul Normal 0.0-0.7 [facility] Comment on above: Performed By: #### C BC #### [facility] [address] [place] [address] [address] Martin Mello Eosinophils/100 WBC (Bld) 0.3 % Critically low 0.9-7.0 [facility] Comment on above: Performed By: #### C BC #### [facility] [address] [place] [address] Dr. Martin Mello Erythrocyte distribution width (RBC) [Ratio] 13.3 % Normal 11.0-15.0 [facility] Comment on above: Performed By: #### C BC #### [facility] [address] [place] [address] Dr. Martin Mello Hematocrit (Bld) [Volume fraction] 44.1 % Normal 42.0-54.0 [facility] Comment on above: Performed By: #### C BC #### [facility] [address] [place] [address] Dr. Martin Mello Hemoglobin (Bld) [Mass/Vol] 16.0 g/dL Normal 14.0-18.0 [facility] Comment on above: Performed By: #### C BC #### [facility] [address] [place] [address] Dr. Martin Mello IG # 0.11 10e3/ul Critically high 0.00-0.03 [facility] Comment on above: Performed By: #### C BC #### [facility] [address] [place] [address] Dr. Martin Mello IG % 0.7 % Critically high 0.0-0.5 [facility] Comment on above: Performed By: #### C BC #### [facility] [address] [place] [address] Dr. Martin Mello LYMPH # 2.1 103/ul Normal 1.2-3.8 [facility] Comment on above: Performed By: #### C BC #### [facility] [address] [place] [address] Dr. Martin Mello Lymphocytes/100 WBC (Bld) 12.4 % Critically low 20.5-60.0 [facility] Comment on above: Performed By: #### C BC #### [facility] [address] [place] [address] Dr. Martin Mello MANUAL DIFF REQ NO Normal [facility] Comment on above: Performed By: #### C BC #### [facility] [address] [place] [address] Dr. Martin Mello MCH (RBC) [Entitic mass] 28.1 pg Normal 25.9-34.0 [facility] Comment on above: Performed By: #### C BC #### [facility] [address] [place] [address] [address] Martin Mello MCHC (RBC) [Mass/Vol] 36.3 g/dL Critically high 29.9-35.2 [facility] Comment on above: Performed By: #### C BC #### [facility] [address] [place] [address] Dr. Martin Mello MCV (RBC) [Entitic vol] 77.5 fL Critically low 80.0-94. 0 [facility] Comment on above: Performed By: #### C BC #### [facility] [address] [place] [address] Dr. Martin Mello MONO # 1.0 103/ul Critically high 0.3-0.8 [facility] Comment on above: Performed By: #### C BC #### [facility] [address] [place] [address] Dr. Martin Mello Monocytes/100 WBC (Bld) 6.0 % Normal 1.7-12.0 [facility] Comment on above: Performed By: #### C BC #### [facility] [address] [place] [address] Dr. Martin Mello NEUT # 13.3 103/ul Critically high 1.4-6.5 [facility] Comment on above: Performed By: #### C BC #### [facility] [address] [place] [address] Dr. Martin Mello Neutrophils/100 WBC (Bld) 80.1 % Critically high 43.0-75.0 [facility] Comment on above: Performed By: #### C BC #### [facility] [address] [place] [address] Dr. Martin Mello Platelet mean volume (Bld) [Entitic vol] 9.3 fL Critically low 9.5-13.5 [facility] Comment on above: Performed By: #### C BC #### [facility] [address] [address] [address] Martin Mello PLT 375 103/ul Normal 150-450 [facility] Comment on above: Performed By: #### C BC #### [facility] [address] [place] [address] Dr. Martin Mello RBC 5.69 106/ul Normal 4.70-6.10 [facility] Comment on above: Performed By: #### C BC #### [facility] [address] [address] [address] Martin Mello WBC 16.6 103/ul Critically high 4.0-11.0 [facility] Comment on above: Performed By: #### C BC #### [facility] [address] [place] [address] Dr. Martin Mello Covid-19 PCR (CVDTB)on 11-05 SARS-CoV-2 (COVID-19) RNA PRIYANKA+probe Ql (Unsp spec) Not detected Normal NOT DETECTED [facility] Comment on above: Result Comment: When [...] for this test is supported by the [employer] of [employer] and Human Service's declaration that [...] used). Performed By: #### C VDTBH #### [facility] [address] [place] [address] Dr. Martin Mello D-DIMERon 11-15-2022 D-DIMER 0.33 mg/L FEU Normal <=0.59 [facility] Comment on above: Performed By: #### D DIM #### [facility] [address] [address] [address] Martin Mello D-DIMER COMMENTS SEE BELOW Normal [facility] Comment on above: Result Comment: Incr [...] hospitalization. Performed By: #### D DIM #### [facility] [address] [address] [address] Martin Mello ECG 12 lead ECGon 11-15-2022 ECG 12 lead ECG [place] [address] Electrocardiograph Report Signed Patient: Carson Mendoza MR#: [id number] : 1965 Acct:[id number] Age/Sex: 57 / M ADM Date: 11/15/22 Loc: Room: [address] [place] [address] Type: ADM IN Attending Dr: Andrew Balbuena [...] Wendy Camp MD 0 11/16/22 0658 [facility] 14(COMP METB)on 023 Albumin [Mass/Vol] 3.5 g/dL Normal 3.4-5.0 [facility] Comment on above: Performed By: #### B ESTHETICIAN AND MANAGER MEDICAL SPA, CMADM, CMP #### [facility] [address] [address] [address] Martin Mello Albumin/Globulin [Mass ratio] 0.8 {ratio} Normal [facility] Comment on above: Performed By: #### B ESTHETICIAN AND MANAGER MEDICAL SPA, CMADM, CMP #### [facility] [address] [address] [address] Martin Mello ALP [Catalytic activity/Vol] 94 U/L Normal 46-116 [facility] Comment on above: Performed By: #### B ESTHETICIAN AND MANAGER [employer] SPA, CMADM, CMP #### [facility] [address] [place] [address] Dr. Martin Mello ALT [Catalytic activity/Vol] 27 U/L Normal 16-63 [facility] Comment on above: Performed By: #### B ESTHETICIAN AND MANAGER MEDICAL SPA, CMADM, CMP #### [facility] [address] [address] [address] Martin Mello Anion gap [Moles/Vol] 16.0 mmol/L Normal [facility] Comment on above: Performed By: #### B ESTHETICIAN AND MANAGER MEDICAL SPA, CMADM, CMP #### [facility] [address] [address] [address] Martin Mello AST [Catalytic activity/Vol] 96 U/L Critically high 15-37 [facility] Comment on above: Performed By: #### B ESTHETICIAN AND MANAGER MEDICAL SPA, CMADM, CMP #### [facility] [address] [address] [address] Martin Mello Bilirubin [Mass/Vol] 1.2 mg/dL Critically high 0.2-1.0 [facility] Comment on above: Performed By: #### B ESTHETICIAN AND MANAGER MED[employer] SPA, CMADM, CMP #### [facility] [address] [address] [address] Martin Mello Calcium [Mass/Vol] 9.2 mg/dL Normal 8.5-10.1 [facility] Comment on above: Performed By: #### B ESTHETICIAN AND MANAGER MED[employer] SPA, CMADM, CMP #### [facility] [address] [address] [address] Martin Mello Chloride [Moles/Vol] 97 mmol/L Critically low 98-107 [facility] Comment on above: Performed By: #### B ESTHETICIAN AND MANAGER MEDICAL SPA, CMADM, CMP #### [facility] [address] [address] [address] Martin Mello CO2 [Moles/Vol] 25.6 mmol/L Normal 21.0-32.0 [facility] Comment on above: Performed By: #### B ESTHETICIAN AND MANAGER MEDICAL SPA, CMADM, CMP #### [facility] [address] [place] [address] Dr. Martin Mello Creatinine [Mass/Vol] 0.80 mg/dL Normal 0.70-1.30 [facility] Comment on above: Performed By: #### B ESTHETICIAN AND MANAGER MEDICAL SPA, CMADM, CMP #### [facility] [address] [place] [address] Dr. Martin Mello EGFR-AF CHINESE >60 Normal >=60 [facility] Comment on above: Performed By: #### B ESTHETICIAN AND MANAGER MEDICAL SPA, CMADM, CMP #### [facility] [address] [place] [address] Dr. Martin Mello EGFR-NON AF CHINESE >60 Normal >=60 [facility] Comment on above: Performed By: #### B ESTHETICIAN AND MANAGER MEDICAL SPA, CMADM, CMP #### [facility] [address] [place] [address] Dr. Martin Mello Globulin (S) [Mass/Vol] 4.6 g/dL Normal [facility] Comment on above: Performed By: #### B ESTHETICIAN AND MANAGER MEDICAL SPA, CMADM, CMP #### [facility] [address] [place] [address] Dr. Martin Mello Glucose [Mass/Vol] 248 mg/dL Critically high 74-106 [facility] Comment on above: Performed By: #### B ESTHETICIAN AND MANAGER MEDICAL SPA, CMADM, CMP #### [facility] [address] [place] [address] Dr. Martin Mello Potassium [Moles/Vol] 3.6 mmol/L Normal 3.5-5.1 [facility] Comment on above: Performed By: #### B ESTHETICIAN AND MANAGER MEDICAL SPA, NELY, CMP #### [facility] [address] [place] [address] Dr. Martin Mello Protein [Mass/Vol] 8.1 g/dL Normal 6.4-8.2 [facility] Comment on above: Performed By: #### B ESTHETICIAN AND MANAGER MED[employer] SPA, NELY, CMP #### [facility] [address] [address] [address] Martin Mello Sodium [Moles/Vol] 135 mmol/L Critically low 136-145 [facility] Comment on above: Performed By: #### B ESTHETICIAN AND MANAGER MED[employer] SPA, NELY, CMP #### [facility] [address] [place] [address] Dr. Martin Mello Urea nitrogen [Mass/Vol] 8.0 mg/dL Normal 7.0-18.0 [facility] Comment on above: Performed By: #### B ESTHETICIAN AND MANAGER MED[employer] SPA, NELY, CMP #### [facility] [address] [place] [address] Dr. Martin Mello Urea nitrogen/Creatinine [Mass ratio] 10.0 mg/mg Normal [facility] Comment on above: Performed By: #### B ESTHETICIAN AND MANAGER [employer] SPA, NELY, CMP #### [facility] [address] [place] [address] Dr. Martin Mello PROTIMEon 11-15-2022 INR Coag (PPP) [Relative time] 1.01 {INR} Normal [facility] Comment on above: Performed By: #### P TT, PT #### [facility] [address] [place] [address] Dr. Martin Mello INR GUIDELINES SEE BELOW Normal [facility] Comment on above: Result Comment: DANELLE RED INR: 2.0 - 3.0 CONDITIONS NOT LISTED BELOW 2.5 - 3.5 FOR PROSTHETIC HEART VALVE REPLACEMENT 2.5 - 3.5 RECURRENT THROMBOSIS Performed By: #### P TT, PT #### [facility] [address] [place] [address] Dr. Martin Mello PT Coag (PPP) [Time] 10.7 s Normal 9.0-11.6 [facility] Comment on above: Performed By: #### P TT, PT #### [facility] [address] [place], [place] [address] Dr. Martin Mello PTTon 11-15-2022 aPTT Coag (Bld) [Time] 29.4 s Normal 22.3-36.2 [facility] Comment on above: Performed By: #### P TT, PT #### [facility] [address] [place], [place] [address] Dr. Martin Mello Troponin I High Sensitivityo n 11-15-2022 Troponin I High Sensitivity 77805 pg/mL Off scale high 0-20 [facility] Comment on above: Result Comment: Critical value result called at 2039 on 11/15/22 PERFORMED BY: [place] [address] PATHOLOGIST FINE DINING SERVER JANIYA SERRANO M.D. Performed By: #### H S TROP #### [facility] [address] [place] [address] Troponin I High Sensitivity 11130 pg/mL Off scale high 0-20 [facility] Comment on above: Result Comment: Critical value result called at 1726 on 11/15/22 PERFORMED BY: [place] [address] PATHOLOGIST FINE DINING SERVER JANIYA SERRANO M.D. Performed By: #### H S TROP #### [facility] [address] [place] [address] Troponin I High Sensitivity 432639 pg/mL Off scale high 0-20 [facility] Comment on above: Result Comment: Critical value result called at 1527 on 11/15/22 PERFORMED BY: [place] [address] PATHOLOGIST F[employer] DINING SERVER JANIYA SERRANO M.D. Performed By: #### S CAN CBC, CMP, HS TROP #### [facility] [address] [place] [address] [place] Troponin I High Sensitivity 019651 pg/mL Off scale high 0-20 [facility] Comment on above: Result Comment: Resu lts called at 1303 on 11/15/22 PERFORMED BY: [place] [address] PATHOLOGIST F[employer] DINING SERVER JANIYA SERRANO M.D. Performed By: #### H S TROP #### [address] XR CHEST 1 Von 11-15-2022 XR [...] by: MELIDA SHEPHERD Date: 2022-11-15 07:48 Normal [facility] Vital Signs Date Time Vital Sign Value Performing Clinician Facility 05-25-2024 10:12040 Body height 182.9 cm Shyam Haile DO Work Phone: [facility] 05-25-2024 10:12-040 Body mass index (BMI) [Ratio] 32.36 kg/m2 Shyam Haile DO Work Phone: [facility] 05-25-2024 10:12 Body weight 108.23 kg Shyam Haile DO Work Phone: [facility] 05-25-2024 10:12-040 Diastolic blood pressure 70 mm[Hg] Shyam Haile DO Work Phone: [facility] 05-25-2024 10:12-040 Heart rate 72 /min Shyam Haile DO Work Phone: [facility] 05-25-2024 10:12-040 Systolic blood pressure 120 mm[Hg] Shyam Haile DO Work Phone: [facility] 11-19-2023 11:41-0500 Body height 182.9 cm Shyam Haile DO Work Phone: [facility] 11-19-2023 11:41-0500 Body mass index (BMI) [Ratio] 35.26 kg/m2 Shyam Haile DO Work Phone: [facility] 11-19-2023 11:41-0500 Body weight 117.94 kg Shyam Haile DO Work Phone: [facility] 11-19-2023 11:41-0500 Diastolic blood pressure 66 mm[Hg] Shyam Haile DO Work Phone: [facility] 11-19-2023 11:41-0500 Heart rate 82 /min Shyam Haile DO Work Phone: [facility] 11-19-2023 11:41-0500 Systolic blood pressure 112 mm[Hg] Shyam Haile DO Work Phone: [facility] 05-04-2023 09:14-0400 Body height 180.34 cm Chelsea S Ki Work Phone: [facility] DO Work Phone: 05-04-2023 09:14-0400 Body mass index (BMI) [Ratio] 35.57 kg/m2 Chelsea S Ki Work Phone: [facility] 250 DO Work Phone: 05-04-2023 09:14-0400 Body surface area Derived from formula 2.34 m2 Chelsea S Ki Work Phone: [facility] 250 DO Work Phone: 05-04-2023 09:14-0400 Body weight 115.67 kg Chelsea S Ki Work Phone: [facility] 250 DO Work Phone: 05-04-2023 09:14-0400 Diastolic blood pressure 86 mm[Hg] Chelsea S Ki Work Phone: [facility] 250 DO Work Phone: 05-04-2023 09:14-0400 Heart rate 94 /min Chelsea S Ki Work Phone: [facility] DO Work Phone: 05-04-2023 09:14-0400 Systolic blood pressure 114 mm[Hg] Chelsea S Ki Work Phone: [facility] DO Work Phone: 03-18-2023 09:28-0400 Body height 180.34 cm Chelsea S Ki Work Phone: [facility] DO Work Phone: 03-18-2023 09:28-0400 Body mass index (BMI) [Ratio] 35.01 kg/m2 Chelsea S Ki Work Phone: [facility] DO Work Phone: 03-18-2023 09:28-0400 Body surface area Derived from formula 2.32 m2 Chelsea S Ki Work Phone: [facility] 250 DO Work Phone: 03-18-2023 09:28-0400 Body weight 113.85 kg Chelsea S Ki Work Phone: [facility] DO Work Phone: 03-18-2023 09:28-0400 Diastolic blood pressure 68 mm[Hg] Chelsea S Ki Work Phone: [facility] 250 DO Work Phone: 03-18-2023 09:28-0400 Heart rate 100 /min Chelsea S Ki Work Phone: [facility] DO Work Phone: 03-18-2023 09:28-0400 Systolic blood pressure 112 mm[Hg] Chelsea S Ki Work Phone: [facility] DO Work Phone: 11-26-2022 09:56-0500 Body height 180.34 cm Chelsea Presleymer Work Phone: [facility] DO Work Phone: 11-26-2022 09:56-0500 Body mass index (BMI) [Ratio] 35.01 kg/m2 Chelsea Presleymer Work Phone: [facility] 250 DO Work Phone: 11-26-2022 09:56-0500 Body surface area Derived from formula 2.32 m2 Chelsea Presleymer Work Phone: [facility] 250 DO Work Phone: 11-26-2022 09:56-0500 Body weight 113.85 kg Chelsea Cheatham Work Phone: [facility] DO Work Phone: 11-26-2022 09:56-0500 Diastolic blood pressure 70 mm[Hg] Chelsea Presleymer Work Phone: [facility] DO Work Phone: 11-26-2022 09:56-0500 Heart rate 68 /min Chelsea Presleymer Work Phone: [facility] DO Work Phone: 11-26-2022 09:56-0500 Systolic blood pressure 112 mm[Hg] Chelsea Mckeon Ki Work Phone: [facility] DO Work Phone: 11-17-2022 08:00-0500 Body temperature 98.6 [degF] MD Lydia Wheat Work Phone: [facility] 11-17-2022 08:00-0500 Diastolic blood pressure 72 mm[Hg] MD Lydia Wheat Work Phone: [facility] 11-17-2022 08:00-0500 Heart rate 104 /min MD Lydia Wheat Work Phone: [facility] 11-17-2022 08:00-0500 Respiratory rate 22 /min MD Lydia Wheat Work Phone: [facility] 11-17-2022 08:00-0500 SaO2% (BldA) [Mass fraction] 95 % MD Lydia Wheat Work Phone: [facility] 11-17-2022 08:00-0500 Systolic blood pressure 121 mm[Hg] MD Lydia Wheat Work Phone: [facility] 11-17-2022 06:00-0500 Body weight 126.4 kg MD Lydia Wheat Work Phone: [facility] 11-16-2022 00:00-0500 45 1 Chelsea Cheatham Work Phone: [facility] DO Work Phone: Comment on above: [id number] 11-15-2022 12:00-0500 Body height 182.88 cm MD Lydia Wheat Work Phone: [facility] Encounters Encounter Date Encounter Type Care Provider Facility Start: 05-25-2024 End: 05-25-2024 ambulatory [facility] Ambulatory Start: 05-25-2024 End: 05-25-2024 Office outpatient visit 25 minutes Shyam Haile DO Work Phone: [facility] Comment on above: Coronary artery dise ase involving [place] coronary artery of [place] heart without angina pectoris; ST elevation myocardial infarction (STEMI) of anterolateral wall (Multi); H/O percutaneous transluminal coronary angioplasty; Mixed hyperlipidemia; Essential hypertension; BMI 32.0-32.9,adult; Chewing tobacco nicotine dependence without complication Start: 11-19-2023 End: 11-19-2023 Office outpatient visit 15 minutes Shyam Haile DO Work Phone: [facility] Comment on above: Coronary artery dise ase involving [place] coronary artery of [place] heart without angina pectoris; Cardiomyopathy, ischemic; Essential hypertension, benign; Mixed hyperlipidemia; ST elevation myocardial infarction (STEMI) of anterolateral wall (CMS/HCC); H/O percutaneous transluminal coronary angioplasty Start: 11-19-2023 End: 11-19-2023 ambulatory SHYAM HAIEL [facility] [place] Ambulatory Start: 05-04-2023 ambulatory Ms. Luis Vega Facility: Start: 05-04-2023 Office outpatient vi sit 15 minutes Chelsea S Ki Work Phone: [facility] DO Work Phone: Start: 05-04-2023 Patient encounter procedure Chelsea S Ki Work Phone: [facility] DO Work Phone: Start: 04-30-2023 Chart Update Chelsea S Crame r Work Phone: [facility] 600 DO Work Phone: Start: 04-29-2023 ambulatory Ms. Luis Vega Facility:[id number] Start: 03-18-2023 ambulatory Ms. Luis Vega Facility: Start: 03-18-2023 Office outpatient vi sit 25 minutes Chelsea S Ki Work Phone: [facility] DO Work Phone: Start: 02-17-[address] Shyam Haile Facility: Start: 12-25-[address] DOCTOR YEN Facility :H1 Start: 12-23-2022 ambulatory Ms. Luis Vega Facility: Start: 12-15-2022 Chart Update Chelsea S Crame r Work Phone: [facility] DO Work Phone: Start: 12-12-2022 ambulatory Ms. Luis Vega Facility:[id number] Start: 12-10-2022 End: 12-11-2022 ambulatory CHELSEA CHEATHAM Facility:H1 Start: 11-28-2022 End: 11-29-[address] DOCTOR YEN Facility:[facility]1 Start: 11-26-2022 ambulatory Ms. Luis Vega Facility: Start: 11-17-[address] Wendy Camp Facility:[id number] Start: 11-16-[address] Wendy Camp Facility:[id number] Start: 11-15-2022 End: 11-17-2022 Evaluation and management of inpatient Lydia Wheat [facility] Start: 11-15-2022 End: 11-17-2022 Evaluation and management of inpatient MD Lydia Wheat Work Phone: [facility] Work Phone: Start: 11-15-2022 End: [...] procedure 05/25/2025 10:00 AM EDT Office Visit [facility] [address] [facility] [address] [place] [phone] Shyam Haile DO [address] [facility] [address] [place] [address] [facility] Start: 06-05-2024 Influenza vaccination Influenza Vacc ine (#1) [facility] Start: 05-25-2024 End: 05-25-2024 Patient encounter procedure 05/25/2024 10:00 AM EDT Office Visit [facility] [address] [facility] [address] [place] [id number] Shyam Haile DO [address] [facility] [address], [facility] [address] [place] [address] [facility] Start: 05-19-2024 End: 11-19-2024 Lipid 1996 panel - Serum or Plasma Lipid Panel Lab Routine Coronary artery disease involving [place] coronary artery of [place] heart without angina pectoris Mixed hyperlipidemia H/O percutaneous transluminal coronary angioplasty Expected: 05/19/2024 (Approximate), Expires: 11/19/2024 [facility] Service Area Work Phone: Comment on above: Expected: 05/19/2024 (Approximate), Expires: 11/19/2024 Start: 11-04-2023 FUV, Provider: Shyam Haile, Status: Pen, Time: 9:50 AM FUV, Provider: Shyam Haile, Status: Pen, Time: 9:50 AM [facility] 250 DO Work Phone: Start: 06-05-2023 COVID-19 Vaccine ( season) COVID-19 Vaccine ( season) [facility] Start: 06-05-2023 Influenza vaccination Influenza Vacc ine (#1) [facility] Start: 05-04-2023 FUV, Provider: Luis Duenas, Status: Pen, Time: 9:00 AM FUV, Provider: Luis Duenas, Status: Pen, Time: 9:00 AM -[facility] DO Work Phone: Start: 04-22-2023 FUV, Provider: Luis Duenas, Status: Pen, Time: 10:30 AM FUV, Provider: Luis Duenas, Status: Pen, Time: 10:[address] [facility] DO Work Phone: Start: 04-17-2023 ECHO, Provider: TORI TIERNEY [facility] 01,[id number], Status: Pen, Time: 8:30 AM ECHO, Provider: [facility] 01,[id number], Status: Pen, Time: 8:30 AM -[facility] DO Work Phone: Start: 02-17-2023 FUV, Provider: Shyam Haile, Status: Pen, Time: 10:00 AM FUV, Provider: Shyam Haile, Status: Pen, Time: 10:[address] [facility] DO Work Phone: Start: 12-23-2022 FUV, Provider: Luis Duenas, Status: Pen, Time: 1:00 PM FUV, Provider: Luis Duenas, Status: Pen, Time: 1:00 PM -[facility] DO Work Phone: Start: 11-20-2022 Blood chemistry [facility] Start: 11-20-2022 [facility] Start: 11-19-2022 Blood chemistry [facility] Start: 11-19-2022 [facility] Start: 11-18-2022 Blood chemistry [facility] Start: 11-18-2022 [facility] Start: 11-17-2022 [facility] Start: 11-15-2022 Referral to cardiac rehabilitation program [facility] Start: 11-15-2022 [facility] Start: 11-15-2022 Hospital admission [facility] Start: 2015 Zoster Vaccines (1 of 2) Zoster Vacc doni (1 of 2) [facility] Start: 1987 DTaP/Tdap/Td Vaccine s (1 - Tdap) DTaP/Tdap/Td Vaccines (1 - Tdap) [facility] Start: 1984 Hepatitis B Vaccines (1 of 3 - 19+ 3-dose series) Hepatitis B Vaccines (1 of 3 - 19+ 3-dose series) [facility] Start: 1983 Diabetes mellitus screening Diabetes Screening [facility] Start: 1983 Hepatitis C screening Hepatitis C Sc reening [facility] Start: 1971 Pneumococcal Vaccine : Pediatrics (0 to 5 Years) and At-Risk Patients (6 to 64 Years) (1 - PCV) Pneumococcal Vaccine: Pediatrics (0 to 5 Years) and At-Risk Patients (6 to 64 Years) (1 - PCV) [facility] Start: 1971 Pneumococcal Vaccine : Pediatrics (0 to 5 Years) and At-Risk Patients (6 to 64 Years) (1 of 2 - PCV) Pneumococcal Vaccine: Pediatrics (0 to 5 Years) and At-Risk Patients (6 to 64 Years) (1 of 2 - PCV) [facility] Start: 1966 MMR Vaccines (1 of 1 - Standard series) MMR Vaccines (1 of 1 - Standard series) [facility] Start: 04-13-1966 COVID-19 Vaccine (#1) COVID-19 Vacci ne (#1) [facility] Start: 1965 Hepatitis B Vaccines (1 of 3 - 3-dose series) Hepatitis B Vaccines (1 of 3 - 3-dose series) [facility] Start: 1965 HIV screening HIV Screening [facility] Start: 1965 Lipid panel Lipid Panel [facility] Start: 1965 Screening for malign ant neoplasm of colon [facility] Start: 1965 Yearly Adult Physical Yearly Adult P hysical [facility] Patient Education Coronary Angio plasty (DC) Coronary Stenting (DC) Angina (DC) Chest Pain (DC) Drug Eluting Stents [facility] Work Phone: Patient referral [facility] Work Phone: Payers Date Payer Category Payer Self-pay 2020 Unknown 1965 Unknown [id number] 2.16.84 [id number] 1965 Unknown [id number] 2.16.84 [id number] 1965 Unknown [id number] 2.16.84 [id number] 1965 Unknown [id number] 2.16.84 [id number] 1965 Unknown [id number] 2.16.8 [id number] 1965 Unknown [id number] 2.16.8 [id number] 1965 Unknown [id number] 2.16. [id number] 1965 Unknown [id number] 2.16. 840.1.513490.3.579.2.356 1965 Unknown [id number] 2.16. [id number] 1965 Unknown [id number] 2.16. 840.1.194948.3.579.2.356 1965 Unknown [id number] 2.16. 840.1.202302.3.579.2.356 1965 Unknown [id number] 2.16. 840.1.168934.3.579.2.356 1965 Unknown [id number] 2.16. 840.1.472794.3.579.2.356 1965 Unknown [id number] 2.16. 840.1.993969.3.579.2.356 1965 Unknown [id number] 2.16.8 40.1.955499.3.579.2.1244 1965 Unknown [id number] 2.16.8 40.1.184504.3.579.2.1244 1959 Medicaid [id number] Medicaid [id number] Unknown [id number] Social History Date Type Detail Facility Start: 11-15-2022 Tobacco smoking stat us TNIS Unknown if ever smoked [facility] Start: 1965 Sex Assigned At Male F [facility] Start: 11-19-2023 Never a smoker Never a smoker -[facility] DO Work Phone: Comment on above: Mt Dew rarely non ca ffeined soda; Start: 11-19-2023 End: 05-25-2024 Tobacco smoking status NHIS Never smoked tobacco [facility] Start: 11-19-2023 Tobacco use and exposure Smokeless tobacco non-user [facility] Work Phone: Start: 11-19-2023 End: 05-25-2024 Alcohol intake Lifetime non-drinker (finding) [facility] Work Phone: Start: 1965 Sex Assigned At Not on file [facility] Work Phone: Start: 11-19-2023 Gender identity Not on file [facility] Work Phone: Start: 11-09-2023 End: 05-25-2024 Exposure to SARS-CoV-2 (event) Not sure [facility] Start: 05-25-2024 Tobacco use and exposure User of smokeless tobacco [facility] Work Phone: History of tobacco use Snuff User [facility] Work Phone: Medical Equipment Procedure Code Equipment Code Equipment Origin al Text Equipment Identifier Dates Drug-eluting coronary artery stent, [id number] lymer-coated ([id number] FDA Start: 11-15-2022 Goals Date Patient Goal Desired Activity /State Functional Status Date Assessment Result Facility 11-17-2022 Functional status Patient at Baseline [facility] Work Phone: Mental Status Date Assessment Result Facility 11-17-2022 Cognitive function Cognitive Sta tus Patient at Baseline [facility] Work Phone: Clinical Notes 11-15-2022 to [...] He has a history of large anterior KS in November [address] Balbuena [...] 3 Assessment/Plan 1. Coronary artery disease involving [place] coronary artery of [place] heart without angina pectoris Follow Up In [...] discussion and plan. documented in this encounter [facility] Work Phone: 05-25-2024 Instructions Neela Rodriguez LPN [...] be sent through Care Everywhere.Heart Healthy Diet (Syrian)documented in this encounter [facility] Work Phone: 11-19-2023 History of Present illness Narrative Subjective Carson Mendoza is a 58 y.o. male Chief Complaint Follow-up 58-year-old gentleman seen for the first time by myself, with a previous history of large anterior KS in November [address] Balbuena [...] DO. Assessment/Plan 1. Coronary artery disease involving [place] coronary artery of [place] heart without angina pectoris 2. Cardiomyopathy, ischemic 3. Essential hypertension, benign 4. Mixed hyperlipidemia 5. ST elevation myocardial infarction (STEMI) of anterolateral wall (CMS/HCC) 6. H/O percutaneous transluminal coronary angioplasty documented in this encounter [facility] Work Phone: 11-19-2023 Instructions Neela Rodriguez LPN [...] instructions on exercise. documented in this encounter [facility] Work Phone: 11-17-2022 Discharge summary Note Date/Time November 17, 2022 10:17am [facility] [address] [place] [address] Discharge Summary Signed Patient: Carson Mendoza MR#: [id number] : 1965 Acct:[id number] Age/Sex: 57 / M Adm Date: 3 Loc: Room: [address] [place] [address]: Andrew Balbuena MD Copies to: [...] Course Hospital course: 57-year-old gentleman transferred from [facility] with ST elevation myocardial [...] % (Auto) 65.4, Lymph % (Auto) 20.9, [place] % (Auto) 11.8, Eos % (Auto) 1.3, Baso % (Auto) 0.6, Nucleat RBC Rel Count 0.1, Neut # (Auto) 9.1 H, Lymph # (Auto) 2.9, [place] # (Auto) 1.6 H, Eos # (Auto) [...] doctor or pharmacist, without first calling the compress trucker who implanted the stent. If you require [...] weight lifting, stair steppers, etc. until the compress trucker approves these activities. Check with the compress trucker on your first follow-up visit. CALL YOUR PHYSICIAN at [phone]: -If bleeding should occur from the catheter insertion site- apply pressure to the site then immediately call us. -Report any fever, redness, drainage, increased swelling, or firmness at the catheter insertion site. Some bruising or slight swelling may be present at thetime of discharge. -Should arm or leg become cold, numb, white, or blue, contact the compress trucker immediately. -IF you should experience episodes of [...] is recommended. Please call Central Scheduling at [phone] to schedule your appointment.] The attending compress trucker or [facility] nurse clinician should provide you with specific instructions regarding activity, diet, medications, and further follow up for you. Follow the medication instructions provided on your discharge. If the dosages and instructions on this sheet differ from the dosage and instructions on the bottle, follow the instructions on the bottle. [facility] is not responsible for incorrect prescription [...] signed by Gato Haile DO> 11/17/22 1018 [facility] Work Phone: 1(107) 698-355302-12-2023 Progress note Author Wendy Camp [facility] November 16, 2022 10:44am Note Date/Time November 16, 2022 10:42am [facility] [address] [place] [address] Cardiology Progress Note Signed Patient: Carson Mendoza MR#: [id number] : 1965 Acct:[id number] Age/Sex: 57 / M Adm Date: 3 Loc: Room: [address] [place] [address] Type: ADM IN Attending Dr: Andrew Balbuena [...] MPV Neut % (Auto) Lymph % (Auto) [place] % (Auto) Eos % (Auto) Baso % (Auto) Nucleat RBC Rel Count Neut # (Auto) Lymph # (Auto) [place] # (Auto) Eos # (Auto) Baso # (Auto) Platelet Estimate Plt Morphology Comment RBC Morphology Polychromasia PHA Creatinine Clear Sodium Potassium Chloride Carbon Dioxide Anion Gap BUN Creatinine Est GFR ( Amer) Est GFR (Non-Af Amer) Glucose Calcium Total Bilirubin AST ALT Alkaline Phosphatase Troponin I High Sens 548672 H* 561453 H* 90260 H* Total Protein Albumin Globulin Albumin/Globulin Ratio 11/15/22 11/16/22 11/16/22 19:48 04:05 04:05 Corrected WBC 16.6 H Uncorrected WBC Count 16.6 H RBC 5.28 Hgb 14.7 Hct 41.9 MCV 79.4 L MCH 27.9 MCHC 35.1 RDW 14.3 Plt Count 357 MPV 7.8 Neut % (Auto) 68.0 Lymph % (Auto) 20.4 [place] % (Auto) 10.5 Eos % (Auto) 0.6 Baso % (Auto) 0.5 Nucleat RBC Rel Count 0.5 Neut # (Auto) 11.3 H Lymph # (Auto) 3.4 [place] # (Auto) 1.7 H Eos # (Auto) [...] Alkaline Phosphatase 70 Troponin I High Sens 69834 H* Total Protein 7.1 Albumin 3.3 Globulin 3.8 Albumin/Globulin Ratio 0.9 11/16/22 04:05 Corrected WBC Uncorrected WBC Count RBC Hgb Hct MCV MCH MCHC RDW Plt Count MPV Neut % (Auto) Lymph % (Auto) [place] % (Auto) Eos % (Auto) Baso % (Auto) Nucleat RBC Rel Count Neut # (Auto) Lymph # (Auto) [place] # (Auto) Eos # (Auto) Baso # (Auto) Platelet Estimate Plt Morphology Comment RBC Morphology Polychromasia PHA Creatinine Clear Sodium Potassium Chloride Carbon Dioxide Anion Gap BUN Creatinine Est GFR ( Amer) Est GFR (Non-Af Amer) Glucose Calcium Total Bilirubin AST ALT Alkaline Phosphatase Troponin I High Sens 14308 H* Total Protein Albumin Globulin Albumin/Globulin Ratio [...] signed by MD Wendy Camp> 11/16/22 1044 [facility] Work Phone: 1(683) 510-493602-11-2023 History and physical note Author Andrew Balbuena [facility] November 15, 2022 10:55am Note Date/Time November 15, 2022 10:55am [facility] [address] [place] [address] Cardiology H&P Signed Patient: Carson Mendoza MR#: [id number] : 1965 Acct:[id number] Age/Sex: 57 / M Adm Date: 3 Loc: Room: [address] [place] [address] Type: REG SDC Attending Dr: Andrew Balbuena [...] symptomsthe patient was brought for evaluation to [place] emergency department. In theER at [place] patient's ECG showed a bifascicular block with ST changes anteriorly which did not meet strict STEMI criteria but were very suspicious Justin elevation/current of injury. I was contacted by the ER physician from [place] shown these ECGs. The patient was still having 8/10 chest pressure. Given the presentation and abnormal EKG the patient is now being treated for acute coronary syndrome with aspirin heparin topical nitrate IV beta-keturah andloading statin dose. We will hold off on antiplatelet loading given none localizable ECG. The patient is now being transferred directly to the cardiac catheterization laboratory [facility] for emergent diagnostic left heart catheterization [...] T wave and ST suggestive of injury KS, pacemaker, normal Myocardial infarction: anterior KS (acute or recent) A&P - Cardiology (1) [...] signed by Andrew Balbuena MD> 11/15/22 1055 [facility] Work Phone: 1(406) 537-444702-11-2023 [facility] * Diagnosis Onset Date Resolution Status ST elevation myocardial infa rction (STEMI) of anterior wall acute [facility] Work Phone: Evaluation note* Diagnosis Coronary artery disease involving [place] coronary artery of [place] heart without angina pectoris Cardiomyopathy, ischemic Other specified forms of chronic ischemic heart disease Essential hypertension, benign Mixed hyperlipidemia ST elevation myocardial infarction (STEMI) of anterolateral wall (CMS/HCC) Acute myocardial infarction of anterolateral wall, episode of care unspecified H/O percutaneous transluminal coronary angioplasty documented in this encounter [facility] Work Phone: Evaluation note* Diagnosis Coronary artery disease involving [place] coronary artery of [place] heart without angina pectoris ST elevation myocardial infarction (STEMI) of anterolateral wall (Multi) Acute myocardial infarction of anterolateral wall, episode of care unspecified H/O percutaneous transluminal coronary angioplasty Mixed hyperlipidemia Essential hypertension Unspecified essential hypertension BMI 32.0-32.9,adult Chewing tobacco nicotine dependence without complication documented in this encounter [facility] Work Phone: History of Present illness Narrative* [...] medication regimen. He denies medication side effects. -[facility] Work Phone: History of Present illness Narrative* [...] medication regimen. He denies medication side effects. [facility] Work Phone: History of Present illness Narrative* [...] medication regimen. He denies medication side effects. [facility] Headley DO Work Phone: Hospital Discharge [...] doctor or pharmacist, without first calling the compress trucker who implanted the stent. If you require [...] weight lifting, stair steppers, etc. until the compress trucker approves these activities. Check with the compress trucker on your first follow-up visit. CALL YOUR PHYSICIAN at [phone]: -If bleeding should occur from the catheter insertion site- apply pressure to the site then immediately call us. -Report any fever, redness, drainage, increased swelling, or firmness at the catheter insertion site. Some bruising or slight swelling may be present at the time of discharge. -Should arm or leg become cold, numb, white, or blue, contact the compress trucker immediately. -IF you should experience episodes of [...] is recommended. Please call Central Scheduling at [phone] to schedule your appointment.] The attending compress trucker or [facility] nurse clinician should provide you with specific instructions regarding activity, diet, medications, and further follow up for you. Follow the medication instructions provided on your discharge. If the dosages and instructions on this sheet differ from the dosage and instructions on the bottle, follow the instructions on the bottle. [facility] is not responsible for incorrect prescription information provided by the patient during their visit. Do not stop your medications without consulting your health care provider. Please take the list with you to your next doctor's appointment.[facility] Work Phone: Reaxez for referral (narrative)* Consultation (Routine) - Authorized Specialty Diagnoses / Procedures Referred By Janet mariscal Referred To Contact Cardiology Diagnoses Coronary artery disease involving sav[place]onga coronary artery of sav[place]ong[place] heart without angina pectoris ST elevation myocardial infarction (STEMI) of anterolateral wall (CMS/HCC) Procedures Follow Up In Cardiology Shyam Haile DO [address] [address], [address] [address] Shyam Haile DO 703 [facility] 2, [address] [address] Referral ID Status Reason Start Date Expiration Date V isits Requested Visits Authorized [id number] Authorized 11/19/2023 11/18/2024 1 1 [facility] Work Phone: Reason for referral (narrative)* Consultation (Routine) - Authorized Specialty Diagnoses / Procedures Referred By Contjake t Referred To Contact Cardiology Diagnoses Coronary artery disease involving [place] coronary artery of [place] heart without angina pectoris Procedures Follow Up In Cardiology Shyam Haile DO [facility] [facility], [address] [address] Shyam Haile DO [facility] [facility], [facility] [address] [place] [address] Referral ID Status Reason Start Date Expiration Date V isits Requested Visits Authorized [id number] Authorized 05/25/2024 05/25/2025 1 1 [facility] Work Phone: Chief Complaint and Reason for [...] any type of exertional complaints. 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 Relationship Specialty Start Date End Date Chelsea Cheatham APRN-ACCIDENT INVESTIGATOR [address] [place] [address] PCP - General 12/12/22 [employer] Relationship Specialty Start Date End Date Chelsea Cheatham, PURCHASING MANAGER-ACCIDENT INVESTIGATOR [address] [place] [address] PCP - General 12/12/22 (unrecognized sect ion and content) No Status Records FoundNo Status Records FoundNo Status Records FoundNo Status Records FoundNo Status Records Found INFORMATION SOURCE (unrecogn ized section and content) DATE CREATED AUTHOR 11/19/2022 [facility] DATE CREATED AUTHOR AUTHOR'S ORGANIZ ATION 01/10/2023 [facility] DATE CREATED AUTHOR AUTHOR'S ORGANIZ ATION 05/01/2023 [facility] DATE CREATED AUTHOR AUTHOR'S ORGANIZ ATION 05/04/2023 [facility] DATE CREATED AUTHOR AUTHOR'S ORGANIZ ATION 05/27/2024 [facility] Reason for Visit (unrecogniz ed section and content) Reason Comments Follow-up 6 month Reason Comments Follow-up 6m Specialty Diagnoses / Procedures Referred By Janet t Referred To Contact Cardiology Diagnoses Coronary artery disease involving sav[place]onga coronary artery of sav[place]onga heart without angina pectoris ST elevation myocardial infarction (STEMI) of anterolateral wall (Multi) Procedures Follow Up In Cardiology Shyam Haile, [address] [facility], [address] [place] [address] Shyam Haile, DO [address], [address] [place] [address] Referral ID Status Reason Start Date Expiration Date V isits Requested Visits Authorized [id number] Authorized 11/19/2023 11/18/2024 1 1 FOR RECORDS [...] BE BASED ON THE PRIMARY CLINICAL RECORDS. [employer] [facility]. provides no warranty or guarantee of the accuracy or completeness of information in this document.
[2024-10-03 10:42] LABS: Thyroid Stimulating Hormone 2.419 uIU/mL (0.358-3.740)
[2024-10-03 11:00] LABS: Creatine Kinase 53 U/L (39-308); Troponin I High Sensitivity 20.6 pg/mL (4.0-76.1)
--- NOTE | 2024-10-03 11:40 | PC.NURSE ---
Arrived from ER. Patient a/o x3. Smile symmetrical with no tongue deviation. Hand grasps strong and equal. Patient denies any chest pain or shortness of breath. Admission assessment and health history profile completed. Family members at bedside. See posted vital signs.
--- NOTE | 2024-10-03 13:01 | PC.NURSE ---
Patient's eyes closed. Respirations even and nonlabored on room air. No c/o voiced.
[2024-10-03 18:34] LABS: Bilirubin Urine NEGATIVE (NEGATIVE); Blood Urine NEGATIVE (NEGATIVE); Clarity Urine CLEAR (CLEAR); Color Urine YELLOW (YELLOW); Glucose Urine UA 250 mg/dL (NEGATIVE); Ketones Urine NEGATIVE (NEGATIVE); Leukocyte Esterase Urine NEGATIVE (NEGATIVE); Nitrite Urine NEGATIVE (NEGATIVE); Protein Urine NEGATIVE (NEG/TRACE); Specific Gravity Urine 1.025 (1.005-1.025); Urobilinogen Urine >=8.0 EU/dL (0.2-1.0)
[2024-10-03 18:47] LABS: Bacteria Urine SMALL #/HPF (NONE SEEN); Cast Seen? NONE SEEN #/LPF (NONE SEEN); Crystals Seen? None Seen #/HPF (None Seen); Mucus Urine SMALL (NONE SEEN); Squamous Epithelial Cell Urine RARE #/LPF (NONE/RARE); Urine Culture Indicated YES
[2024-10-03 18:51] LABS: Amphetamine Screen Urine NEGATIVE (NEGATIVE); Barbiturates Screen Urine NEGATIVE (NEGATIVE); Benzodiazepines Screen Urine NEGATIVE (NEGATIVE); Buprenorphine Screen Urine NEGATIVE (NEGATIVE); Cannabinoid Screen Urine POSITIVE (NEGATIVE); Cocaine Screen Urine NEGATIVE (NEGATIVE); Methadone Screen Urine NEGATIVE (NEGATIVE); Methamphetamines Screen Urine NEGATIVE (NEGATIVE); Opiate Screen Urine NEGATIVE (NEGATIVE); Oxycodone Screen Urine NEGATIVE (NEGATIVE); Phencyclidine Screen Urine NEGATIVE (NEGATIVE); Tricyclic Antidepressant Urine NEGATIVE (NEGATIVE)
[2024-10-03] MEDS: ATORVASTATIN CALCIUM 40 MG TABLET PO (21:14)
[2024-10-04] VITALS (7 sets, daily range): BP systolic 112–129; BP diastolic 70–78; PULSE 64–96; TEMP 36.6; O2SAT 96–97
[2024-10-04] MEDS: ACETAMINOPHEN 500 MG TABLET 1000 MG PO (06:01)
[2024-10-04 06:11] LABS: Basophils Absolute Auto 0.1 10^3/uL (0.0-0.1); Basophils Percent Auto 0.9 % (0.2-2.0); Eosinophils Absolute Auto 0.2 10^3/uL (0.0-0.7); Eosinophils Percent Auto 2.1 % (0.9-7.0); Hematocrit 35.3 % (42.0-54.0); Hemoglobin 12.2 g/dL (14.0-18.0); Immature Granulocytes Abs Auto 0.05 10^3/uL (0.00-0.03); Immature Granulocytes Pct Auto 0.5 % (0.0-0.5); Lymphocytes Absolute Auto 2.8 10^3/uL (1.2-3.8); Lymphocytes Percent Auto 24.9 % (20.5-60.0); Mean Corpuscular HGB Conc 34.6 g/dL (29.9-35.2); Mean Corpuscular Hemoglobin 28.6 pg (25.9-34.0); Mean Corpuscular Volume 82.7 fL (80.0-94.0); Mean Platelet Volume 9.6 fL (9.5-13.5); Monocytes Absolute Auto 0.9 10^3/uL (0.3-0.8); Monocytes Percent Auto 8.4 % (1.7-12.0); Neutrophils Percent Auto 63.2 % (43.0-75.0); Platelet Count 261 10^3/uL (150-450); Red Blood Count 4.27 10^6/uL (4.70-6.10); Red Cell Distribution Width 13.8 % (11.0-15.0); White Blood Count 11.1 10^3/uL (4.0-11.0)
[2024-10-04 06:21] LABS: Anion Gap 9.7; BUN Creatinine Ratio 15.1; Calcium 8.8 mg/dL (8.5-10.1); Carbon Dioxide 27.7 mmol/L (21.0-32.0); Chloride 106 mmol/L (98-107); Estimated GFR (African America >60 (>=60 mL/min/1.73m^2); Estimated GFR (Non-African Ame >60 (>=60 mL/min/1.73m^2); Glucose 113 mg/dL (74-106); Potassium 4.4 mmol/L (3.5-5.1); Sodium 139 mmol/L (136-145)
[2024-10-04] MEDS: LOSARTAN POTASSIUM 50 MG TABLET PO (08:27)
[2024-10-04] MEDS: ASPIRIN 81 MG TAB.CHEW PO (08:28)
[2024-10-04] MEDS: CLOPIDOGREL BISULFATE 75 MG TABLET PO (08:28)
[2024-10-04] MEDS: CIPROFLOXACIN HCL 500 MG TABLET PO (08:28)
--- NOTE | 2024-10-04 09:02 | CM.NOTE ---
Rounds made with Dr. Wheat, pt will discharge to home today. Pt will f/u with PCP next week.
[2024-10-04 09:46] LABS: BOX Test Reference Lab FIRELANDS
--- NOTE | 2024-10-04 11:27 | SWNOTE1 ---
SW reviewed therapy notes and pt is independent and has family, no dc needs at this time.
--- NOTE | 2024-10-04 13:03 | P.DS_ITS ---
DS: Providers Provider Date of admission: 10/03/24 10:13 Primary care physician: CY CHEATHAM Consults: 10/03/24 Consult to Dietitian Routine Reason for consultation: weight loss Has provider been notified: No 10/03/24 09:56 Consult to TeleNeurology Routine Reason for consultation: syncope possibe seizure Occupational Therapy Eval and Treat Routine Reason for consultation: Only if needed for Rehab Has provider been notified: No Physical Therapy Eval and Treat Routine Reason for consultation: Eval and Treat Has provider been notified: No DS: Diagnosis Discharge Diagnosis (1) Weakness: (2) Syncope: Plan Admission findings: Head abrasion, CT scans all negative, does have some mild iron deficiency anemia and hypokalemia but patient very slow with his speech, no focal neurological deficits Syncope-possible seizure and currently in a postictal state, will place patient on telemetry, consulted teleneurology, check EEG, check urine drug screen, if he improves over the next 2 to 3 hours with suspect seizure, no history of seizures Coronary artery disease-status post OK in the past, no chest pain no shortness of breath like he had when he had heart trouble Hypertension-continue with home medications Hypercholesterolemia continue with home medications Admission status: Patient with syncopal episode, placed on telemetry, EEG, teleneurology, medically necessary treatment likely to span only 1 midnight, observation status, if anything comes of the workup and medically necessary treatment will then span 2 midnights, will change patient to inpatient status ? DS: Summary Hospital Course Hospital Course: Presented to the emergency room with a unwitnessed syncopal episode. He was potentially passed out for half an hour or maybe more. He was on the toilet at the time. Only injury was an abrasion to the top of his head. When I saw patient in the emergency room, he seemed to have more of that postictal kind of look in his eye, family agreed that he was not really acting himself. He had no focal neurological deficits. EEG was completed but is not read, patient feels back to his baseline. Family was to come in and if they agreed that he is back to his baseline he can be discharged to home in improving condition. Medications see list. Follow-up with PCP within the next week. 7-day Holter monitor placed at discharge Status at Discharge Overall status at discharge: patient is back to baseline Time Spent with Patient Time attestation: Total time spent providing and/or coordinating discharge services: Time spent: greater than 30 minutes Exam Constitutional Vital Signs, click to edit/add: Last Vital Signs Temp 97.8 F 10/04/24 08:00 Pulse 71 10/04/24 09:54 Resp 18 10/04/24 08:00 BP 113/70 10/04/24 08:00 Pulse Ox 96 10/04/24 10:43 O2 Del Method Room Air 10/04/24 10:43 Documenting provider has reviewed patient's vital signs: yes Common normals: no apparent distress Chest Common normals: inspection of chest normal Respiratory Common normals: normal respiratory effort and no retractions Cardio Common normals: no JVD, regular rate and regular rhythm GI Common normals: Normal to inspection, nondistended, normoactive bowel sounds present and soft to palpation Extremity Common normals: normal to inspection and full ROM DS: Data Data Completed and Pending Labs on day of discharge: Labs from last 24 hours 10/04/24 10/03/24 05:53 18:20 WBC 11.1 H RBC 4.27 L Hgb 12.2 L Hct 35.3 L MCV 82.7 MCH 28.6 MCHC 34.6 RDW 13.8 Plt Count 261 MPV 9.6 Neut % (Auto) 63.2 Lymph % (Auto) 24.9 [place] % (Auto) 8.4 Eos % (Auto) 2.1 Baso % (Auto) 0.9 Neut # (Auto) 7.0 H Lymph # (Auto) 2.8 [place] # (Auto) 0.9 H Eos # (Auto) 0.2 Baso # (Auto) 0.1 Abs Immat Gran (auto) 0.05 H Imm/Tot Granulo (auto) 0.5 Sodium 139 Potassium 4.4 Chloride 106 Carbon Dioxide 27.7 Anion Gap 9.7 BUN 14.0 Creatinine 0.93 Est GFR ( Amer) >60 Est GFR (Non-Af Amer) >60 BUN/Creatinine Ratio 15.1 Glucose 113 H Calcium 8.8 Urine Color Yellow Urine Clarity Clear Urine pH 7.0 Ur Specific [place] 1.025 Urine Protein Negative Urine Glucose (UA) 250 A Urine Ketones Negative Urine Occult Blood Negative Urine Nitrite Negative Urine Bilirubin Negative Urine Urobilinogen >=8.0 Ur Leukocyte Esterase Negative Urine RBC 5-10 A Urine WBC 5-10 A Ur Squamous Epith Cells Rare Urine Crystals None seen Urine Bacteria Small A Urine Casts None seen Urine Mucus Small A Ur Culture Indicated? Yes Urine Opiates Screen Negative Ur Buprenorphine Scrn Negative Ur Oxycodone Screen Negative Urine Methadone Screen Negative Ur Barbiturates Screen Negative U Tricyclic Antidepress Negative Ur Phencyclidine Scrn Negative Ur Amphetamines Screen Negative U Methamphetamines Scrn Negative U Benzodiazepines Scrn Negative Urine Cocaine Screen Negative U Cannabinoids Screen Positive A Ref Lab Order Date 10/03/24 Ref Lab Test Name Urine culture Ref Test Addition Info [facility] Discharge Plan Discharge Disposition: Home, Self-Care Condition: Fair Discharge Medications: New ciprofloxacin HCl 500 mg Tablet 500 mg PO BID Qty: 14 0RF Continued aspirin [Emy Chewable Aspirin] 81 mg tablet,chewable 81 mg PO DAILY atorvastatin 40 mg tablet 40 mg PO DAILY clopidogrel 75 mg tablet 75 mg PO DAILY valsartan 80 mg tablet 80 mg PO Q12H Print Language: British Patient Instructions: Ciprofloxacin (By mouth), Syncope (DC) Forms: Portal Instructions Follow Up Appointments: Oct.11 @ 1pm with Cy Cheatham NP [phone] Discharge Date/Time: 10/04/24 10:57
--- NOTE | 2024-10-06 15:40 | CM.DCFOLLOWU ---
1st attempt 10/06/24, no answer
--- NOTE | 2024-10-07 16:23 | CM.DCFOLLOWU ---
2nd attempt 10/07/24, no answer
== END 2024-10-04 10:57 | disposition home or self-care (01) ==
LOC: ER 09:37 → MS 10:18
PROVIDERS: Admitting Provider Family Medicine; Emergency Provider Emergency Medicine; PCP Nurse Practitioner Family; Visit Provider Family Medicine
DX: R55 Syncope and collapse (principal); R53.1 Weakness; I25.2 Old myocardial infarction; Z95.5 Presence of coronary angioplasty implant and graft; Z79.82 Long term (current) use of aspirin; Z79.02 Long term (current) use of antithrombotics/antiplatelets; D50.9 Iron deficiency anemia, unspecified; E87.6 Hypokalemia; I25.10 Atherosclerotic heart disease of native coronary artery without angina pectoris; I10 Essential (primary) hypertension; E78.00 Pure hypercholesterolemia, unspecified; S00.91XA Abrasion of unspecified part of head, initial encounter; W18.11XA Fall from or off toilet without subsequent striking against object, initial encounter; R07.9 Chest pain, unspecified; R42 Dizziness and giddiness
CPT/HCPCS: 36415; 70450; 71045; 72125; 80048; 80053; 80307; 81001; 82550; 83735; 83880; 84436; 84443; 84484; 85025; 85610; 87086; 87804; 87811; 93005; 93246; 94761; 95816; 97161; 97165; 99285; G0378